=== PATIENT | female | born 1970 | race Hispanic/Latino ===

== ENCOUNTER 2018-01-06 07:31 | Emergency (ER) | payer SELFPAY ==
[2018-01-06] MEDS ORDERED: ONDANSETRON 4 MG/2 ML VIAL ONE (08:19)
[2018-01-06] MEDS ORDERED: FENTANYL CITR 100 MCG/2 ML ONE (08:19)
[2018-01-06 08:35] LABS: Absolute Lymphocytes (CBC) 1.1 K/uL (0.7-4.9); Absolute Monocytes 0.4 K/uL (0.1-1.3); Absolute Neutrophil 3.2 K/uL (1.8-8.0); Basophils % 0.9 % (0-1.3); Eosinophils % 4.8 % (0-4.4); Hematocrit 38.3 % (36.0-45.0); Lymphocytes % 22.7 % (15.3-44.8); MCH 28.9 pg (27.0-35.0); MCV 86.2 fL (80-100); MPV 8.4 fL (7.6-11.3); RBC Red Blood Cell Count 4.45 M/uL (3.86-4.86)
[2018-01-06 08:39] LABS: Bicarbonate 26 mEq/L (21-31); Glucose Level 139 mg/dL (65-120); Lipase 28 U/L (22-51); Potassium 3.9 mEq/L (3.6-5.0); Sodium Level 135 mEq/L (135-145)
[2018-01-06 08:45] LABS: ALT/SGPT 19 IU/L (10-60); AST/SGOT 21 IU/L (10-42); Albumin 4.1 g/dL (3.2-5.5); Alkaline Phosphatase 70 IU/L (42-121); BUN Blood Urea Nitrogen 15 mg/dL (6-20); Bilirubin Direct 0.1 mg/dL (0-0.2); Bilirubin Total 0.8 mg/dL (0.3-1.2); Protein, Total 7.9 g/dL (6.0-8.3)
[2018-01-06 08:49] LABS: Urine Blood NEGATIVE (NEG); Urine Glucose NEGATIVE (NEG); Urine Protein NEGATIVE (NEG)
[2018-01-06 09:04] LABS: Urine Bacteria <20 /HPF (<20); Urine Culture Reflex Order NOT NEEDED; Urine RBC <5 /HPF (NONE SEEN)
--- NOTE | 2018-01-06 09:37 | RAD REPORT ---
EXAM DESCRIPTION: CT - Stone Protocol - 01/06/2018 9:10 am CLINICAL HISTORY: Abdominal pain radiating to the back, right flank pain COMPARISON: None. TECHNIQUE: Axial 5 mm thick images were obtained without oral or IV contrast. The [id number] span s the entirety of the system including uppermost abdomen and lung bases. All CT scans are performed using dose optimization technique as appropriate and may include automated exposure control or mA/KV adjustment according to patient size. FINDINGS: No hydronephrosis is present and no obstructing ureteral calculi. A 7 millimeter nonobstru cting calculus is present lower pole right kidney. No suspicious renal masses. Isodense masses and py elonephritis are not excluded on a stone protocol CT scan. Partially filled urinary bladder shows no suspicious finding. No suspicious ovarian finding. Uterus has a lobulated contour likely contains 1 o r more fibroids. At the fundus the lobulation is up to 6 cm in diameter. Multiple pelvic floor phlebo liths are present. Imaged portions of the liver, spleen and pancreas show no suspicious findings on non-contrast imaging . Liver attenuation is borderline fatty infiltrated. No significant adrenal finding. Gallstones can b e occult on CT imaging. Ultrasound same date showed no gallstones. No suspicious bowel findings. No hernia, mass or bulky lymphadenopathy noted. No free air, free fluid or inflammatory stranding. No significant bony abnormality. IMPRESSION: No hydronephrosis, obstructing calculus or acute finding. A nonobstructing 7 mm calyx calcification present lower pole right kidney. No bladder abnormality identifiable. Enlarged lobulated uterus likely containing a dominant fundal fibroid. No ovarian abnormality. No acute GI process identifiable. Liver attenuation is borderline fatty infiltrated. Isodense masses and pyelonephritis are not excluded on stone protocol technique.
--- NOTE | 2018-01-06 09:46 | ER ---
Nurse's Notes [facility] Name: Luz Maria Gonzalez Age: 47 yrs Sex: Female : 1970 Arrival Date: 01/06/2018 Time: 07:33 Bed 19 Private MD: Diagnosis: Abdominal and pelvic pain;Nausea Presentation: 01/06 07:37 Presenting complaint: Patient states: RIGHT flank pain that radiates to RLQ and nausea hb x 2 days. Transition of care: patient was not received from another setting of care. Onset of symptoms was January 05, 2018. Initial Sepsis Screen: Does the patient meet any 2 criteria? No. Patient's initial sepsis screen is negative. Does the patient have a suspected source of infection? No. Patient's initial sepsis screen is negative. Care prior to arrival: None. 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 - Social history:: Smoking status: Patient/guardian denies using tobacco. Screenin:50 Abuse screen: Denies threats or abuse. Nutritional screening: No deficits noted. aa5 Tuberculosis screening: No symptoms or risk factors identified. Fall Risk None identified. Assessment: 07:50 General: Appears uncomfortable, Behavior is calm, cooperative. Pain: Complains of pain aa5 in right mid back Pain radiates to right upper quadrant Pain currently is 9 out of 10 on a pain scale. Quality of pain is described as aching, radiating, Is continuous, Also complains of nausea. Neuro: Level of Consciousness is awake, alert, obeys commands, Oriented to person, place, time, situation. Cardiovascular: Heart tones S1 S2 present Rhythm is regular. Respiratory: Airway is patent Respiratory effort is even, unlabored, Respiratory pattern is regular, symmetrical. GI: Abdomen is obese, Bowel sounds present X 4 quads. Abd is soft X 4 quads Abdomen is tender to palpation in right upper quadrant Reports nausea, Patient currently denies diarrhea, vomiting. : Reports burning with urination 2 weeks ago and has resolved. EENT: No signs and/or symptoms were reported regarding the EENT system. Derm: Skin is pink, warm \T\ dry. Musculoskeletal: Range of motion: intact in all extremities. 08:25 Reassessment: Patient and/or family updated on plan of care and expected duration. Pain aa5 level reassessed. Patient is alert, oriented x 3, equal unlabored respirations, skin warm/dry/pink. Pt back from US . 09:01 Reassessment: Patient and/or family updated on plan of care and expected duration. Pain aa5 level reassessed. Patient is alert, oriented x 3, equal unlabored respirations, skin warm/dry/pink. Patient states feeling better. Denies nausea . Pain: Pain currently is 4 out of 10 on a pain scale. 10:20 Reassessment: Patient is alert, oriented x 3, equal unlabored respirations, skin aa5 warm/dry/pink. Vital Signs: 07:37 BP 167 / 94; Pulse 69; Resp 16; Temp 98.1(TE); Pulse Ox 100% on R/A; Weight 95.25 kg; hb Height 5 ft. 2 in. (157.48 cm); Pain 9/10; 08:32 BP 144 / 71; Pulse 67; Resp 16 S; Pulse Ox 98% on R/A; Pain 9/10; aa5 09:20 BP 138 / 82; Pulse 65; Resp 16; Pulse Ox 97% on R/A; mh5 10:20 BP 131 / 84; Pulse 68; Resp 18 S; Pulse Ox 98% on R/A; Pain 3/10; aa5 07:37 Body Mass Index 38.41 (95.25 kg, 157.48 cm) hb ED Course: 07:33 Patient arrived in ED. as 07:38 Triage completed. hb 07:39 Arm band placed on right wrist. hb 07:50 Elias Rees PA is PHCP. jr8 07:50 Anthony Levine MD is Attending Physician. jr8 07:50 Patient has correct armband on for positive identification. Placed in gown. Bed in low aa5 position. Call light in reach. Side rails up X 1. Adult w/ patient. 07:50 Urine collected: clean catch specimen, clear. [facility] 07:58 Lindsay Nichols, RN is Primary Nurse. aa5 08:12 Initial lab(s) drawn, by me, sent to lab. Inserted saline lock: 20 gauge in right aa5 forearm, using aseptic technique. Blood collected. 08:18 Patient taken to ultrasound. aa4 08:29 US Abdomen Limited In Process Unspecified. EDMS 08:38 Patient moved back from ultrasound. aa4 09:09 CT completed. Patient tolerated procedure well. Patient moved to CT via wheelchair. Patient moved back from CT. 09:10 CT Stone Protocol In Process Unspecified. EDMS 10:20 IV discontinued, intact, bleeding controlled, No redness/swelling at site. Pressure aa5 dressing applied. 10:20 No provider procedures requiring assistance completed. aa5 Administered Medications: 08:25 Drug: Zofran 4 mg Route: IVP; Site: right forearm; aa5 08:27 Drug: fentaNYL (PF) 50 mcg Route: IVP; Site: right forearm; aa5 Outcome: 09:46 Discharge ordered by . griffin 10:25 Discharged to home ambulatory, with significant other. aa5 10:25 Condition: improved 10:25 Discharge instructions given to patient, Instructed on discharge instructions, follow up and referral plans. medication usage, Demonstrated understanding of instructions, follow-up care, medications, Prescriptions given X 2. 10:30 Patient left the ED. aa5 Signatures: Dispatcher [employer] EDItzel Damian Tayla Hernandez Amanda aa4 Lindsay Nichols, RN RN 5 Elias Rees PA PA Kath Johnson RN RN hb Martinez, Maria [facility]
--- NOTE | 2018-01-06 09:46 | EDPHYS ---
Physician Documentation [facility] Name: Luz Maria Gonzalez Age: 47 yrs Sex: Female : 1970 Arrival Date: 01/06/2018 Time: 07:33 Bed 19 Private MD: ED Physician Anthony Levine HPI: 01/06 08:18 This 47 yrs old Female presents to ER via Ambulatory with complaints of jr8 Abdominal Pain, Flank Pain, Nausea. 08:18 The patient presents with abdominal pain in the upper abdomen. Onset: The jr8 symptoms/episode began/occurred acutely, today. The symptoms radiate to right back, the right flank. Associated signs and symptoms: Pertinent positives: nausea. The symptoms are described as stabbing. Modifying factors: The symptoms are alleviated by nothing, the symptoms are aggravated by nothing. Severity of pain: At its worst the pain was moderate in the emergency department the pain is unchanged. The patient has not experienced similar symptoms in the past. The patient has not recently seen a physician. 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 - Social history:: Smoking status: Patient/guardian denies using tobacco. ROS: 08:39 Constitutional: Negative for fever, chills, and weight loss, Eyes: Negative for injury, jr8 pain, redness, and discharge, ENT: Negative for injury, pain, and discharge, Neck: Negative for injury, pain, and swelling, Cardiovascular: Negative for chest pain, palpitations, and edema, Respiratory: Negative for shortness of breath, cough, wheezing, and pleuritic chest pain, Back: Negative for injury and pain, MS/Extremity: Negative for injury and deformity, Skin: Negative for injury, rash, and discoloration, Neuro: Negative for headache, weakness, numbness, tingling, and seizure. 08:39 Abdomen/GI: Positive for abdominal pain, nausea, Negative for vomiting, diarrhea, constipation, abdominal cramps, abdominal distension, anorexia, dysphagia, hematemesis, black/tarry stool, rectal pain, rectal bleeding, bowel incontinence, flatulence. Exam: 08:39 Eyes: Pupils equal round and reactive to light, extra-ocular motions intact. Lids and jr8 lashes normal. Conjunctiva and sclera are non-icteric and not injected. Cornea within normal limits. Periorbital areas with no swelling, redness, or edema. ENT: Nares patent. No nasal discharge, no septal abnormalities noted. Tympanic membranes are normal and external auditory canals are clear. Oropharynx with no redness, swelling, or masses, exudates, or evidence of obstruction, uvula midline. Mucous membranes moist. Neck: Trachea midline, no thyromegaly or masses palpated, and no cervical lymphadenopathy. Supple, full range of motion without nuchal rigidity, or vertebral point tenderness. No Meningismus. Cardiovascular: Regular rate and rhythm with a normal S1 and S2. No gallops, murmurs, or rubs. Normal PMI, no JVD. No pulse deficits. Respiratory: Lungs have equal breath sounds bilaterally, clear to auscultation and percussion. No rales, rhonchi or wheezes noted. No increased work of breathing, no retractions or nasal flaring. Back: No spinal tenderness. No costovertebral tenderness. Full range of motion. Skin: Warm, dry with normal turgor. Normal color with no rashes, no lesions, and no evidence of cellulitis. MS/ Extremity: Pulses equal, no cyanosis. Neurovascular intact. Full, normal range of motion. Neuro: Awake and alert, GCS 15, oriented to person, place, time, and situation. Cranial nerves II-XII grossly intact. Motor strength 5/5 in all extremities. Sensory grossly intact. Cerebellar exam normal. Normal gait. 08:39 Abdomen/GI: Inspection: abdomen appears normal, Bowel sounds: active, all quadrants, Palpation: soft, in all quadrants, moderate abdominal tenderness, in the right upper quadrant, mass, is not appreciated, rebound tenderness, is not appreciated, voluntary guarding, is not appreciated, involuntary guarding, is not appreciated, no appreciated organomegaly, Indicators: McBurney's point is not tender, Rodriguez's sign is negative, Rovsing's sign is negative, Liver: no appreciated palpable abnormalities, tenderness, is not appreciated. Vital Signs: 07:37 BP 167 / 94; Pulse 69; Resp 16; Temp 98.1(TE); Pulse Ox 100% on R/A; Weight 95.25 kg; hb Height 5 ft. 2 in. (157.48 cm); Pain 9/10; 08:32 BP 144 / 71; Pulse 67; Resp 16 S; Pulse Ox 98% on R/A; Pain 9/10; aa5 09:20 BP 138 / 82; Pulse 65; Resp 16; Pulse Ox 97% on R/A; mh5 10:20 BP 131 / 84; Pulse 68; Resp 18 S; Pulse Ox 98% on R/A; Pain 3/10; aa5 07:37 Body Mass Index 38.41 (95.25 kg, 157.48 cm) hb MDM: 07:50 Patient medically screened. jr8 09:41 Differential diagnosis: cholecystitis, Cholelithiasis, Hepatitis, non-specific abd jr8 pain, pancreatitis, Peptic Ulcer Disease, Pyelonephritis, Ureterolithiasis, urinary tract infection. Data reviewed: vital signs, nurses notes, lab test result(s), radiologic studies, CT scan, ultrasound, and as a result, I will discharge patient. Data interpreted: Pulse oximetry: on room air is 97 %. Interpretation: normal. 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 Special discussion: Based on the patient's Hx, exam, and Dx evaluation, there is no indication for emergent surgery or inpatient Tx. It is understood by the patient/guardian that if the Sx's persist or worsen they need to return immediately for re-evaluation. 09:48 ED course: No acute findings on imaging or labs. Patient resting comfortably in exam jr8 room. No pain with reexamination. Family and patient good with being D/C'd on meds and following up. If worse would come back . 01/06 07:55 Order name: Urine Dipstick--Ancillary (enter results); Complete Time: 08:53 bd 01/06 07:55 Order name: Urine --Ancillary (enter results); Complete Time: 08:53 01/06 08:00 Order name: Basic Metabolic Panel; Complete Time: 08:53 01/06 08:00 Order name: CBC with Diff; Complete Time: 08:53 01/06 08:00 Order name: Creatinine for Radiology; Complete Time: 08:39 01/06 08:00 Order name: Hepatic Function; Complete Time: 08:53 01/06 08:00 Order name: Lipase; Complete Time: 08:53 01/06 08:00 Order name: Urine Microscopic Only; Complete Time: 09:14 01/06 08:00 Order name: IV Saline Lock; Complete Time: 08:15 01/06 08:01 Order name: US Abdomen Limited; Complete Time: 10:07 01/06 08:53 Order name: CT Stone Protocol; Complete Time: 09:41 01/06 08:00 Order name: Labs collected and sent; Complete Time: 08:15 Administered Medications: 08:25 Drug: Zofran 4 mg Route: IVP; Site: right forearm; aa5 08:27 Drug: fentaNYL (PF) 50 mcg Route: IVP; Site: right forearm; aa5 Disposition: 12:43 Co-signature as Attending Physician, Anthony Levine MD. Disposition: 01/06/18 09:46 Discharged to Home. Impression: Abdominal and pelvic pain, Nausea. - Condition is Stable. - Discharge Instructions: Abdominal Pain, Adult, Nausea, Adult. - Prescriptions for Zofran 4 mg Oral Tablet - take 1 tablet by ORAL route every 12 hours As needed; 20 tablet. Tramadol 50 mg Oral Tablet - take 1 tablet by ORAL route every 8 hours as needed; 12 tablet. - Work release form, Family Work Release, Medication Reconciliation Form, Thank You Letter, Antibiotic Education, Prescription Opioid Use form. - Follow up: Private Physician; When: 1 - 2 days; Reason: Recheck today's complaints, Continuance of care, Re-evaluation by your physician. - Problem is new. - Symptoms have improved. Signatures: Dispatcher [employer] EDLindsay Burnette RN RN aa5 Elias Rees PA PA jr8 Kath Barton RN RN Anthony Cedillo MD MD gs Corrections: (The following items were deleted from the chart) 08:12 08:01 Stone Protocol+CT.RAD.BRZ ordered. EDMS EDMS
--- NOTE | 2018-01-06 10:04 | RAD REPORT ---
EXAM DESCRIPTION: US - Abdomen Exam Limited - 01/06/2018 8:29 am CLINICAL HISTORY: Abdominal pain, right upper quadrant pain COMPARISON: None. FINDINGS: No gallstones, sludge or other abnormalities within the gallbladder lumen. There is no wal l thickening or pericholecystic fluid. No common duct stone or biliary tree dilatation identified. IMPRESSION: Normal gallbladder and biliary tree ultrasound.
== END 2018-01-06 10:30 | disposition home or self-care (01) ==
LOC: ER 07:31
DX: R11.0 Nausea (principal); I10 Essential (primary) hypertension; E11.9 Type 2 diabetes mellitus without complications; F32.9 Major depressive disorder, single episode, unspecified
CPT/HCPCS: 36415; 74176; 76377; 76705; 80048; 80076; 81003; 81015; 81025; 83690; 85025; 96374; 96375; 99284; J2405; J3010

== ENCOUNTER 2018-02-10 06:09 | Emergency (ER) | payer OTHER, SELFPAY ==
[2018-02-10] MEDS ORDERED: ONDANSETRON 4 MG (ODT) TAB ONE (06:38)
[2018-02-10] MEDS ORDERED: CLINDAMYCIN HCL 150 MG CAP ONE (06:38)
[2018-02-10] MEDS ORDERED: HYDROCODONE/APAP 5/325 MG TAB ONE (06:38)
--- NOTE | 2018-02-10 07:43 | ER ---
Nurse's Notes [facility] Name: Luz Maria Gonzalez Age: 47 yrs Sex: Female : 1970 Arrival Date: 02/10/2018 Time: 06:12 Bed 5 Private MD: Diagnosis: Insect bite (nonvenomous) of lower leg Presentation: 02/10 06:24 Presenting complaint: Patient states: SOMETHING BIT ME ON THE LEG. Transition of care: bp patient was not received from another setting of care. Onset of symptoms was February 09, 2018 at 09:00. Risk Assessment: Do you want to hurt yourself or someone else? Patient reports no desire to harm self or others. Initial Sepsis Screen: Does the patient meet any 2 criteria? No. Patient's initial sepsis screen is negative. Does the patient have a suspected source of infection? No. Patient's initial sepsis screen is negative. Care prior to arrival: None. 06:24 Method Of Arrival: Ambulatory bp 06:24 Acuity: ROLO 4 bp Triage Assessment: 06:26 Bite description: bite sustained to medial aspect of right calf by a spider, animal bp information: UNWITNESSED. General: Appears in no apparent distress. comfortable, obese, Behavior is calm, cooperative, appropriate for age. Pain: Complains of pain in medial aspect of right calf. EENT: No deficits noted. Neuro: Level of Consciousness is awake, alert, obeys commands, Oriented to person, place, time, situation, Appropriate for age. Cardiovascular: No deficits noted. Respiratory: Airway is patent Respiratory effort is even, unlabored, Respiratory pattern is regular, symmetrical. GI: No signs and/or symptoms were reported involving the gastrointestinal system. : No signs and/or symptoms were reported regarding the genitourinary system. Derm: Wound noted medial aspect of right calf Wound is 1 CM LESION WITH 5 CM INDURATED AREA. Musculoskeletal: Circulation, motion, and sensation intact. Range of motion: intact in all extremities. 07:58 Bite description: animal information: vaccination(s) is not applicable. 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 - Social history:: Smoking status: Patient/guardian denies using tobacco. - Ebola Screening: : Patient negative for fever greater than or equal to 101.5 degrees Fahrenheit, and additional compatible Ebola Virus Disease symptoms Patient denies exposure to infectious person Patient denies travel to an Ebola-affected area in the 21 days before illness onset No symptoms or risks identified at this time. Screenin:30 Abuse screen: Denies threats or abuse. Denies injuries from another. Nutritional bp screening: No deficits noted. Tuberculosis screening: No symptoms or risk factors identified. Fall Risk None identified. Assessment: 06:29 General: SEE TRIAGE NOTE. PT DENIES WITNESSING "SPIDER BITE", NOTICED LESION Y/D AFTER bp WORK. Derm: Skin is intact, is healthy with good turgor, Skin is pink, warm \\T\\ dry. 07:58 Reassessment: Patient appears in no apparent distress at this time. Patient and/or iw family updated on plan of care and expected duration. Pain level reassessed. Patient is alert, oriented x 3, equal unlabored respirations, skin warm/dry/pink. Patient states symptoms have improved. Vital Signs: 06:26 BP 135 / 74; Pulse 71; Resp 16; Temp 97.9; Pulse Ox 99% ; Weight 88.45 kg; Height 5 ft. bp 2 in. (157.48 cm); 07:58 BP 117 / 78; Pulse 87; Resp 16; Pulse Ox 98% on R/A; Pain 0/10; iw 06:26 Body Mass Index 35.67 (88.45 kg, 157.48 cm) bp ED Course: 06:12 Patient arrived in ED. es 06:19 Madison Yang FNP-C is PHCP. snw 06:19 Chau Mattson MD is Attending Physician. snw 06:24 William Lopez, VALENTÍN is Primary Nurse. bp 06:25 Triage completed. bp 06:26 Arm band placed on. bp 06:30 Patient has correct armband on for positive identification. Bed in low position. Call bp light in reach. Side rails up X2. Adult w/ patient. 07:58 No provider procedures requiring assistance completed. Patient did not have IV access iw during this emergency room visit. Administered Medications: 06:38 Drug: Zofran 4 mg Route: PO; bp 06:39 Follow up: Response: No adverse reaction bp 06:39 Drug: Clindamycin 300 mg Route: PO; bp 06:39 Follow up: Response: No adverse reaction bp 06:39 Drug: [place] 5 mg-325 mg 1 tabs Route: PO; bp 06:39 Follow up: Response: Pain is decreased bp Outcome: 07:42 Discharge ordered by MD. galvan 07:58 Discharged to home ambulatory, with family. iw 07:58 Condition: good 07:58 Discharge instructions given to patient, family, Instructed on discharge instructions, follow up and referral plans. medication usage, Demonstrated understanding of instructions, follow-up care, medications, Prescriptions given X 2. 07:58 Patient left the ED. iw Signatures: Madison Yang, FLAT MACHINE CUTTER-C FLAT MACHINE CUTTER-Csnw Era Emerson Irene, RN RN iw William Lopez RN RN bp
--- NOTE | 2018-02-10 07:43 | EDPHYS ---
Physician Documentation [facility] Name: Luz Maria Gonzalez Age: 47 yrs Sex: Female : 1970 Arrival Date: 02/10/2018 Time: 06:12 Bed 5 Private MD: ED Physician Chau Mattson HPI: 02/10 06:37 This 47 yrs old Female presents to ER via Ambulatory with complaints of Insect snw Bite. 06:37 Onset: The symptoms/episode began/occurred suddenly, yesterday. The patient has not snw experienced similar symptoms in the past. It is unknown whether or not the patient has recently seen a physician. no fever, + tender to touch. 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 - Social history:: Smoking status: Patient/guardian denies using tobacco. - Ebola Screening: : Patient negative for fever greater than or equal to 101.5 degrees Fahrenheit, and additional compatible Ebola Virus Disease symptoms Patient denies exposure to infectious person Patient denies travel to an Ebola-affected area in the 21 days before illness onset No symptoms or risks identified at this time. ROS: 06:34 Constitutional: Negative for fever, chills, and weight loss, Eyes: Negative for injury, snw pain, redness, and discharge, ENT: Negative for injury, pain, and discharge, Neck: Negative for injury, pain, and swelling, Cardiovascular: Negative for chest pain, palpitations, and edema, Respiratory: Negative for shortness of breath, cough, wheezing, and pleuritic chest pain, Abdomen/GI: Negative for abdominal pain, nausea, vomiting, diarrhea, and constipation, Back: Negative for injury and pain, : Negative for injury, bleeding, discharge, and swelling, MS/Extremity: Negative for injury and deformity, Neuro: Negative for headache, weakness, numbness, tingling, and seizure. 06:34 Skin: Positive for puncture, swelling, of the medial aspect of right calf. Exam: 06:34 Constitutional: This is a well developed, well nourished patient who is awake, alert, snw and in no acute distress. Head/Face: Normocephalic, atraumatic. Eyes: Pupils equal round and reactive to light, extra-ocular motions intact. Lids and lashes normal. Conjunctiva and sclera are non-icteric and not injected. Cornea within normal limits. Periorbital areas with no swelling, redness, or edema. ENT: Nares patent. No nasal discharge, no septal abnormalities noted. Tympanic membranes are normal and external auditory canals are clear. Oropharynx with no redness, swelling, or masses, exudates, or evidence of obstruction, uvula midline. Mucous membranes moist. Neck: Trachea midline, no thyromegaly or masses palpated, and no cervical lymphadenopathy. Supple, full range of motion without nuchal rigidity, or vertebral point tenderness. No Meningismus. Chest/axilla: Normal chest wall appearance and motion. Nontender with no deformity. No lesions are appreciated. Cardiovascular: Regular rate and rhythm with a normal S1 and S2. No gallops, murmurs, or rubs. Normal PMI, no JVD. No pulse deficits. Respiratory: Lungs have equal breath sounds bilaterally, clear to auscultation and percussion. No rales, rhonchi or wheezes noted. No increased work of breathing, no retractions or nasal flaring. Abdomen/GI: Soft, non-tender, with normal bowel sounds. No distension or tympany. No guarding or rebound. No evidence of tenderness throughout. Back: No spinal tenderness. No costovertebral tenderness. Full range of motion. MS/ Extremity: Pulses equal, no cyanosis. Neurovascular intact. Full, normal range of motion. Neuro: Awake and alert, GCS 15, oriented to person, place, time, and situation. Cranial nerves II-XII grossly intact. Motor strength 5/5 in all extremities. Sensory grossly intact. Cerebellar exam normal. Normal gait. 06:34 Skin: Appearance: normal except for affected area, injury, bite(s), small with scab and small area of erythema surrounding puncture. Will remove scab and give po antibiotics. pt NIDDM. Vital Signs: 06:26 BP 135 / 74; Pulse 71; Resp 16; Temp 97.9; Pulse Ox 99% ; Weight 88.45 kg; Height 5 ft. bp 2 in. (157.48 cm); 07:58 BP 117 / 78; Pulse 87; Resp 16; Pulse Ox 98% on R/A; Pain 0/10; iw 06:26 Body Mass Index 35.67 (88.45 kg, 157.48 cm) bp MDM: 06:19 Patient medically screened. snw 07:43 Data reviewed: vital signs, nurses notes. Data interpreted: Pulse oximetry: on room air snw is 99 %. Interpretation: normal. Counseling: I had a detailed discussion with the patient and/or guardian regarding: the historical points, exam findings, and any diagnostic results supporting the discharge/admit diagnosis, the need for outpatient follow up, to return to the emergency department if symptoms worsen or persist or if there are any questions or concerns that arise at home. Special discussion: Based on the history and exam findings, there is no indication for further emergent testing or inpatient evaluation. I discussed with the patient/guardian the need to see the primary care provider for further evaluation of the symptoms. Administered Medications: 06:38 Drug: Zofran 4 mg Route: PO; bp 06:39 Follow up: Response: No adverse reaction bp 06:39 Drug: Clindamycin 300 mg Route: PO; bp 06:39 Follow up: Response: No adverse reaction bp 06:39 Drug: [place] 5 mg-325 mg 1 tabs Route: PO; bp 06:39 Follow up: Response: Pain is decreased bp Disposition: 15:09 Co-signature as Attending Physician, Chau Mattson MD I agree with the assessment and maykel plan of care. Disposition: 02/10/18 07:42 Discharged to Home. Impression: Insect bite (nonvenomous) of lower leg. - Condition is Stable. - Discharge Instructions: Insect Bite. - Prescriptions for Bactroban 2 % Topical Ointment - Apply to affected area 1 application by TOPICAL route every 12 hours; 30 gram. Clindamycin HCl 300 mg Oral Capsule - take 1 capsule by ORAL route every 8 hours for 10 days; 30 capsule. - Medication Reconciliation Form, Thank You Letter, Antibiotic Education, Prescription Opioid Use, Work release form, Family Work Release form. - Follow up: Private Physician; When: 2 - 3 days; Reason: Recheck today's complaints, Continuance of care, Re-evaluation by your physician. Follow up: Emergency Department; When: As needed; Reason: Worsening of condition. Signatures: Chau Mattson MD MD cha Therrien, Shelly, BANDAGE WINDING MACHINE OPERATOR-C BANDAGE WINDING MACHINE OPERATOR-Csnw Bharati Martin, RN RN William Segovia RN RN bp Corrections: (The following items were deleted from the chart) 07:58 07:42 02/10/2018 07:42 Discharged to Home. Impression: Insect bite (nonvenomous) of iw lower leg. Condition is Stable. Discharge Instructions: Insect Bite. Prescriptions for Bactroban 2 % Topical Ointment - Apply to affected area 1 application by TOPICAL route every 12 hours; 30 gram, Clindamycin HCl 300 mg Oral Capsule - take 1 capsule by ORAL route every 8 hours for 10 days; 30 capsule. and Forms are Medication Reconciliation Form, Thank You Letter, Antibiotic Education, Prescription Opioid Use. Follow up: Private Physician; When: 2 - 3 days; Reason: Recheck today's complaints, Continuance of care, Re-evaluation by your physician. Follow up: Emergency Department; When: As needed; Reason: Worsening of condition. snw
== END 2018-02-10 07:58 | disposition home or self-care (01) ==
LOC: ER 06:09
DX: S80.861A Insect bite (nonvenomous), right lower leg, initial encounter (principal); F32.9 Major depressive disorder, single episode, unspecified; E11.9 Type 2 diabetes mellitus without complications; I10 Essential (primary) hypertension
CPT/HCPCS: 99283

== ENCOUNTER 2018-02-28 13:58 | Emergency (ER) | payer OTHER, SELFPAY ==
[2018-02-28] MEDS ORDERED: HYDROCODONE/APAP 10/325 TAB ONE (15:54)
[2018-02-28] MEDS ORDERED: CEFTRIAXONE 1000 MG/VIAL ONE (15:54)
[2018-02-28] MEDS ORDERED: LIDOCAINE 1% MPF 5 ML VIAL ONE (15:54)
--- NOTE | 2018-02-28 16:00 | ER ---
Nurse's Notes [facility] Name: Luz Maria Gonzalez Age: 48 yrs Sex: Female : 1970 Arrival Date: 02/28/2018 Time: 14:02 Bed 26 Private MD: None, None Diagnosis: Cellulitis of right lower limb Presentation: 02/28 14:22 Presenting complaint: Patient states: bitten by unknown insect 2 days ago. Pt reports sv increased redness and swelling. Pain with ambulation. Transition of care: patient was not received from another setting of care. Onset of symptoms was February 26, 2018. Risk Assessment: Do you want to hurt yourself or someone else? Patient reports no desire to harm self or others. Care prior to arrival: None. 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 - Social history:: Smoking status: Patient/guardian denies using tobacco. - Ebola Screening: : No symptoms or risks identified at this time. Screenin:46 Abuse screen: Denies threats or abuse. Nutritional screening: No deficits noted. tl3 Tuberculosis screening: No symptoms or risk factors identified. Fall Risk None identified. Assessment: 15:46 General: Appears uncomfortable, well groomed, well developed, well nourished, Behavior tl3 is calm, cooperative, appropriate for age. Pain: Complains of pain in right ankle. Neuro: Level of Consciousness is awake, alert, obeys commands, Oriented to person, place, time, situation, Appropriate for age. Cardiovascular: Patient's skin is warm and dry. Respiratory: Airway is patent Respiratory effort is even, unlabored, Respiratory pattern is regular, symmetrical. GI:. GI: No signs and/or symptoms were reported involving the gastrointestinal system. : No signs and/or symptoms were reported regarding the genitourinary system. EENT: No signs and/or symptoms were reported regarding the EENT system. Derm: Reports pain. Musculoskeletal: Reports pain in right ankle from insect bite, ankle and foot mildly swollen. Vital Signs: 14:24 BP 152 / 70; Pulse 77; Resp 18; Temp 98; Pulse Ox 97% ; Weight 95.25 kg; Height 5 ft. 2 sv in. (157.48 cm); Pain 8/10; 15:46 BP 132 / 78; Pulse 69; Resp 18; Pulse Ox 97% ; tl3 16:42 BP 128 / 75; Pulse 72; Resp 18; Pulse Ox 99% on R/A; tl3 14:24 Body Mass Index 38.41 (95.25 kg, 157.48 cm) sv ED Course: 14:02 Patient arrived in ED. mr 14:02 None, None is Private Physician. mr 14:23 Triage completed. sv 14:25 Arm band placed on right wrist. sv 14:25 Patient placed in waiting room. sv 15:19 Mady Tyler, VALENTÍN is Primary Nurse. tl3 15:23 Elias Rees PA is PHCP. jr8 15:23 Harrison Escobedo MD is Attending Physician. jr8 15:46 Patient has correct armband on for positive identification. Placed in gown. Bed in low tl3 position. Call light in reach. Side rails up X 1. Adult w/ patient. Pulse ox on. NIBP on. 15:46 No provider procedures requiring assistance completed. Patient did not have IV access tl3 during this emergency room visit. Administered Medications: 15:58 Drug: Rocephin (cefTRIAXone) 1 grams Route: IM; Site: right gluteus; tl3 16:42 Follow up: Response: No adverse reaction tl3 15:58 Drug: [place] 10 mg-325 mg 1 tabs Route: PO; tl3 16:42 Follow up: Response: No adverse reaction; Pain is decreased tl3 Outcome: 15:59 Discharge ordered by . jr8 16:42 Patient left the ED. sv Signatures: Kaye Lindquist RN RN Luz Maria Mireles mr Elias Rees PA PA jr8 Mady Tyler RN RN tl3
--- NOTE | 2018-02-28 16:00 | EDPHYS ---
Physician Documentation [facility] Name: Luz Maria Gonzalez Age: 48 yrs Sex: Female : 1970 Arrival Date: 02/28/2018 Time: 14:02 Bed 26 Private MD: None, None ED Physician Harrison Escobedo HPI: 02/28 15:50 This 48 yrs old Female presents to ER via Ambulatory with complaints of Ankle jr8 Swelling. 15:50 The complaints affect the right ankle. Onset: The symptoms/episode began/occurred jr8 gradually, 2 day(s) ago. Associated signs and symptoms: Pertinent positives: warmth. Modifying factors: The symptoms are alleviated by nothing, the symptoms are aggravated by weight bearing, movement. Severity of symptoms: At their worst the symptoms were moderate, in the emergency department the symptoms are unchanged. The patient has not experienced similar symptoms in the past. The patient has not recently seen a physician. Patient stated that she thinks she was bit by something the other day. Has swelling to ankle with redness. Pain with touch and weight bear . 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 - Social history:: Smoking status: Patient/guardian denies using tobacco. - Ebola Screening: : No symptoms or risks identified at this time. ROS: 15:50 Eyes: Negative for injury, pain, redness, and discharge, ENT: Negative for injury, jr8 pain, and discharge, Neck: Negative for injury, pain, and swelling, Cardiovascular: Negative for chest pain, palpitations, and edema, Respiratory: Negative for shortness of breath, cough, wheezing, and pleuritic chest pain, Abdomen/GI: Negative for abdominal pain, nausea, vomiting, diarrhea, and constipation, Back: Negative for injury and pain, MS/Extremity: Negative for injury and deformity, Neuro: Negative for headache, weakness, numbness, tingling, and seizure. 15:50 Skin: Positive for erythema, swelling, of the right ankle. Exam: 15:50 Cardiovascular: Regular rate and rhythm with a normal S1 and S2. No gallops, murmurs, jr8 or rubs. Normal PMI, no JVD. No pulse deficits. Respiratory: Lungs have equal breath sounds bilaterally, clear to auscultation and percussion. No rales, rhonchi or wheezes noted. No increased work of breathing, no retractions or nasal flaring. MS/ Extremity: Pulses equal, no cyanosis. Neurovascular intact. Full, normal range of motion. Neuro: Awake and alert, GCS 15, oriented to person, place, time, and situation. Cranial nerves II-XII grossly intact. Motor strength 5/5 in all extremities. Sensory grossly intact. Cerebellar exam normal. Normal gait. 15:50 Skin: induration, that is moderate is noted, located on the right ankle, Patient has approximately 2.5 cm region to lateral ankle near Achillis that is red and well demarcated. Indurated without fluctuance. Mild surrounding cellulitis noted. No lymphangitis . Vital Signs: 14:24 BP 152 / 70; Pulse 77; Resp 18; Temp 98; Pulse Ox 97% ; Weight 95.25 kg; Height 5 ft. 2 sv in. (157.48 cm); Pain 8/10; 15:46 BP 132 / 78; Pulse 69; Resp 18; Pulse Ox 97% ; tl3 16:42 BP 128 / 75; Pulse 72; Resp 18; Pulse Ox 99% on R/A; tl3 14:24 Body Mass Index 38.41 (95.25 kg, 157.48 cm) sv MDM: 15:23 Patient medically screened. jr8 15:50 Data reviewed: vital signs, nurses notes, and as a result, I will discharge patient. jr8 Data interpreted: Pulse oximetry: on room air is 97 %. Interpretation: normal. Counseling: I had a detailed discussion with the patient and/or guardian regarding: the historical points, exam findings, and any diagnostic results supporting the discharge/admit diagnosis, the need for outpatient follow up, a family practitioner, to return to the emergency department if symptoms worsen or persist or if there are any questions or concerns that arise at home. Administered Medications: 15:58 Drug: Rocephin (cefTRIAXone) 1 grams Route: IM; Site: right gluteus; tl3 16:42 Follow up: Response: No adverse reaction tl3 15:58 Drug: [place] 10 mg-325 mg 1 tabs Route: PO; tl3 16:42 Follow up: Response: No adverse reaction; Pain is decreased tl3 Disposition: 18:36 Co-signature as Attending Physician, Harrison Escobedo MD. rn Disposition: 02/28/18 15:59 Discharged to Home. Impression: Cellulitis of right lower limb. - Condition is Stable. - Discharge Instructions: Cellulitis. - Prescriptions for Bactroban 2 % Topical Ointment - Apply to affected area 1 application by TOPICAL route every 12 hours; 30 gram. Bactrim DS 800- 160 mg Oral Tablet - take 1 tablet by ORAL route every 12 hours for 10 days; 20 tablet. - Medication Reconciliation Form, Thank You Letter, Antibiotic Education, Prescription Opioid Use, Work release form form. - Follow up: Private Physician; When: 2 - 3 days; Reason: Recheck today's complaints, Continuance of care, Re-evaluation by your physician. - Problem is new. - Symptoms have improved. Signatures: Kaye Lindquist RN RN sv Harrison Escobedo MD MD rn Roszak, Josh, PA PA jr8 Mady Tyler RN RN tl3 Corrections: (The following items were deleted from the chart) 16:42 15:59 02/28/2018 15:59 Discharged to Home. Impression: Cellulitis of right lower limb. sv Condition is Stable. Forms are Medication Reconciliation Form, Thank You Letter, Antibiotic Education, Prescription Opioid Use. Follow up: Private Physician; When: 2 - 3 days; Reason: Recheck today's complaints, Continuance of care, Re-evaluation by your physician. Problem is new. Symptoms have improved. jr8
== END 2018-02-28 16:42 | disposition home or self-care (01) ==
LOC: ER 13:58
DX: L03.115 Cellulitis of right lower limb (principal); I10 Essential (primary) hypertension; E11.9 Type 2 diabetes mellitus without complications; F32.9 Major depressive disorder, single episode, unspecified
CPT/HCPCS: 96372; 99283

== ENCOUNTER 2018-03-25 13:53 | Emergency (ER) | payer SELFPAY ==
--- OUTSIDE RECORDS SUMMARY | 2018-03-25 13:55 | XMS REPORT | Continuity of Care Document ---
:1970 Author Organization Interface Problems Problem Status Onset Classification Date Comments Source Date Reported Backache<sup>2</ Active 04/02/20 Problem 01/27/2018 Data migrated MH sup> 17 from [place] [facility] 07/23/2017. Originally documented as Back pain, acute. Liver function Active 03/29/20 Problem 01/27/2018 Data migrated MH tests 17 from [employer] abnormal<sup>6</ [facility] sup> 07/23/2017. Originally documented as Abnormal liver function tests. Allergic Active 03/15/20 Problem 01/27/2018 Data migrated MH rhinitis<sup>1</ 17 from [employer] sup> [facility] 07/23/2017. Originally documented as Allergic rhinitis (hayfever). Depressive Active 03/15/20 Problem 01/27/2018 Data migrated MH disorder<sup>3</ 17 from [employer] sup> [facility] 07/23/2017. Originally documented as Depression NOS. Hypertensive Active 03/15/20 Problem 01/27/2018 Data migrated MH disorder<sup>4</ 17 from [employer] sup> [facility] 07/23/2017. Originally documented as Hypertension (High blood pressure). Impaired glucose Active 03/15/20 Problem 01/27/2018 Data migrated MH tolerance<sup>5< 17 from [employer] /sup> [facility] 07/23/2017. Originally documented as Prediabetes. Morbid Active 03/15/20 Problem 01/27/2018 Data migrated MH obesity<sup>7</s 17 from [employer] up> [facility] 07/23/2017. Originally documented as Obesity, morbid (extreme) (BMI=40 or above). Left lateral Active Problem 01/27/2018 epicondylitis Medical Group Medications Medication Details Route Status Patient Ordering Order Source Instructions Provider Date Dexamethasone 2 mg, Inactive Route: IM, 2018 Medical ONCE, Group Dosing Weight 94.602, kg, Priority: STAT, Start date: 10/21/17 10:51:00 CIVIL CLERK, Stop date: 10/21/17 10:51:00 CIVIL CLERK Metformin See Active hydrochloride 500 MG Instructio 2017 Medical Oral Tablet ns, TAKE Group ONE TABLET BY MOUTH TWICE DAILY FOR BLOOD SUGAR, # 180 tab, 1 Refill(s), Pharmacy: [facility] Paroxetine 10 MG Oral 10 mg=1 Active Tablet [Paxil] tab, PO, 2016 Medical Daily, # Group 90 tab, 1 Refill(s), Pharmacy: [facility] montelukast 10 mg 10 mg=1 Active oral tablet tab, PO, 2017 Medical Bedtime, # Group 90 tab, 1 Refill(s), Pharmacy: [facility] Hydrochlorothiazide 25 mg=1 Active 25 MG Oral Tablet tab, PO, 2016 Medical Daily, # Group 90 tab, 1 Refill(s), Pharmacy: [facility] Fish Oil PO, 0 Active Refill(s) 2016 Medical Group Ibuprofen 200 MG Oral 400 mg=2 Active Tablet [Motrin] tab, PO, 2016 Medical Q4H, PRN Group Pain, # 120 tab, 0 Refill(s) Paroxetine 10 MG Oral 10 mg=1 Inactive Tablet [Paxil] tab, PO, 2016 Medical Daily, # Group 30 tab, 0 Refill(s) Hydrochlorothiazide 25 mg=1 Inactive 08/09/ 25 MG Oral Tablet tab, PO, 2016 Medical Daily, # Group 30 tab, 0 Refill(s) montelukast 10 mg 10 mg=1 Inactive 08/09/ oral tablet tab, PO, 2016 Medical Bedtime, # Group 30 tab, 0 Refill(s) Allergies, Adverse Reactions, Alerts Substance Category Reaction Severity Reaction Status Date Comments Source type Reported NKDA Assertion Drug Active allergy Medical Group Immunizations Immunization Date Given Site Status Last Updated Comments Source influenza virus 06/20/2017 completed [facility] vaccine, Group inactivated Results Order Results Value Reference Date Interpretation Comments Source Name Range Elbow 2 Elbow 2 XR LEFT ELBOW 2V [facility] views DX 2018 - [place] DX HISTORY: - Pain above lateral epicondyle. Suspect epicondylitis. X-ray prior to injection to rule out other pathology.. Read by: Oren Oliva MD Dictated Date/time: 10/21/17 10:03 Electronically Signed by: Oren Oliva MD 10/21/17 10:04 FINAL REPORT COMPARISON: None. FINDINGS: AP and lateral images of the left elbow demonstrate no significant bone, joint or soft tissue abnormality. No joint effusion is noted. IMPRESSION: Negative. SL : [id number] Vital Signs Vital Sign Value Date Comments Source BMI Calculated 38.15 10/21/2017 Medical Group Respitory Rate 16 10/21/2017 Medical Group Temperature Oral (F) 97.3 F 10/21/2017 Medical Group Heart Rate 65 10/21/2017 Medical Group Height 157.48 cm 10/21/2017 Medical Group Weight 94.602 10/21/2017 Medical Group Systolic (mm Hg) 139 10/21/2017 Medical Group Diastolic (mm Hg) 78 10/21/2017 Medical Group Height 159.2 cm 10/10/2017 Medical Group Weight 95.966 10/10/2017 Medical Group BMI Calculated 37.86 10/10/2017 Medical Group Systolic (mm Hg) 136 10/10/2017 Medical Group Diastolic (mm Hg) 77 10/10/2017 Medical Group Heart Rate 68 10/10/2017 Medical Group Temperature Oral (F) 96.2 F 10/10/2017 Medical Group Respitory Rate 15 10/10/2017 Medical Group Weight 97.091 08/09/2017 Medical Group BMI Calculated 39.15 08/09/2017 Medical Group Height 157.48 cm 08/09/2017 Medical Group Systolic (mm Hg) 139 08/09/2017 Medical Group Diastolic (mm Hg) 86 08/09/2017 Medical Group Respitory Rate 18 08/09/2017 Medical Group Heart Rate 79 08/09/2017 Medical Group Encounters Location Location Encounter Encounter Reason Attending ADM DC Status Source Details Type Number For Provider Date Date Visit Outpatient [id number] PAVAN 08/09 [facility] Outpatient [id number] Pavan 08/09 08/10 [facility] Phone [id number] 08/13 08/15 [facility] [place] [facility] [place] [facility] Outpatient [id number] KATIE 10/10 [facility] Outpatient [id number] [place] 10/10 10/11 [facility] Phone [id number] 10/15 10/17 [facility] [place] [facility] Outpatient [id number] NOOR 10/21 [facility] Outpatient [id number] [place] 10/21 10/22 [facility] [place] [facility] Procedures Procedure Code Date Perfomer Comments Source Injection(s); 10/22/2017 Medical single tendon Group origin/insertion 10/21/2017 Medical Group Injection(s); 10/21/2017 Medical single tendon Group origin/insertion Wrist [id number] Medical Group
--- OUTSIDE RECORDS SUMMARY | 2018-03-25 13:56 | XMS REPORT | Summary of Care ---
:1970 Author Organization [facility] [place] Address [address] [place] [address]- Encounter HQ Adamsr_gadiel(FIN) [phone] Date(s): 10/21/17 - 10/21/17 [facility] [address] [place] [phone]- [place] Discharge Disposition: Home or Self Care Attending Physician: Galina Moreira MD Vital Signs Most recent to oldest [Reference Range]: 1 Height 157.48 cm (10/21/17 9:03 AM) Temperature Oral [96.4-99.1 DegF] 97.3 DegF (10/21/17 9:03 AM) Blood Pressure [90-140/60-90 mmHg] 139/78 mmHg (10/21/17 9:03 AM) Respiratory Rate [14-20 BRMIN] 16 BRMIN (10/21/17 9:03 AM) Peripheral Pulse Rate [60-100 bpm] 65 bpm (10/21/17 9:03 AM) Weight 94.602 kg (10/21/17 9:03 AM) Body Mass Index 38.15 m2 (10/21/17 9:03 AM) Problem List Condition Effective Dates Status Health Status Informant Allergic rhinitis1 03/15/17 Active Backache2 04/02/17 Active Depressive disorder3 03/15/17 Active Hypertensive disorder4 03/15/17 Active Impaired glucose tolerance5 03/15/17 Active Left lateral epicondylitis(Confirmed) Active Liver function tests abnormal6 03/29/17 Active Morbid obesity7 03/15/17 Active 1Data migrated from [employer] on 07/23/2017. Originally documented as Allergic rhinitis (hayfever).2Data migrated from [employer] on 07/23/2017. Originally documented as Back pain, acute.3Data migrated from [employer] on 07/23/2017. Originally documented as Depression NOS.4Data migrated from [employer] on 07/23/2017. Originally documented as Hypertension (High blood pressure).5Data migrated from [employer] on 07/23/2017. Originally documented as Prediabetes.6Data migrated from [employer] on 07/23/2017. Originally documented as Abnormal liver function tests.7Data migrated from [employer] on 07/23/2017. Originally documented as Obesity, morbid (extreme) ( BMI=40 or above). Allergies, Adverse Reactions, Alerts Substance Reaction Severity Status NKDA Active Medications dexamethasone 2 mg, Route: IM, ONCE, Dosing Weight 94.602, kg, Priority: STAT, Start date: 08/26 10:51:00 THREAD SINGER, Stop date: 10/21/17 10:51:00 THREAD SINGER Start Date: 10/21/17 Stop Date: 10/21/17 Status: Completed Results No data available for this section Immunizations Given and Recorded Vaccine Date Status Refusal Reason influenza virus vaccine, inactivated 06/20/17 Recorded Procedures Procedure Date Related Diagnosis Body Site Status 10/21/17 Completed Injection(s); single tendon 10/21/17 Completed origin/insertion Injection(s); single tendon 10/21/17 Completed origin/insertion Wrist Completed Social History Social History Type Response Smoking Status Never smoker; Exposure to Tobacco Smoke None; Cigarette Smoking Last 365 Days No; Reg Smoking Cessation Counseling No entered on: 10/21/17 Assessment and Plan No data available for this section
--- OUTSIDE RECORDS SUMMARY | 2018-03-25 13:56 | XMS REPORT | Summary of Care ---
:1970 Author Organization [facility] [place] Address [address] [place] [address]- Encounter HQ Adamsr_gadiel(FIN) [phone] Date(s): 10/15/17 - 10/16/17 [facility] [place] [address] [place] [address]- [place] Vital Signs No data available for this section Problem List Condition Effective Dates Status Health Status Informant Allergic rhinitis1 03/15/17 Active Backache2 04/02/17 Active Depressive disorder3 03/15/17 Active Hypertensive disorder4 03/15/17 Active Impaired glucose tolerance5 03/15/17 Active Left lateral epicondylitis(Confirmed) Active Liver function tests abnormal6 03/29/17 Active Morbid obesity7 03/15/17 Active 1Data migrated from [employer] on 07/23/2017. Originally documented as Allergic rhinitis (hayfever).2Data migrated from [employer] on 07/23/2017. Originally documented as Back pain, acute.3Data migrated from [employer] on 07/23/2017. Originally documented as Depression NOS.4Data migrated from [employer] on 07/23/2017. Originally documented as Hypertension (High blood pressure).5Data migrated from [employer] on 07/23/2017. Originally documented as Prediabetes.6Data migrated from [employer] on 07/23/2017. Originally documented as Abnormal liver function tests.7Data migrated from [employer] on 07/23/2017. Originally documented as Obesity, morbid (extreme) ( BMI=40 or above). Allergies, Adverse Reactions, Alerts Substance Reaction Severity Status NKDA Active Medications No data available for this section Results No data available for this section Immunizations Given and Recorded Vaccine Date Status Refusal Reason influenza virus vaccine, inactivated 06/20/17 Recorded Procedures Procedure Date Related Diagnosis Body Site Status Wrist Completed Social History Social History Type Response Smoking Status Never smoker; Exposure to Tobacco Smoke None; Cigarette Smoking Last 365 Days No; Reg Smoking Cessation Counseling No entered on: 10/21/17 Assessment and Plan No data available for this section
--- OUTSIDE RECORDS SUMMARY | 2018-03-25 13:56 | XMS REPORT | Summary of Care ---
:1970 Author Organization [facility] [place] Address [address] [place] [address]- Encounter HQ Cristela([facility]) [phone] Date(s): 08/09/17 - 08/09/17 [facility] [phone] [place] [address]- [place] Discharge Disposition: Home or Self Care Attending Physician: Horace Rojas DO Vital Signs Most recent to oldest [Reference Range]: 1 Height 157.48 cm (08/09/17 2:37 PM) Blood Pressure [90-140/60-90 mmHg] 139/86 mmHg (08/09/17 2:37 PM) Respiratory Rate [14-20 BRMIN] 18 BRMIN (08/09/17 2:37 PM) Peripheral Pulse Rate [60-100 bpm] 79 bpm (08/09/17 2:37 PM) Weight 97.091 kg (08/09/17 2:37 PM) Body Mass Index 39.15 m2 (08/09/17 2:37 PM) Problem List No data available for this section Allergies, Adverse Reactions, Alerts Substance Reaction Severity Status NKDA Active Medications Fish Oil PO, 0 Refill(s) Start Date: 08/09/17 Status: Orderedhydrochlorothiazide 25 mg oral tablet 25 mg=1 tab, PO, Daily, # 30 tab, 0 Refill(s) Start Date: 08/09/17 Stop Date: 08/09/17 Status: Discontinuedhydrochlorothiazide 25 mg oral tablet 25 mg=1 tab, PO, Daily, # 90 tab, 1 Refill(s), [id number] Start Date: 08/09/17 Stop Date: 5/30/18 Status: OrderedmetFORMIN 500 mg oral tablet See Instructions, TAKE ONE TABLET BY MOUTH TWICE DAILY FOR BLOOD SUGAR, # 180 tab, 1 Refill(s), Pharmacy: Replaced By [facility] Start Date: 08/09/17 Status: Orderedmontelukast 10 mg oral tablet 10 mg=1 tab, PO, Bedtime, # 90 tab, 1 Refill(s), Pharmacy: Replaced By [facility] Start Date: 08/09/17 Stop Date: 02/05/18 Status: Orderedmontelukast 10 mg oral tablet 10 mg=1 tab, PO, Bedtime, # 30 tab, 0 Refill(s) Start Date: 08/09/17 Stop Date: 08/09/17 Status: DiscontinuedMotrin IB 200 mg oral tablet 400 mg=2 tab, PO, Q4H, PRN Pain, # 120 tab, 0 Refill(s) Start Date: 08/09/17 Stop Date: 08/19/17 Status: OrderedPaxil 10 mg oral tablet 10 mg=1 tab, PO, Daily, # 90 tab, 1 Refill(s), Pharmacy: Replaced By [facility] Start Date: 08/09/17 Stop Date: 02/05/18 Status: OrderedPaxil 10 mg oral tablet 10 mg=1 tab, PO, Daily, # 30 tab, 0 Refill(s) Start Date: 08/09/17 Stop Date: 08/09/17 Status: Discontinued Results No data available for this section Immunizations Given and Recorded Vaccine Date Status Refusal Reason influenza virus vaccine, inactivated 06/20/17 Recorded Procedures No data available for this section Social History Social History Type Response Smoking Status Never smoker; Exposure to Tobacco Smoke None; Cigarette Smoking Last 365 Days No; Reg Smoking Cessation Counseling No Assessment and Plan No data available for this section
--- OUTSIDE RECORDS SUMMARY | 2018-03-25 13:56 | XMS REPORT | Summary of Care ---
:1970 Author Organization [facility] [place] Address [address] [place] [address]- Encounter HQ Encntr_alias(FIN) [id number] Date(s): 08/13/17 - 08/14/17 [facility] [place] [address] [place] [address]- Vital Signs No data available for this section Problem List No data available for this [...]
--- OUTSIDE RECORDS SUMMARY | 2018-03-25 13:56 | XMS REPORT | Summary of Care ---
:1970 Author Organization [facility] [place] Address [address] [place] [address]- Encounter HQ Adamsr_gadiel(FIN) [id number] Date(s): 10/10/17 - 10/10/17 [facility] [place] [address] [place] [address]- [place] Discharge Disposition: Home or Self Care Attending Physician: Galina Moreira MD Vital Signs Most recent to oldest [Reference Range]: 1 Height 159.2 cm (10/10/17 8:30 AM) Temperature Oral [96.4-99.1 DegF] 96.2 DegF *LOW* (10/10/17 8:30 AM) Blood Pressure [90-140/60-90 mmHg] 136/77 mmHg (10/10/17 8:30 AM) Respiratory Rate [14-20 BRMIN] 15 BRMIN (10/10/17 8:30 AM) Peripheral Pulse Rate [60-100 bpm] 68 bpm (10/10/17 8:30 AM) Weight 95.966 kg (10/10/17 8:30 AM) Body Mass Index 37.86 m2 (10/10/17 8:30 AM) Problem List Condition Effective Dates Status Health Status Informant Allergic rhinitis1 03/15/17 Active Backache2 04/02/17 Active Depressive disorder3 03/15/17 Active Hypertensive disorder4 03/15/17 Active Impaired glucose tolerance5 03/15/17 Active Left lateral epicondylitis(Confirmed) Active Liver function tests abnormal6 03/29/17 Active Morbid obesity7 03/15/17 Active 1Data migrated from [employer] on 07/23/2017. Originally documented as Allergic rhinitis (hayfever).2Data migrated from [employer] on 07/23/2017. Originally documented as Back pain, acute.3Data migrated from [employer] on 07/23/2017. Originally documented as Depression NOS.4Data migrated from [employer] on 07/23/2017. Originally documented as Hypertension (High blood pressure).5Data migrated from [employer] on 07/23/2017. Originally documented as Prediabetes.6Data migrated from [employer] on 07/23/2017. Originally documented as Abnormal liver function tests.7Data migrated from [employer] on 07/23/2017. Originally documented as Obesity, morbid (extreme) ( BMI=40 or above). Allergies, Adverse Reactions, Alerts Substance Reaction Severity Status NKDA Active Medications No Known Medications Results No data available for this section [...]
--- OUTSIDE RECORDS SUMMARY | 2018-03-25 13:56 | XMS REPORT | Summary of Care ---
:1970 Author Organization [facility] [place] Address [address] [place] [address]- Encounter HQ Adamsr_gadiel(FIN) [id number] Date(s): 10/10/17 - 10/10/17 [facility] [place] [address] [place] [address]- [place] Discharge Disposition: Home or Self Care [...] Morbid obesity7 03/15/17 Active 1Data migrated from [employer] on 07/23/2017. Originally documented as Allergic rhinitis (hayfever).2Data migrated from [employer] on 07/23/2017. Originally documented as Back pain, acute.3Data migrated from [employer] on 07/23/2017. Originally documented as Depression NOS.4Data migrated from [employer] on 07/23/2017. Originally documented as Hypertension (High blood pressure).5Data migrated from [employer] on 07/23/2017. Originally documented as Prediabetes.6Data migrated from [employer] on 07/23/2017. Originally documented as Abnormal liver function tests.7Data migrated from [employer] on 07/23/2017. Originally documented as Obesity, morbid [...]
[2018-03-25] MEDS ORDERED: CYCLOBENZAPRINE 10 MG TAB ONE (14:34)
[2018-03-25] MEDS ORDERED: HYDROCODONE/APAP 5/325 MG TAB ONE (14:34)
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
== END 2018-03-25 15:47 | disposition home or self-care (01) ==
LOC: ER 13:53
DX: M54.12 Radiculopathy, cervical region (principal); V49.49XA Driver injured in collision with other motor vehicles in traffic accident, initial encounter; I10 Essential (primary) hypertension; E11.9 Type 2 diabetes mellitus without complications
CPT/HCPCS: 70450; 72125; 99284

== ENCOUNTER 2018-12-02 15:20 | Emergency (ER) | payer OTHER ==
--- OUTSIDE RECORDS SUMMARY | 2018-12-02 15:22 | XMS REPORT ---
:1970 Author Organization eClinicalWorks Care Team Providers Name Role Phone Roger Jerod Provider Role Unavailable Allergies, Adverse Reactions, Alerts Substance Reaction Event Type N.K.D.A. Info Not Available Non Drug Allergy Problems Problem Type Condition Code Onset Dates Condition Status Assessment Uncontrolled type 2 diabetes E11.65 Active mellitus with hyperglycemia Assessment Asymptomatic hypertensive urgency I16.0 Active Problem Depression with anxiety F41.8 Active Problem Iron deficiency anemia due to D50.0 Active chronic blood loss Problem Vitamin D deficiency E55.9 Active Problem HTN, goal below 130/80 I10 Active Problem Uncontrolled type 2 diabetes E11.65 Active mellitus with hyperglycemia Problem Patient's noncompliance with dietary Z91.11 Active regimen Problem Asymptomatic hypertensive urgency I16.0 Active Assessment Iron deficiency anemia due to D50.0 Active chronic blood loss Assessment Vitamin D deficiency E55.9 Active Assessment Patient's noncompliance with dietary Z91.11 Active regimen Assessment Depression with anxiety F41.8 Active Assessment Patient's other noncompliance with Z91.14 Active medication regimen Assessment HTN, goal below 130/80 I10 Active Medications Medication Code Code Instructions Start End Status Dosage System Date Date Ferrous Sulfate [facility] [address]-45 325 MG Orally Active as directed Hydrochlorothiazide [facility] 64671236102 25 MG Orally Active 1 tablet Once a day in the morning Paroxetine HCl [facility] 40454575675 10 MG Orally Active 1 tablet Once a day in the morning Vitamin D [facility] 90390755954 1000 UNIT Active 1 tablet Orally Once a day Metformin HCl [facility] 15485085348 500 MG Orally Active 1 tablet Twice a day with a meal Results No Known Results Summary Purpose eClinicalWorks Submission
--- OUTSIDE RECORDS SUMMARY | 2018-12-02 15:22 | XMS REPORT ---
:1970 [facility] [address] [place] [address] [place] [id number] Care Team Providers Name Role Phone Unavailable Unavailable Unavailable Problems This patient has no known problems. Allergies, Adverse Reactions, Alerts This patient has no known allergies or adverse reactions. Medications This patient has no known medications.
--- OUTSIDE RECORDS SUMMARY | 2018-12-02 15:22 | XMS REPORT | Continuity of Care Document ---
:1970 Author Organization Interface Problems Problem Status Onset Classification Date Comments Source Date Reported Backache<sup>2</ Active 04/02/20 Problem 01/27/2018 Data migrated MH sup> 17 from [place] [facility] 07/23/2017. Originally documented as Back pain, acute. Liver function Active 03/29/20 Problem 01/27/2018 Data migrated MH tests 17 from [employer] abnormal<sup>6</ [facility] sup> 07/23/2017. Originally documented as Abnormal liver function tests. Allergic Active 03/15/20 Problem 01/27/2018 Data migrated MH rhinitis<sup>1</ 17 from [employer] sup> [facility] 07/23/2017. Originally documented as Allergic rhinitis (hayfever). Depressive Active 03/15/20 Problem 01/27/2018 Data migrated MH disorder<sup>3</ 17 from [employer] sup> [facility] 07/23/2017. Originally documented as Depression NOS. Hypertensive Active 03/15/20 Problem 01/27/2018 Data migrated MH disorder<sup>4</ 17 from [facility] sup> [facility] 07/23/2017. Originally documented as Hypertension (High blood pressure). Impaired glucose Active 03/15/20 Problem 01/27/2018 Data migrated MH tolerance<sup>5< 17 from [employer] /sup> [facility] 07/23/2017. Originally documented as Prediabetes. Morbid Active 03/15/20 Problem 01/27/2018 Data migrated MH obesity<sup>7</s 17 from [employer] up> [facility] 07/23/2017. Originally documented as Obesity, morbid (extreme) (BMI=40 or above). Left lateral Active Problem 01/27/2018 epicondylitis [facility] Group Medications Medication Details Route Status Patient Ordering Order Source Instructions Provider Date Dexamethasone 2 mg, Inactive Route: IM, 2018 Medical ONCE, Group Dosing Weight 94.602, kg, Priority: STAT, Start date: 10/21/17 10:51:00 [place], Stop date: 10/21/17 10:51:00 [place] Metformin See Active hydrochloride 500 MG In[facility] 2017 Medical Oral Tablet ns, TAKE Group ONE TABLET BY MOUTH TWICE DAILY FOR BLOOD SUGAR, # 180 tab, 1 Refill(s), Pharmacy: [id number] Paroxetine 10 MG Oral 10 mg=1 Active Tablet [Paxil] tab, PO, 2016 Medical Daily, # Group 90 tab, 1 Refill(s), Pharmacy: [facility] montelukast 10 mg 10 mg=1 Active oral tablet tab, PO, 2016 Medical Bedtime, # Group 90 tab, 1 Refill(s), Pharmacy: [facility] Hydrochlorothiazide 25 mg=1 Active 25 MG Oral Tablet tab, PO, 2016 Medical Daily, # Group 90 tab, 1 Refill(s), Pharmacy: [facility] Fish Oil PO, 0 Active Refill(s) 2016 Medical Group Ibuprofen 200 MG Oral 400 mg=2 Active Tablet [Motrin] tab, PO, 2016 Medical Q4H, PRN Group Pain, # 120 tab, 0 Refill(s) Paroxetine 10 MG Oral 10 mg=1 Inactive Tablet [Paxil] tab, PO, 2016 Medical Daily, # Group 30 tab, 0 Refill(s) Hydrochlorothiazide 25 mg=1 Inactive 25 MG Oral Tablet tab, PO, 2016 Medical Daily, # Group 30 tab, 0 Refill(s) montelukast 10 mg 10 mg=1 Inactive oral tablet tab, PO, 2016 Medical Bedtime, # Group 30 tab, 0 Refill(s) Allergies, Adverse Reactions, Alerts Substance Category Reaction Severity Reaction Status Date Comments Source type Reported Immunizations Immunization Date Given Site Status Last Updated Comments Source influenza virus 06/20/2017 completed [facility] vaccine, Group inactivated Results Order Results Value Reference Date Interpretation Comments Source Name Range Elbow 2 Elbow 2 XR LEFT ELBOW 2V [facility] views DX 2018 - [place] DX HISTORY: - Pain above lateral epicondyle. [...] effusion is noted. IMPRESSION: Negative. SL : [id number] Vital Signs Vital Sign Value Date Comments [...] Number For Provider Date Date Visit Outpatient [id number] PAVAN 08/09 [facility] Outpatient [id number] Pavan 08/09 08/10 [facility] Phone [phone] 08/13 08/15 [facility] Outpatient [id number] KATIE 10/10 [facility]2018 [facility] Outpatient [id number] [place] 10/10 10/11 [facility] Phone [phone] 10/15 10/17 [facility] Outpatient [id number] NOOR 10/21 [facility] Outpatient [id number] [place] 10/21 10/22 [facility] Procedures Procedure Code Date Perfomer Comments Source Injection(s); 10/22/2017 Medical single tendon Group origin/insertion 10/21/2017 Medical Group Injection(s); 10/21/2017 Medical single tendon Group origin/insertion Wrist [id number] Medical Group
--- OUTSIDE RECORDS SUMMARY | 2018-12-02 15:23 | XMS REPORT ---
:1970 Author Organization eClinicalWorks Care Team Providers Name Role Phone Holly Duranh Provider Role Unavailable Allergies, Adverse Reactions, Alerts Substance Reaction Event Type N.K.D.A. Info Not Available Non Drug Allergy Problems Problem Type Condition Code Onset Dates Condition Status Problem Iron deficiency anemia due to D50.0 Active chronic blood loss Problem Patient's noncompliance with Z91.11 Active dietary regimen Problem Allergic rhinitis, unspecified J30.9 Active seasonality, unspecified trigger Assessment History of kidney stones Z87.442 Active Problem Asymptomatic hypertensive urgency I16.0 Active Assessment Allergic rhinitis, unspecified J30.9 Active seasonality, unspecified trigger Problem Adult BMI 40.0-44.9 kg/sq m Z68.41 Active Problem Vitamin D deficiency E55.9 Active Problem Depression with anxiety F41.8 Active Problem HTN, goal below 130/80 I10 Active Problem Uncontrolled type 2 diabetes E11.65 Active mellitus with hyperglycemia Assessment Vitamin D deficiency E55.9 Active Assessment Depression with anxiety F41.8 Active Assessment Patient's noncompliance with Z91.11 Active dietary regimen Assessment Iron deficiency anemia due to D50.0 Active chronic blood loss Assessment Adult BMI 40.0-44.9 kg/sq m Z68.41 Active Assessment Need for influenza vaccination Z23 Active Assessment HTN, goal below 130/80 I10 Active Assessment Screening mammogram, encounter for Z12.31 Active Assessment Uncontrolled type 2 diabetes E11.65 Active mellitus with hyperglycemia Assessment Well adult on routine health check Z00.00 Active Medications Medication Code Code Instructions Start End Status Dosage System Date Date Lisinopril [facility] 28266241465 10 MG Orally Nov 05, Active 1 tablet Once a day 2018 Paroxetine HCl [facility] 14727961029 10 MG Orally Active 1 tablet Once a day in the morning Hydrochlorothiazide [facility] 49553826772 25 MG Orally Active 1 tablet Once a day in the morning Ferrous Sulfate [facility] [address]-81 325 MG Orally Active as directed Vitamin D [facility] 44645281105 1000 UNIT Active 1 tablet Orally Once a day Metformin HCl [facility] 38993550314 500 MG Orally Active 1 tablet Twice a day with a meal Results No Known Results Immunizations Vaccine Administration Date Afluria Nov 05, 2018 Summary Purpose eClinicalWorks Submission
--- OUTSIDE RECORDS SUMMARY | 2018-12-02 15:23 | XMS REPORT ---
:1970 Author Organization eClinicalWorks Care Team Providers Name Role Phone Roger [facility] Provider Role Unavailable Allergies No Known Allergies Problems Problem Type Condition Code Onset Dates Condition Status Problem Iron deficiency anemia due to D50.0 Active chronic blood loss Problem Patient's noncompliance with dietary Z91.11 Active regimen Problem Allergic rhinitis, unspecified J30.9 Active seasonality, unspecified trigger Problem Asymptomatic hypertensive urgency I16.0 Active Problem Adult BMI 40.0-44.9 kg/sq m Z68.41 Active Problem Vitamin D deficiency E55.9 Active Problem Depression with anxiety F41.8 Active Problem HTN, goal below 130/80 I10 Active Problem Uncontrolled type 2 diabetes E11.65 Active mellitus with hyperglycemia Medications No Known Medications Results No Known Results Summary Purpose eClinicalWorks Submission
[2018-12-02 16:30] LABS: Urine Blood NEGATIVE (NEG); Urine Glucose NEGATIVE (NEG); Urine Protein NEGATIVE (NEG)
[2018-12-02] MEDS ORDERED: NA CHLORIDE 0.9% 1,000 ML ONE (17:16)
[2018-12-02] MEDS ORDERED: ONDANSETRON 4 MG/2 ML VIAL ONE (17:16)
[2018-12-02] MEDS ORDERED: MORPHINE 4 MG/ML SYR ONE (17:16)
[2018-12-02 17:20] LABS: Absolute Monocytes 0.7 K/uL (0.1-1.3); Absolute Neutrophil 10.4 K/uL (1.8-8.0); Basophils % 0.2 % (0-1.3); Eosinophils % 0.4 % (0-4.4); Hematocrit 39.7 % (36.0-45.0); Lymphocytes % 8.3 % (15.3-44.8); MPV 8.2 fL (7.6-11.3); Monocytes % 5.4 % (3.3-12.3); RBC Red Blood Cell Count 4.61 M/uL (3.86-4.86)
[2018-12-02 17:32] LABS: Urine Bacteria <20 /HPF (<20); Urine RBC <5 /HPF (NONE SEEN)
[2018-12-02 17:33] LABS: Urine Culture Reflex Order NOT NEEDED
[2018-12-02 17:45] LABS: ALT/SGPT 30 U/L (12-78); AST/SGOT 36 U/L (15-37); Albumin 3.8 g/dL (3.4-5.0); Alkaline Phosphatase 108 U/L (45-117); BUN Blood Urea Nitrogen 5 mg/dL (7-18); Bicarbonate 25 mmol/L (21-32); Bilirubin Direct 0.2 mg/dL (0-0.2); Bilirubin Total 0.5 mg/dL (0.2-1.0); Glucose Level 119 mg/dL (74-106); Lipase 77 U/L (73-393); Potassium 3.8 mmol/L (3.5-5.1); Protein, Total 8.6 g/dL (6.4-8.2); Sodium Level 137 mmol/L (136-145)
[2018-12-02 17:51] LABS: Blood Morphology Comment NOT SEEN (NOT SEEN); Platelet Estimate ADEQ; Urine White Blood Cell Casts OK
--- NOTE | 2018-12-02 18:23 | RAD REPORT ---
EXAM DESCRIPTION: CT - Abdomen Pelvis W Contrast - 12/02/2018 6:00 pm CLINICAL HISTORY: Abdominal pain with vomiting COMPARISON: December 2017 TECHNIQUE: Computed axial tomography of the abdomen pelvis was obtained. 100 cc Isovue-300 was admin istered intravenously. Oral contrast was not requested which limits evaluation of bowel. All CT scans are performed using dose optimization technique as appropriate and may include automated exposure control or mA/KV adjustment according to patient size. FINDINGS: The liver, spleen, pancreas, and adrenals appear unremarkable. Small bilateral nonobstructing renal calculi There is no evidence of diverticulitis. The appendix is not well seen. Evaluation is limited secondary to the lack of oral contrast administr ation A 7.2 centimeter low-density mass is present within the uterine fundus. It is unchanged. IMPRESSION: 7.2 centimeter low-density mass within the uterine fundus probably representing a degene rated fibroid. Follow-up ultrasound in 6 months recommended to assess stability. Small bilateral nonobstructing renal calculi
[2018-12-02] MEDS ORDERED: FENTANYL CITR 100 MCG/2 ML ONE (18:53)
[2018-12-02] MEDS ORDERED: KETOROLAC 30 MG/ML INJ ONE (18:54)
--- NOTE | 2018-12-02 20:15 | EDPHYS ---
Physician Documentation [facility] Name: Luz Maria Gonzalez Age: 48 yrs Sex: Female : 1970 Arrival Date: 12/02/2018 Time: 15:21 Bed 25 Private MD: Jerod Duran ED Physician Matt Robbins HPI: 12/02 16:38 This 48 yrs old Female presents to ER via Ambulatory with complaints of jmm Abdominal Pain, Nausea. 16:38 The patient presents with abdominal pain. Onset: The symptoms/episode began/occurred 3 jmm day(s) ago. The symptoms radiate to The symptoms are described as achy. This is a 48 year old female with a history of dm, htn that presents to the ED with complaints of lower abdominal pain, diarrhea and vomiting beginning this past Saturday with chills beginning today. . Patient denies recent travel, denies infectious exposure, denies recent antibiotic use. . 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 - Social history:: Smoking status: Patient/guardian denies using tobacco, Patient uses alcohol. - Ebola Screening: : Patient negative for fever greater than or equal to 101.5 degrees Fahrenheit, and additional compatible Ebola Virus Disease symptoms Patient denies exposure to infectious person Patient denies travel to an Ebola-affected area in the 21 days before illness onset. ROS: 16:38 Constitutional: Positive for body aches, chills. jmm 16:38 Abdomen/GI: Positive for abdominal pain, nausea and vomiting, diarrhea. 16:38 All other systems are negative. Exam: 16:38 Constitutional: This is a well developed, well nourished patient who is awake, alert, jmm and in no acute distress. Head/Face: atraumatic. Eyes: EOMI, no conjunctival erythema appreciated ENT: Moist Mucus Membranes Neck: Trachea midline, Supple Chest/axilla: Normal chest wall appearance and motion. Cardiovascular: Regular rate and rhythm. No edema appreciated Respiratory: Normal respirations, no respiratory distress appreciated 16:38 Abdomen/GI: Inspection: abdomen appears normal, Bowel sounds: normal, Palpation: soft, moderate abdominal tenderness, in the right lower quadrant and left lower quadrant. 16:38 Back: ROM is normal. 16:38 Musculoskeletal/extremity: ROM: intact in all extremities. 16:38 Skin: Appearance: Color: normal in color. 16:38 Neuro: Orientation: is normal, Mentation: is normal, Memory: is normal, Gait: is steady. 16:38 Psych: Behavior/mood is pleasant, cooperative. Vital Signs: 15:26 BP 134 / 87; Pulse 99; Resp 18; Temp 99.7(O); Pulse Ox 98% ; Weight 99.79 kg; Height 5 hj ft. 2 in. (157.48 cm); Pain 10/10; 16:37 BP 137 / 92; Pulse 93; Resp 18; Pulse Ox 97% ; aj1 17:51 BP 106 / 62; Pulse 81; Resp 18; Pulse Ox 100% on R/A; aj1 19:23 BP 125 / 72; Pulse 88; Resp 18; Pulse Ox 99% ; aj1 15:26 Body Mass Index 40.24 (99.79 kg, 157.48 cm) MDM: 16:35 Patient medically screened. [facility] 20:11 Data reviewed: vital signs, nurses notes. Counseling: I had a detailed discussion with denae the patient and/or guardian regarding: the historical points, exam findings, and any diagnostic results supporting the discharge/admit diagnosis, lab results, radiology results, the need for outpatient follow up, to return to the emergency department if symptoms worsen or persist or if there are any questions or concerns that arise at home. Response to treatment: the patient's symptoms have markedly improved after treatment, and as a result, I will discharge patient. ED course: Patient has no mcburney point tenderness. Patient given early appendicitis return precautions. family understood and agrees with the plan of care. . 20:11 ED course: Patient states that she feels much better. CT unable to visualize appendix. [facility] Patient has no mcburney pt tenderness but is given early appendicitis return precautions. patient understood and agrees with the plan of care. . 12/02 15:30 Order name: Urine Microscopic Only; Complete Time: 17:54 12/02 15:43 Order name: Urine Dipstick--Ancillary (enter results); Complete Time: 16:37 12/02 15:44 Order name: Urine --Ancillary (enter results); Complete Time: 16:37 12/02 16:37 Order name: Basic Metabolic Panel; Complete Time: 17:54 [facility] 12/02 16:37 Order name: CBC with Diff; Complete Time: 17:54 [facility] 12/02 16:37 Order name: Creatinine for Radiology; Complete Time: 17:54 [facility] 12/02 16:37 Order name: Hepatic Function; Complete Time: 17:54 [facility] 12/02 16:37 Order name: Lipase; Complete Time: 17:54 [facility] 12/02 16:38 Order name: Flu; Complete Time: 17:54 [facility] 12/02 16:38 Order name: CT Abd/Pelvis - W/Contrast; Complete Time: 18:30 [facility] 12/02 17:25 Order name: CBC Smear Scan; Complete Time: 17:54 [facility] 12/02 15:30 Order name: Urine Dipstick-Ancillary (obtain specimen); Complete Time: 15:47 12/02 15:30 Order name: Urine Test (obtain specimen); Complete Time: 15:47 12/02 16:37 Order name: IV Saline Lock; Complete Time: 17:13 [facility] 12/02 16:37 Order name: Labs collected and sent; Complete Time: 17:13 [facility] Administered Medications: 17:12 Drug: NS 0.9% 1000 ml Route: IV; Rate: 1 bolus; Site: left antecubital; aj1 18:47 Follow up: Response: No adverse reaction; IV Status: Completed infusion mg2 17:12 Drug: morphine 4 mg Route: IVP; Site: left antecubital; aj1 18:47 Follow up: Response: No adverse reaction; Marked relief of symptoms mg2 17:12 Drug: Zofran 4 mg Route: IVP; Site: left antecubital; aj1 18:47 Follow up: Response: No adverse reaction; Marked relief of symptoms mg2 18:46 Drug: Ketorolac 30 mg Route: IVP; Site: left forearm; mg2 20:32 Follow up: Response: No adverse reaction; Pain is decreased aj1 18:46 Drug: fentaNYL (PF) 50 mcg Route: IVP; Site: left forearm; mg2 20:32 Follow up: Response: No adverse reaction; Pain is decreased aj1 Disposition: 12/03 06:56 Co-signature as Attending Physician, Matt Robbins MD I agree with the assessment and wa plan of care. Disposition: 12/02/18 20:14 Discharged to Home. Impression: Abdominal Pain, Vomiting, Diarrhea, Pelvic Pain. - Condition is Stable. - Discharge Instructions: Abdominal Pain, Adult, Food Choices to Help Relieve Diarrhea, Adult, Diarrhea, Adult, Vomiting, Adult. - Prescriptions for Zofran ODT 4 mg Oral tablet,disintegrating - place 1 tablet by TRANSLINGUAL route every 4-6 hours; 20 tablet. Ultracet 37.5- 325 mg Oral Tablet - take 1 tablet by ORAL route every 6 hours - for up to 5 days; do not exceed 8 tablets per day.; 20 tablet. - Work release form, Family Work Release, Medication Reconciliation Form, Thank You Letter, Antibiotic Education, Prescription Opioid Use form. - Follow up: Private Physician; When: 2 - 3 days; Reason: Recheck today's complaints, Continuance of care, Re-evaluation by your physician. Signatures: Dispatcher [employer] EDMS Minerva Lopez RN RN aj1 Abdiel Wheeler PA PA jmm Joaquin, Henry RN VALENTÍN Matt Robbins MD MD wa Gardose, Michele, RN RN mg2 Corrections: (The following items were deleted from the chart) 12/02 20:33 20:14 12/02/2018 20:14 Discharged to Home. Impression: Abdominal Pain; Vomiting; aj1 Diarrhea; Pelvic Pain. Condition is Stable. Forms are Medication Reconciliation Form, Thank You Letter, Antibiotic Education, Prescription Opioid Use. Follow up: Private Physician; When: 2 - 3 days; Reason: Recheck today's complaints, Continuance of care, Re-evaluation by your physician. denae 22:59 22:57 ED course: Patient states that she feels much better. CT unable to visualize denae appendix. Patient has no mcburney pt tenderness but is given early appendicitis return precautions. patient understood and agrees with the plan of care. . denae
--- NOTE | 2018-12-02 20:15 | ER ---
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 Transition of care: patient was not received from another setting of care. Onset of symptoms was December 02, 2018. Risk Assessment: Do you want to hurt yourself or someone else? Patient reports no desire to harm self or others. Initial Sepsis Screen: Does the patient meet any 2 criteria? No. Patient's initial sepsis screen is negative. Does the patient have a suspected source of infection? No. Patient's initial sepsis screen is negative. Care prior to arrival: None. 15:23 Method Of Arrival: Ambulatory 15:23 Acuity: ROLO 3 hj Triage Assessment: 15:25 General: Appears in no apparent distress. uncomfortable, Behavior is calm, cooperative, hj appropriate for age. Pain: Complains of pain in abdomen Pain at worst was 10 out of 10 on a pain scale. GI: Abdomen is non-distended, obese. 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 - Social history:: Smoking status: Patient/guardian denies using tobacco, Patient uses alcohol. - Ebola Screening: : Patient negative for fever greater than or equal to 101.5 degrees Fahrenheit, and additional compatible Ebola Virus Disease symptoms Patient denies exposure to infectious person Patient denies travel to an Ebola-affected area in the 21 days before illness onset. Screenin:26 Abuse screen: Denies threats or abuse. Denies injuries from another. Nutritional hj screening: No deficits noted. Tuberculosis screening: No symptoms or risk factors identified. Fall Risk None identified. Assessment: 15:26 GI: Bowel sounds present X 4 quads. Abd is soft. hj 15:49 General: Appears in no apparent distress. uncomfortable, Behavior is calm, cooperative, aj1 appropriate for age. Pain: Complains of pain in right lower quadrant and left lower quadrant Pain radiates to low back area Pain currently is 9 out of 10 on a pain scale. Neuro: Level of Consciousness is awake, alert, obeys commands. Cardiovascular: Patient's skin is warm and dry. Respiratory: Airway is patent Respiratory effort is even, unlabored, Respiratory pattern is regular, symmetrical. GI: Abdomen is round Bowel sounds present X 4 quads. Abd is soft X 4 quads Abdomen is tender to palpation in right lower quadrant and left lower quadrant Reports lower abdominal pain, diarrhea, nausea, vomiting. : No signs and/or symptoms were reported regarding the genitourinary system. EENT: No signs and/or symptoms were reported regarding the EENT system. Derm: No signs and/or symptoms reported regarding the dermatologic system. Skin is pink, warm \T\ dry. normal. Musculoskeletal: No signs and/or symptoms reported regarding the musculoskeletal system. Circulation, motion, and sensation intact. 16:37 Reassessment: Patient appears in no apparent distress at this time. No changes from aj1 previously documented assessment. Patient and/or family updated on plan of care and expected duration. Pain level reassessed. Patient is alert, oriented x 3, equal unlabored respirations, skin warm/dry/pink. 17:50 Reassessment: Patient appears in no apparent distress at this time. No changes from aj1 previously documented assessment. Patient and/or family updated on plan of care and expected duration. Pain level reassessed. Patient is alert, oriented x 3, equal unlabored respirations, skin warm/dry/pink. Patient taken to CT via wheelchair. 18:45 Reassessment: Patient appears in no apparent distress at this time. No changes from aj1 previously documented assessment. Patient and/or family updated on plan of care and expected duration. Pain level reassessed. Patient is alert, oriented x 3, equal unlabored respirations, skin warm/dry/pink. 19:23 Reassessment: Patient appears in no apparent distress at this time. No changes from aj1 previously documented assessment. Patient and/or family updated on plan of care and expected duration. Pain level reassessed. Patient is alert, oriented x 3, equal unlabored respirations, skin warm/dry/pink. 20:29 Reassessment: Patient appears in no apparent distress at this time. No changes from aj1 previously documented assessment. Patient and/or family updated on plan of care and expected duration. Pain level reassessed. Patient is alert, oriented x 3, equal unlabored respirations, skin warm/dry/pink. Vital Signs: 15:26 BP 134 / 87; Pulse 99; Resp 18; Temp 99.7(O); Pulse Ox 98% ; Weight 99.79 kg; Height 5 hj ft. 2 in. (157.48 cm); Pain 10/10; 16:37 BP 137 / 92; Pulse 93; Resp 18; Pulse Ox 97% ; aj1 17:51 BP 106 / 62; Pulse 81; Resp 18; Pulse Ox 100% on R/A; aj1 19:23 BP 125 / 72; Pulse 88; Resp 18; Pulse Ox 99% ; aj1 15:26 Body Mass Index 40.24 (99.79 kg, 157.48 cm) hj ED Course: 15:21 Patient arrived in ED. as 15:21 Jerod Duran DO is Private Physician. as 15:24 Triage completed. hj 15:26 Arm band placed on left wrist. hj 15:28 Patient has correct armband on for positive identification. Placed in gown. Bed in low hj position. Call light in reach. Side rails up X 1. Adult w/ patient. 15:42 Minerva Lopez, RN is Primary Nurse. aj1 15:49 No provider procedures requiring assistance completed. aj1 16:12 Abdiel Wheeler PA is PHCP. [facility] 16:12 Matt Robbins MD is Attending Physician. [facility] 17:00 Inserted saline lock: 22 gauge in left forearm, using aseptic technique. Blood aj1 collected. 17:33 Radiology exam delayed due to lab results not completed at this time. (BUN/Creatinine). nj 17:[address] nj 17:55 CT completed. Patient tolerated procedure well. Patient moved back from CT. nj 18:01 CT Abd/Pelvis - W/Contrast In Process Unspecified. EDMS 20:30 IV discontinued, intact, bleeding controlled, No redness/swelling at site. Pressure aj1 dressing applied. Administered Medications: 17:12 Drug: NS 0.9% 1000 ml Route: IV; Rate: 1 bolus; Site: left antecubital; aj1 18:47 Follow up: Response: No adverse reaction; IV Status: Completed infusion mg2 17:12 Drug: morphine 4 mg Route: IVP; Site: left antecubital; aj1 18:47 Follow up: Response: No adverse reaction; Marked relief of symptoms mg2 17:12 Drug: Zofran 4 mg Route: IVP; Site: left antecubital; aj1 18:47 Follow up: Response: No adverse reaction; Marked relief of symptoms mg2 18:46 Drug: Ketorolac 30 mg Route: IVP; Site: left forearm; mg2 20:32 Follow up: Response: No adverse reaction; Pain is decreased aj1 18:46 Drug: fentaNYL (PF) 50 mcg Route: IVP; Site: left forearm; mg2 20:32 Follow up: Response: No adverse reaction; Pain is decreased aj1 Outcome: 20:14 Discharge ordered by . denae 20:31 Discharged to home ambulatory. aj1 20:31 Condition: good 20:31 Discharge instructions given to patient, Instructed on discharge instructions, follow up and referral plans. medication usage, Demonstrated understanding of instructions, follow-up care, medications, Prescriptions given X 2. 20:33 Patient left the ED. aj1 Signatures: Dispatcher [employer] EDMinerva Ambriz RN RN aj1 Abdiel Wheeler PA PA jmm Martinez, Amelia as Joaquin, Henry RN RN Yan Green Michele, RN RN mg2 Corrections: (The following items were deleted from the chart) 15:28 15:26 Pulse 99bpm; Resp 18bpm; Pulse Ox 98%; Temp 99.7F Oral; 99.79 kg; Height 5 ft. 2 hj in.; BMI: 40.2; Pain 10/10; hj
== END 2018-12-02 20:33 | disposition home or self-care (01) ==
LOC: ER 15:20
DX: R11.2 Nausea with vomiting, unspecified (principal); R19.7 Diarrhea, unspecified; R10.2 Pelvic and perineal pain; I10 Essential (primary) hypertension; F32.9 Major depressive disorder, single episode, unspecified
CPT/HCPCS: 36415; 74177; 80048; 80076; 81003; 81015; 81025; 83690; 85025; 87804; 99284; J2405; J3010; J7030; Q9967

== ENCOUNTER 2018-12-23 14:55 | Emergency (ER) | payer OTHER ==
--- OUTSIDE RECORDS SUMMARY | 2018-12-23 14:57 | XMS REPORT | Continuity of Care Document ---
:1970 Author Organization Interface Problems Problem Status Onset Classification Date Comments Source Date Reported Backache<sup>2</ Active 04/02/20 Problem 01/27/2018 Data migrated MH sup> 17 from [employer] 07/23/2017. Originally documented as Back pain, acute. Liver function Active 03/29/20 Problem 01/27/2018 Data migrated MH tests 17 from [facility] abnormal<sup>6</ [facility] sup> 07/23/2017. Originally documented as Abnormal liver function tests. Allergic Active 03/15/20 Problem 01/27/2018 Data migrated MH rhinitis<sup>1</ 17 from [facility] sup> [employer] [employer] 07/23/2017. Originally documented as Allergic rhinitis (hayfever). Depressive Active 03/15/20 Problem 01/27/2018 Data migrated MH disorder<sup>3</ 17 from [facility] sup> [facility] [employer] [facility] 07/23/2017. Originally documented as Depression NOS. Hypertensive Active 03/15/20 Problem 01/27/2018 Data migrated MH disorder<sup>4</ 17 from [facility] sup> [facility] [employer] 07/23/2017. Originally documented as Hypertension (High blood pressure). Impaired glucose Active 03/15/20 Problem 01/27/2018 Data migrated MH tolerance<sup>5< 17 from [facility] /sup> [facility] 07/23/2017. Originally documented as Prediabetes. Morbid Active 03/15/20 Problem 01/27/2018 Data migrated MH obesity<sup>7</s 17 from [facility] up> [employer] 07/23/2017. Originally documented as Obesity, morbid (extreme) (BMI=40 or above). Left lateral Active Problem 01/27/2018 epicondylitis Medical Group Medications Medication Details Route Status Patient Ordering Order Source Instructions Provider Date Dexamethasone 2 mg, Inactive Route: IM, 2018 Medical ONCE, Group Dosing Weight 94.602, kg, Priority: STAT, Start date: 10/21/17 10:51:00 BRICK POINTER, Stop date: 10/21/17 10:51:00 BRICK POINTER Metformin See Active hydrochloride 500 MG Instructio 2017 Medical Oral Tablet ns, TAKE Group ONE TABLET BY MOUTH TWICE DAILY FOR BLOOD SUGAR, # 180 tab, 1 Refill(s), Pharmacy: [facility] Paroxetine 10 MG Oral 10 mg=1 Active Tablet [Paxil] tab, PO, 2016 Medical Daily, # Group 90 tab, 1 Refill(s), Pharmacy: [facility] montelukast 10 mg 10 mg=1 Active oral tablet tab, PO, 2016 Medical Bedtime, # Group 90 tab, 1 Refill(s), Pharmacy: [facility] Hydrochlorothiazide 25 mg=1 Active 25 MG Oral Tablet tab, PO, 2016 Medical Daily, # Group 90 tab, 1 Refill(s), Pharmacy: [facility] Fish Oil PO, 0 [...] 2 Elbow 2 XR LEFT ELBOW 2V [facility] views DX 2018 - Edgar DX HISTORY: - Pain above lateral epicondyle. [...] effusion is noted. IMPRESSION: Negative. SL : [id number] Vital Signs Vital Sign Value Date Comments [...] Number For Provider Date Date Visit Outpatient [id number] PAVAN 08/09 [facility] Outpatient [id number] Pavan 08/09 08/10 [facility] Phone [phone] 08/13 08/15 [facility]icians [facility] Outpatient [id number] KATIE 10/10 [facility] Outpatient [id number] [place] 10/10 10/11 [facility] Phone [phone] 10/15 10/17 Physicians [facility] Outpatient [id number] NOOR 10/21 [facility] Outpatient [id number] [place] 10/21 10/22 Physicians [facility] Procedures Procedure Code Date Perfomer Comments Source Injection(s); 10/22/2017 Medical single tendon Group origin/insertion 10/21/2017 Medical Group Injection(s); 10/21/2017 Medical single tendon Group origin/insertion Wrist [id number] Medical Group
--- OUTSIDE RECORDS SUMMARY | 2018-12-23 14:58 | XMS REPORT ---
[...] Status Dosage System Date Date Ferrous Sulfate [facility] [address]-94 325 MG Orally Active as directed Hydrochlorothiazide [facility] 51451099127 25 MG Orally Active 1 tablet Once a day in the morning Paroxetine HCl [facility] 57401879791 10 MG Orally Active 1 tablet Once a day in the morning Vitamin D [facility] 98652688229 1000 UNIT Active 1 tablet Orally Once a day Metformin HCl [facility] 04434054662 500 MG Orally Active 1 tablet Twice a day with a meal Results No Known Results Summary Purpose eClinicalWorks Submission
--- OUTSIDE RECORDS SUMMARY | 2018-12-23 14:58 | XMS REPORT ---
:1970 [facility] [address] [place] [address] [place] [id number] Care Team Providers Name Role Phone Unavailable Unavailable Unavailable Problems This patient has no known problems. Allergies, Adverse Reactions, Alerts This patient has no known allergies or adverse reactions. Medications This patient has no known medications.
--- OUTSIDE RECORDS SUMMARY | 2018-12-23 14:58 | XMS REPORT ---
[...] End Status Dosage System Date Date Lisinopril [facility] 16606671108 10 MG Orally Nov 05, Active 1 tablet Once a day 2018 Paroxetine HCl [facility] 93801402419 10 MG Orally Active 1 tablet Once a day in the morning Hydrochlorothiazide [facility] 20240329441 25 MG Orally Active 1 tablet Once a day in the morning Ferrous Sulfate [facility] [address]-91 325 MG Orally Active as directed Vitamin D [facility] 66351683572 1000 UNIT Active 1 tablet Orally Once a day Metformin HCl [facility] 09519346229 500 MG Orally Active 1 tablet Twice a day with a meal Results No Known Results Immunizations Vaccine Administration Date Afluria Nov 05, 2018 Summary Purpose eClinicalWorks Submission
--- OUTSIDE RECORDS SUMMARY | 2018-12-23 14:58 | XMS REPORT ---
:1970 Author Organization eClinicalWorks Care Team Providers Name Role Phone Jerod Duran Provider Role Unavailable Allergies, Adverse Reactions, Alerts Substance Reaction Event Type N.K.D.A. Info Not Available Non Drug Allergy Problems Problem Type Condition Code Onset Dates Condition Status Problem Iron deficiency anemia due to D50.0 Active chronic blood loss Problem Vitamin D deficiency E55.9 Active Problem Depression with anxiety F41.8 Active Problem Type 2 diabetes mellitus with E11.8 Active complication, without long-term current use of insulin Problem Adult BMI 40.0-44.9 kg/sq m Z68.41 Active Problem Uterine leiomyoma, unspecified D25.9 Active location Problem HTN, goal below 130/80 I10 Active Problem Uncontrolled type 2 diabetes E11.65 Active mellitus with hyperglycemia Problem Allergic rhinitis, unspecified J30.9 Active seasonality, unspecified trigger Problem Asymptomatic hypertensive urgency I16.0 Active Assessment Allergic rhinitis, unspecified J30.9 Active seasonality, unspecified trigger Assessment Uterine leiomyoma, unspecified D25.9 Active location Assessment Type 2 diabetes mellitus with E11.8 Active complication, without long-term current use of insulin Assessment HTN, goal below 130/80 I10 Active Problem Patient's noncompliance with dietary Z91.11 Active regimen Medications Medication Code Code Instructions Start End Status Dosage System Date Date Paroxetine HCl [facility] 56965613085 10 MG Orally Active 1 tablet Once a day in the morning Metformin HCl [facility] 10465491234 1000 MG Orally Active 1 tablet Twice a day with a meal Hydrochlorothiazide [facility] 87965643560 25 MG Orally Active 1 tablet Once a day in the morning Lisinopril [facility] 69675859150 10 MG Orally Active 1 tablet Once a day Ferrous Sulfate [facility] [address]-62 325 MG Orally Active as directed Vitamin D ND 45824931468 1000 UNIT Active 1 tablet Orally Once a day Results Name Result Date Reference Range Unit Abnormality Flag HEMOGLOBIN A1C ----A1C 6.9 [id number] Summary Purpose eClinicalWorks Submission
--- OUTSIDE RECORDS SUMMARY | 2018-12-23 14:58 | XMS REPORT ---
:1970 Author Organization [employer] Care Team Providers Name Role Phone Jerod Duran Provider Role Unavailable Allergies No Known Allergies Problems Problem Type Condition Code Onset Dates Condition Status Problem Iron deficiency anemia due to D50.0 Active chronic blood loss Problem Vitamin D deficiency E55.9 Active Problem Depression with anxiety F41.8 Active Assessment Uncontrolled type 2 diabetes E11.65 Active mellitus with hyperglycemia Problem Patient's noncompliance with dietary Z91.11 Active regimen Problem Type 2 diabetes mellitus with E11.8 Active complication, without long-term current use of insulin Problem Adult BMI 40.0-44.9 kg/sq m Z68.41 Active Problem Uterine leiomyoma, unspecified D25.9 Active location Problem HTN, goal below 130/80 I10 Active Problem Uncontrolled type 2 diabetes E11.65 Active mellitus with hyperglycemia Problem Allergic rhinitis, unspecified J30.9 Active seasonality, unspecified trigger Problem Asymptomatic hypertensive urgency I16.0 Active Medications Medication Code Code Instructions Start End Status Dosage System Date Date Metformin HCl [facility] 89895074711 500 MG Orally Inactive 1 tablet Twice a day with a meal Metformin HCl [facility] 97055365324 1000 MG Orally December Active 1 tablet Twice a day 2018 with a meal Results No Known Results Summary Purpose eClinicalWorks Submission
--- OUTSIDE RECORDS SUMMARY | 2018-12-23 14:58 | XMS REPORT ---
:1970 Author Organization e[employer]Works Care Team Providers Name Role Phone Holly Duranh Provider Role Unavailable Allergies No Known Allergies Problems Problem Type Condition Code Onset Dates Condition Status Problem Patient's noncompliance with dietary Z91.11 Active regimen Problem Depression with anxiety F41.8 Active Problem Iron deficiency anemia due to D50.0 Active chronic blood loss Problem Adult BMI 40.0-44.9 kg/sq m Z68.41 Active Problem Allergic rhinitis, unspecified J30.9 Active seasonality, unspecified trigger Problem Uterine leiomyoma, unspecified D25.9 Active location Problem Uncontrolled type 2 diabetes E11.65 Active mellitus with hyperglycemia Problem Vitamin D deficiency E55.9 Active Problem Asymptomatic hypertensive urgency I16.0 Active Problem HTN, goal below 130/80 I10 Active Medications No Known Medications Results No Known Results Summary Purpose eClinicalWorks Submission
--- OUTSIDE RECORDS SUMMARY | 2018-12-23 14:58 | XMS REPORT ---
:1970 Author Organization eClinicalWorks Care Team Providers Name Role Phone Roger [facility] Provider Role Unavailable Allergies No Known [...]
--- OUTSIDE RECORDS SUMMARY | 2018-12-23 14:58 | XMS REPORT ---
:1970 Author Organization eClinicalWorks Care Team Providers Name Role Phone Carlos Lui Provider Role Unavailable Allergies No Known Allergies Problems Problem Type Condition Code Onset Dates Condition Status Problem Patient's noncompliance with dietary Z91.11 Active regimen Problem Depression with anxiety F41.8 Active Problem Iron deficiency anemia due to D50.0 Active chronic blood loss Assessment Uterine leiomyoma, unspecified D25.9 Active location Problem Adult BMI 40.0-44.9 kg/sq m Z68.41 [...]
--- NOTE | 2018-12-23 16:13 | EDPHYS ---
Physician Documentation [facility] Name: Luz Maria Gonzalez Age: 48 yrs Sex: Female : 1970 Arrival Date: 12/23/2018 Time: 14:57 Bed 27 Private MD: Jerod Duran ED Physician Anthony Levine HPI: 12/23 16:04 This 48 yrs old Female presents to ER via Ambulatory with complaints of gs Infected Toe. 16:04 The patient presents with an abscess of the , The patient presents with cellulitis of gs the left first toe. Description: The affected area is small, confluent, draining, erythematous. Onset: The symptoms/episode began/occurred 5 day(s) ago. Possible cause(s): unknown. Modifying factors: the symptoms are alleviated by nothing, the symptoms are aggravated by squeezing the lesion and expressing the contents, touching. Severity of symptoms: At their worst the symptoms were moderate, in the emergency department the symptoms are unchanged. The patient has not experienced similar symptoms in the past. 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 - Social history:: Smoking status: unknown. - Ebola Screening: : No symptoms or risks identified at this time. ROS: 16:04 Constitutional: Negative for fever. gs 16:04 All other systems are negative. Exam: 16:04 Eyes: Pupils equal round and reactive to light, extra-ocular motions intact. Lids and gs lashes normal. Conjunctiva and sclera are non-icteric and not injected. Cornea within normal limits. Periorbital areas with no swelling, redness, or edema. ENT: Nares patent. No nasal discharge, no septal abnormalities noted. Tympanic membranes are normal and external auditory canals are clear. Oropharynx with no redness, swelling, or masses, exudates, or evidence of obstruction, uvula midline. Mucous membranes moist. Cardiovascular: Regular rate and rhythm with a normal S1 and S2. No gallops, murmurs, or rubs. Normal PMI, no JVD. No pulse deficits. Respiratory: Lungs have equal breath sounds bilaterally, clear to auscultation and percussion. No rales, rhonchi or wheezes noted. No increased work of breathing, no retractions or nasal flaring. Abdomen/GI: Soft, non-tender, with normal bowel sounds. No distension or tympany. No guarding or rebound. No evidence of tenderness throughout. Back: No spinal tenderness. No costovertebral tenderness. Full range of motion. Neuro: Awake and alert, GCS 15, oriented to person, place, time, and situation. Cranial nerves II-XII grossly intact. Motor strength 5/5 in all extremities. Sensory grossly intact. Cerebellar exam normal. Normal gait. 16:04 Constitutional: The patient appears alert, awake. 16:04 Skin: abscess, that is small, of the left first toe, with drainage, cellulitis, that is mild, on the left first toe. Vital Signs: 15:04 BP 156 / 85; Pulse 74; Resp 18; Temp 98.7; Pulse Ox 100% ; Weight 97.52 kg; Height 5 sv ft. 2 in. (157.48 cm); Pain 3/10; 15:04 Body Mass Index 39.32 (97.52 kg, 157.48 cm) sv MDM: 15:56 Patient medically screened. 16:04 Differential diagnosis: abscess, cellulitis. Data reviewed: vital signs, nurses notes. Counseling: I had a detailed discussion with the patient and/or guardian regarding: the historical points, exam findings, and any diagnostic results supporting the discharge/admit diagnosis, the need for further work-up and treatment in the hospital. ED course: cellulitis minimal, mild swelling abscess drained doesn't need further opening. Administered Medications: No medications were administered Disposition: 12/23/18 16:12 Discharged to Home. Impression: Cutaneous abscess of foot. - Condition is Stable. - Discharge Instructions: Skin Abscess. - Prescriptions for Clindamycin HCl 300 mg Oral Capsule - take 1 capsule by ORAL route every 8 hours for 7 days; 21 capsule. Bactroban 2 % Topical Ointment - Apply to affected area 1 application by TOPICAL route every 12 hours; 30 gram. - Medication Reconciliation Form, Thank You Letter, Antibiotic Education, Prescription Opioid Use form. - Follow up: Michael Spencer DPM; When: 2 - 3 days; Reason: Re-evaluation by your physician. Signatures: Kaye Lindquist RN RN Anthony Levine MD MD Gregorio Muro RN RN mg2 Corrections: (The following items were deleted from the chart) 16:28 16:12 12/23/2018 16:12 Discharged to Home. Impression: Cutaneous abscess of foot. mg2 Condition is Stable. Forms are Medication Reconciliation Form, Thank You Letter, Antibiotic Education, Prescription Opioid Use. Follow up: Michael Spencer; When: 2 - 3 days; Reason: Re-evaluation by your physician. gs
--- NOTE | 2018-12-23 16:13 | ER ---
Nurse's Notes [facility] Name: Luz Maria Gonzalez Age: 48 yrs Sex: Female : 1970 Arrival Date: 12/23/2018 Time: 14:57 Bed 27 Private MD: Jerod Duran Diagnosis: Cutaneous abscess of foot Presentation: 12/23 15:03 Presenting complaint: Patient states: "I think my left big toe is infected, it started sv as a little red dot and now its swollen and painful.". Transition of care: patient was not received from another setting of care. Onset of symptoms was December 18, 2018. Care prior to arrival: None. 15:03 Method Of Arrival: Ambulatory sv 15:03 Acuity: ROLO 3 sv 15:51 Risk Assessment: Do you want to hurt yourself or someone else? Patient reports no mg2 desire to harm self or others. Initial Sepsis Screen: Does the patient meet any 2 criteria? No. Patient's initial sepsis screen is negative. Does the patient have a suspected source of infection? No. Patient's initial sepsis screen is negative. Triage Assessment: 15:03 General: Appears in no apparent distress. uncomfortable, Behavior is calm, cooperative, sv appropriate for age. Pain: Complains of pain in left foot Pain currently is 3 out of 10 on a pain scale. Neuro: Level of Consciousness is awake, alert, obeys commands, Oriented to person, place, time, situation, Gait is steady. Respiratory: Respiratory effort is even, unlabored, Respiratory pattern is regular, symmetrical. 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 - Social history:: Smoking status: unknown. - Ebola Screening: : No symptoms or risks identified at this time. Screenin:40 Abuse screen: Denies threats or abuse. Denies injuries from another. Nutritional mg2 screening: No deficits noted. Tuberculosis screening: No symptoms or risk factors identified. Fall Risk None identified. Assessment: 15:49 General: Appears in no apparent distress. comfortable, Behavior is calm, cooperative. mg2 Pain: Complains of pain in left big toe Pain does not radiate. Pain currently is 5 out of 10 on a pain scale. Quality of pain is described as aching, Pain began gradually, 2-3 days ago. Neuro: Level of Consciousness is awake, alert, obeys commands, Oriented to person, place, time, situation. Cardiovascular: Capillary refill < 3 seconds Patient's skin is warm and dry. Respiratory: Airway is patent Respiratory effort is even, unlabored, Respiratory pattern is regular, symmetrical. GI: No signs and/or symptoms were reported involving the gastrointestinal system. : No signs and/or symptoms were reported regarding the genitourinary system. EENT: No signs and/or symptoms were reported regarding the EENT system. Derm: Skin is intact, is healthy with good turgor, Skin is pink, warm \\T\\ dry. normal, Wound noted left big toe Wound is red and tender. Musculoskeletal: Circulation, motion, and sensation intact. Capillary refill < 3 seconds. Vital Signs: 15:04 BP 156 / 85; Pulse 74; Resp 18; Temp 98.7; Pulse Ox 100% ; Weight 97.52 kg; Height 5 sv ft. 2 in. (157.48 cm); Pain 3/10; 15:04 Body Mass Index 39.32 (97.52 kg, 157.48 cm) sv ED Course: 14:57 Patient arrived in ED. mr 14:58 Jerod Duran DO is Private Physician. mr 15:04 Triage completed. sv 15:04 Arm band placed on. sv 15:33 Anthony Levine MD is Attending Physician. gs 15:36 Gregorio Muro, VALENTÍN is Primary Nurse. mg2 15:51 No provider procedures requiring assistance completed. Patient did not have IV access mg2 during this emergency room visit. 15:52 Patient has correct armband on for positive identification. Pulse ox on. NIBP on. Door mg2 closed. 16:10 Michael Spencer DPM is Referral Physician. gs Administered Medications: No medications were administered Outcome: 16:12 Discharge ordered by . gs 16:28 Discharged to home ambulatory, with family. mg2 16:28 Condition: good 16:28 Discharge instructions given to patient, family, Instructed on discharge instructions, follow up and referral plans. medication usage, Demonstrated understanding of instructions, follow-up care, medications, Prescriptions given X 2. 16:28 Patient left the ED. mg2 Signatures: Kaye Lindquist RN RN Brie Mireles mr Anthony Levine MD MD Gregorio Muro RN RN mg2
== END 2018-12-23 16:28 | disposition home or self-care (01) ==
LOC: ER 14:55
DX: L02.612 Cutaneous abscess of left foot (principal); F32.9 Major depressive disorder, single episode, unspecified; E11.9 Type 2 diabetes mellitus without complications; I10 Essential (primary) hypertension; Z79.84 Long term (current) use of oral hypoglycemic drugs
CPT/HCPCS: 99283

== ENCOUNTER 2019-06-12 05:23 | Emergency (ER) | payer OTHER ==
[2019-06-12 05:55] LABS: Urine Appearance TURBID; Urine Bilirubin NEGATIVE (NEG); Urine Blood 3+ (NEG); Urine Color ORANGE; Urine Glucose NEGATIVE (NEG); Urine Protein 2+ (NEG); Urine Urobilinogen 0.2 mg/dL (0.2-1.0); Urine pH 5.5 (5.0-7.0)
[2019-06-12 06:08] LABS: Urine Microscopic Reflex ORDER UMIC
--- NOTE | 2019-06-12 06:14 | EDPHYS ---
Physician Documentation [facility] Name: Luz Maria Gonzalez Age: 49 yrs Sex: Female : 1970 Arrival Date: 06/12/2019 Time: 05:24 Bed 24 Private MD: Jerod Duran ED Physician Darius Del Cid HPI: 06/12 06:04 This 49 yrs old Female presents to ER via Unassigned with complaints of Pain ps1 With Urination, Fever. 06:04 3 days of symptoms associated with dysuria, frequency, and urgency. Subjective fever. ps1 Suprapubic pain. Pain rated as moderate and worse with urination. . 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 - Social history:: Smoking status: Patient/guardian denies using tobacco, Patient uses alcohol, occasionally. Patient/guardian denies using street drugs. - Ebola Screening: : Patient negative for fever greater than or equal to 101.5 degrees Fahrenheit, and additional compatible Ebola Virus Disease symptoms Patient denies exposure to infectious person Patient denies travel to an Ebola-affected area in the 21 days before illness onset. ROS: 06:04 Eyes: Negative for injury, pain, redness, and discharge, ENT: Negative for injury, ps1 pain, and discharge, Cardiovascular: Negative for chest pain, palpitations, and edema, Respiratory: Negative for shortness of breath, cough, wheezing, and pleuritic chest pain, Abdomen/GI: Negative for abdominal pain, nausea, vomiting, diarrhea, and constipation, MS/Extremity: Negative for injury and deformity, Skin: Negative for injury, rash, and discoloration, Neuro: Negative for headache, weakness, numbness, tingling, and seizure. 06:04 Constitutional: Positive for fatigue, fever. 06:04 : Positive for urinary symptoms, urinary frequency, hematuria. Exam: 06:04 Constitutional: This is a well developed, well nourished patient who is awake, alert, ps1 and in no acute distress. Head/Face: Normocephalic, atraumatic. Eyes: Pupils equal round and reactive to light, extra-ocular motions intact. Lids and lashes normal. Conjunctiva and sclera are non-icteric and not injected. Chest/axilla: Normal chest wall appearance and motion. Nontender with no deformity. No lesions are appreciated. Cardiovascular: Regular rate and rhythm. No gallops, murmurs, or rubs. Normal PMI, no JVD. No pulse deficits. Respiratory: Lungs have equal breath sounds bilaterally, clear to auscultation and percussion. No rales, rhonchi or wheezes noted. No increased work of breathing, no retractions or nasal flaring. Abdomen/GI: Soft, non-tender, with normal bowel sounds. No distension or tympany. No guarding or rebound. No evidence of tenderness throughout. MS/ Extremity: Pulses equal, no cyanosis. Neurovascular intact. Full, normal range of motion. Neuro: Awake and alert, GCS 15, oriented to person, place, time, and situation. Cranial nerves II-XII grossly intact. Sensory grossly intact. Vital Signs: 05:55 BP 141 / 82; Pulse 74; Resp 18; Temp 98.0(O); Pulse Ox 99% on R/A; Weight 96.16 kg (R); fc Height 5 ft. 2 in. (157.48 cm) (R); Pain 10/10; 05:55 Body Mass Index 38.77 (96.16 kg, 157.48 cm) fc MDM: 06:04 Data reviewed: vital signs, nurses notes, lab test result(s), and as a result, I will ps1 discharge patient. Counseling: I had a detailed discussion with the patient and/or guardian regarding: the historical points, exam findings, and any diagnostic results supporting the discharge/admit diagnosis, lab results, the need for outpatient follow up, to return to the emergency department if symptoms worsen or persist or if there are any questions or concerns that arise at home. 06:13 Patient medically screened. ps1 06/12 05:45 Order name: Urinalysis ps1 06/12 05:45 Order name: Urine Culture ps1 06/12 05:55 Order name: Urine Dipstick--Ancillary (enter results) ar5 06/12 05:55 Order name: Urine --Ancillary (enter results) ar5 06/12 06:14 Order name: Urine Microscopic Only EDMS Administered Medications: 06:19 Drug: Pyridium 200 mg Route: PO; 06:57 Follow up: Response: No adverse reaction; Marked relief of symptoms 06:19 Drug: KeFLEX 500 mg Route: PO; 06:57 Follow up: Response: No adverse reaction; Marked relief of symptoms fc Disposition: 06/12/19 06:13 Discharged to Home. Impression: Acute cystitis. - Condition is Stable. - Discharge Instructions: Urinary Tract Infection, Adult. - Prescriptions for Keflex 500 mg Oral Capsule - take 1 capsule by ORAL route every 8 hours for 10 days; 30 capsule. Pyridium 200 mg Oral Tablet - take 1 tablet by ORAL route every 8 hours for 3 days; 9 tablet. - Work release form, Family Work Release, Medication Reconciliation Form, Thank You Letter, Antibiotic Education, Prescription Opioid Use form. - Follow up: Jerod Duran DO; When: 48 Hours; Reason: Further diagnostic work-up, Recheck today's complaints, Continuance of care, Re-evaluation by your physician. Follow up: Emergency Department; When: As needed; Reason: Fever > 102 F, Worsening of condition. - Problem is new. - Symptoms are unchanged. Signatures: Dispatcher [facility] EDDC Yudi Rhoades RN RN fc Singer, Phillip, MD MD ps1 Corrections: (The following items were deleted from the chart) 06:58 06:13 06/12/2019 06:13 Discharged to Home. Impression: Acute cystitis. Condition is fc Stable. Forms are Medication Reconciliation Form, Thank You Letter, Antibiotic Education, Prescription Opioid Use. Follow up: Jerod Duran; When: 48 Hours; Reason: Further diagnostic work-up, Recheck today's complaints, Continuance of care, Re-evaluation by your physician. Follow up: Emergency Department; When: As needed; Reason: Fever > 102 F, Worsening of condition. Problem is new. Symptoms are unchanged. ps1
--- NOTE | 2019-06-12 06:14 | ER ---
Nurse's Notes [facility] Name: Luz Maria Gonzalez Age: 49 yrs Sex: Female : 1970 Arrival Date: 06/12/2019 Time: 05:24 Bed 24 Private MD: Jerod Duran Diagnosis: Acute cystitis Presentation: 06/12 05:55 Presenting complaint: Patient states: that for the past 3 days she has been having fc lower pelvic pain and pain with urination along with fever. Pt took Azo with no improvement. Transition of care: patient was not received from another setting of care. Onset of symptoms was June 09, 2019. Risk Assessment: Do you want to hurt yourself or someone else? Patient reports no desire to harm self or others. Initial Sepsis Screen: Does the patient meet any 2 criteria? No. Patient's initial sepsis screen is negative. Does the patient have a suspected source of infection? No. Patient's initial sepsis screen is negative. Care prior to arrival: Medication(s) given: Azo. 05:55 Method Of Arrival: Ambulatory fc 05:55 Acuity: ROLO 4 Triage Assessment: 05:55 General: Appears uncomfortable, obese, Behavior is calm, cooperative, appropriate for age. Pain: Complains of pain in suprapubic area Pain currently is 10 out of 10 on a pain scale. Quality of pain is described as burning, aching, throbbing, Pain began suddenly, Is continuous, Aggravated by urination. EENT: No deficits noted. Neuro: Level of Consciousness is awake, alert, obeys commands, Oriented to person, place, time, situation, Appropriate for age. Cardiovascular: No deficits noted. Respiratory: No deficits noted. GI: No deficits noted. : Reports burning with urination, pain in suprapubic area with urination, urinary frequency. Derm: Skin is pink, warm \T\ dry. Musculoskeletal: Circulation, motion, and sensation intact. Capillary refill < 3 seconds, Range of motion: intact in all extremities. 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 - Social history:: Smoking status: Patient/guardian denies using tobacco, Patient uses alcohol, occasionally. Patient/guardian denies using street drugs. - Ebola Screening: : Patient negative for fever greater than or equal to 101.5 degrees Fahrenheit, and additional compatible Ebola Virus Disease symptoms Patient denies exposure to infectious person Patient denies travel to an Ebola-affected area in the 21 days before illness onset. Screenin:13 Abuse screen: Denies threats or abuse. Nutritional screening: No deficits noted. fc Tuberculosis screening: No symptoms or risk factors identified. Fall Risk None identified. Assessment: 06:00 Reassessment: Dr Del Cid at bedside to see pt. 06:11 Reassessment: No changes from previously documented assessment. Patient is alert, fc oriented x 3, equal unlabored respirations, skin warm/dry/pink. Patient is alert/active/playful, equal unlabored respirations, skin warm/dry/pink. see triage assessment. Vital Signs: 05:55 BP 141 / 82; Pulse 74; Resp 18; Temp 98.0(O); Pulse Ox 99% on R/A; Weight 96.16 kg (R); fc Height 5 ft. 2 in. (157.48 cm) (R); Pain 10/10; 05:55 Body Mass Index 38.77 (96.16 kg, 157.48 cm) ED Course: 05:24 Patient arrived in ED. mr 05:24 Jerod Duran DO is Private Physician. mr 05:45 Darius Del Cid MD is Attending Physician. ps1 05:55 Arm band placed on Patient placed in an exam room, on a stretcher. fc 06:07 Triage completed. fc 06:12 Jerod Duran DO is Referral Physician. ps1 06:13 Patient has correct armband on for positive identification. Bed in low position. Call fc light in reach. 06:13 No provider procedures requiring assistance completed. Patient did not have IV access fc during this emergency room visit. Administered Medications: 06:19 Drug: Pyridium 200 mg Route: PO; 06:57 Follow up: Response: No adverse reaction; Marked relief of symptoms fc 06:19 Drug: KeFLEX 500 mg Route: PO; 06:57 Follow up: Response: No adverse reaction; Marked relief of symptoms fc Outcome: 06:13 Discharge ordered by . ps1 06:57 Discharged to home ambulatory. 06:57 Condition: good 06:57 Discharge instructions given to patient, significant other, Instructed on discharge instructions, follow up and referral plans. medication usage, Demonstrated understanding of instructions, follow-up care, medications, Prescriptions given X 2. 06:58 Patient left the ED. fc Signatures: Brie Mireles Felicia RN RN Darius Del Cid MD MD ps1
[2019-06-12] MEDS ORDERED: CEPHALEXIN 250 MG CAP ONE (06:16)
[2019-06-12] MEDS ORDERED: PHENAZOPYRIDINE 100MG TAB PO ONE (06:16)
[2019-06-12 06:28] LABS: Urine Culture Reflex Order NOT NEEDED
[2019-06-12 06:31] LABS: Urine Bacteria <20 /HPF (<20); Urine RBC >50 /HPF (NONE SEEN)
[2019-06-12 06:41] LABS: Urine Blood 3+ (NEG); Urine Glucose NEGATIVE (NEG); Urine Protein 3+ (NEG); Urine Specific Gravity 1.025 (1.005-1.030); Urine pH 5.5 (5.0-7.0)
[2019-06-12 07:14] VITALS: BP 141/82; TEMP 98; O2SAT 99
== END 2019-06-12 06:58 | disposition home or self-care (01) ==
LOC: ER 05:23
DX: N30.00 Acute cystitis without hematuria (principal); E11.9 Type 2 diabetes mellitus without complications; E78.5 Hyperlipidemia, unspecified
CPT/HCPCS: 81003; 81015; 81025; 87077; 87086; 87088; 87186; 99283

== ENCOUNTER 2020-05-25 09:04 | Emergency (ER) | payer BC, OTHER ==
--- OUTSIDE RECORDS SUMMARY | 2020-05-25 09:07 | XMS REPORT | Continuity of Care Document ---
:1970 Author Organization [facility] t Address [address] [place] [address] Care Team Providers Name Role Phone Austin MARI Primary Care Physician Unavailable Darryl CARR Attending Clinician Austin MARI Attending Clinician Unavailable Payers Payer Name Policy Type Policy Number Effective Date Expiration Date [facility] [id number] 2018 PPO 00:00:00 Problems Condition Condition Condition Status Onset Resolution Last Treating Co mments Source Name Details Category Date Date Treatment Clinician Date Essential Essential Disease Active (primary) (primary) 03-17 Iraj rso hypertensi hypertensi 00:00: n on on 00 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 y y Iron Iron Disease Active MD deficiency deficiency 03-17 An derso anemia anemia 00:00: n 00 Abnormal Abnormal Disease Active MD uterine uterine 03-17 Anderso bleeding bleeding 00:00: n 00 Uterine Uterine Disease Active MD leiomyoma leiomyoma 03-17 Iraj rso 00:00: n 00 Mixed Mixed Disease Active anxiety anxiety 03-17 Anderso and and 00:00: n depressive depressive 00 disorder disorder Uncontroll Uncontroll Problem Active [facility] ed type 2 ed type 2 [facility] - diabetes diabetes Memori a mellitus mellitus l with with Outpati hyperglyce hyperglyce en t [facility] Asymptomat Asymptomat Problem Active [facility] ic [facility] - hypertensi hypertensi Me moria ve urgency ve urgency l [facility] ent Clinics Depression Depression Diagnosis Active [facility] with with [facility] - anxiety anxiety Memoria l [facility] ent [facility] Iron Iron Problem Active [facility] deficiency deficiency Chanda kes - anemia due anemia due Me moria to chronic to chronic l blood loss blood loss Ou tpati ent Clinics Vitamin D Vitamin D Problem Active [facility] deficiency deficiency Chanda kes - Memoria l [facility] ent Clinics HTN, goal HTN, goal Diagnosis Active [facility] below below [facility] - 130/80 130/80 Memoria l [facility] Patient's Patient's Problem Active [facility] noncomplia noncomplia Chanda kes - nce with nce with Memori a dietary dietary l regimen regimen [facility] ent [facility] Allergic Allergic Diagnosis Active [facility] rhinitis, rhinitis, Luke s - unspecifie unspecifie Me moria d d l seasonalit seasonalit Ou tpati y, y, ent unspecifie unspecifie Cl inics d trigger d trigger Adult BMI Adult BMI Problem Active [facility] 40.0-44.9 40.0-44.9 Luke s - kg/sq m kg/sq m Memoria l [facility] ent Clinics Uterine Uterine Problem Active [facility] leiomyoma, leiomyoma, Chanda kes - unspecifie unspecifie Me moria d location d location l [facility] ent Clinics Type 2 Type [address] [facility] diabetes diabetes [facility] - mellitus mellitus Memori a with with l complicati complicati Ou tpati on, on, ent without without Clinics long-term long-term current current use of use of insulin insulin Preoperati Preoperati Problem Active [facility] ve ve [facility] - examinatio examinatio Me moria n n l [facility] ent Clinics Mixed Mixed Problem Active [facility] hyperlipid hyperlipid Chanda kes - emia emia Memoria l [facility] ent Clinics Abnormal Abnormal Problem Active [facility] t uterine uterine [facility] - bleeding bleeding Memori a (AUB) (AUB) l [facility] ent Clinics Body mass Body mass Problem Active [facility] index index [facility] - (BMI) of (BMI) of Memori a 39.0-39.9 39.0-39.9 l in adult in adult Outpat i ent Clinics Morbid Morbid Problem Active [facility] (severe) (severe) Lukes - obesity obesity Memoria due to due to l excess excess Outpati calories calories ent Clinics Status Status Problem Active [facility] - hysterecto hysterecto Me moria my my l Outpati ent Clinics Noncomplia Noncomplia Diagnosis Active [facility] nce nce [facility] - w/medicati w/medicati Me moria on on l treatment treatment Outp ati due to due to ent intermit intermit Clinic s use of use of medication medication Allergies, Adverse Reactions, Alerts This patient has no known allergies or adverse reactions. Family History Family Member Diagnosis Comments Start Date Stop Date Source Paternal grandfather Prostate cancer MD Mattson Social History Social Habit Start Date Stop Date Quantity Comments Source Sex Assigned At MD Guzman on Tobacco use and 2019-05-15 2019-05-15 Never used MD Guzman on exposure 00:00:00 00:00:00 Alcohol intake 2019-05-15 2019-05-15 Current drinker MD Francy fink 00:00:00 00:00:00 of alcohol (finding) Smoking Status Start Date Stop Date Source Never smoker MD Mattson Medications Ordered Filled Start Stop Current Ordering Indication Dosage Frequency Signature Comments Components Source Medication Medication Date Date Medication? Clinician (SIG) Name Name Janumet XR Janumet XR Yes Jerod [address] [facility] 7-14 Duran with [facility]ukes - 00:00: evening Memoria 00 meal l Outpati ent Clinics Lipitor Lipitor Yes Jerod [address] 9-24 Duran [facility] - 00:00: Memoria 00 l Outpati ent Clinics hydroCHLORO 2018- Yes 25mg Take 25 mg MD thiazide 9-06 by mouth Anderso (HYDRODIURI 13:16: daily. n L) 25 mg 18 tablet cholecalcif 2018- Yes 1{tbl} Take 1 MD margie, 9-06 tablet by Anderso vitamin D3, 13:16: mouth n (VITAMIN D3 18 daily. ORAL) ferrous 2018- Yes 1{tbl} Take 1 MD sulfate 9-06 tablet by Anderso (IRON ORAL) 13:16: mouth n 18 daily. multivitami 2019- Yes 1{tbl} Take 1 MD n 9-06 tablet by Anderso (multivitam 13:16: mouth n in) tablet 18 daily. ibuprofen Yes Uterine 600mg Take 1 MD (ADVIL,MOTR 7-25 leiomyoma tablet A nderso IN) 600 mg 00:00: (600 mg) n tablet 00 by mouth every 6 (six) hours as needed for moderate pain. PARoxetine Yes 1{tbl} Take 1 MD (PAXIL) 10 6-19 tablet by Iraj rso mg tablet 00:00: mouth n 00 daily. JARDIANCE Yes 1{tbl} Take 1 MD 10 mg tab 5-31 tablet by Norbert so 00:00: mouth n 00 daily. metFORMIN Yes 1{tbl} Take 1 MD (GLUCOPHAGE 4-23 tablet by And erso ) 1000 mg 00:00: mouth n tablet 00 twice daily. Paroxetine Paroxetine Yes Jerod [address] [facility] HCl HCl Duran in the [facility]ukes - morning [facility] Hydrochloro Hydrochloro Yes Jerod [address] [facility] thiazide thiazide Duran in the Luke s - morning [facility] Vitamin D Vitamin D Yes Jerod [address] [facility] Lisinopril Lisinopril Yes Jerod TAKE [address] [facility] Duran TABLET BY Lukes - MOUTH ONCE Memoria DAILY [facility] [address] [facility] Metformin Metformin Yes Jerod [address] [facility] HCl HCl Duran with a Lukes - meal [facility] Ferrous Ferrous Yes Jerod as [facility] Sulfate Sulfate Duran directed [place] - [facility] Jardiance Jardiance 2019- No Jerod [address] [facility] 03-22 Duran [facility] - 00:00 Memoria :00 [facility] [address] Immunizations Ordered Filled Immunization Date Status Comments [facility] e Immunization Name Name Afluria single dose Afluria single dose 2019-06-[address] [facility] - 00:00:00 [facility] Afluria Afluria 2018-11-[address] [facility] - 00:00:00 [facility] Procedures This patient has no known procedures. Encounters Start End Encounter Admission Attending Care Care Encounter Source Date/Time Date/Time Type Type Clinicians Facility Department ID 2020-03-22 2020-03-22 [facility] [id number] [facility] 08:00:00 08:00:00 [facility] Medicine Medicine [facility] 2020-03-08 2020-03-08 Telephone Andrews, [facility] [id number] 00:00:00 00:00:00 Serge Molina [id number] [place] [id number] [place] [id number] 2020-01-19 2020-01-19 [facility] [id number] 13:45:00 13:45:00 [facility] [place] [facility] - Drive [facility] Family Medicine l Medicine Outpati ent Clinics 2019-09-14 2019-09-14 [facility] [id number] 14:15:00 14:15:[address] Luke [facility] - Drive [facility] Medicine l Medicine Outpati ent Clinics 2019-08-17 2019-08-17 [facility] [id number] 16:50:00 16:50:00 [facility] [place] [facility] - Drive [facility] Medicine l Medicine Outpati ent Clinics 2019-06-02 2019-06-02 [facility] [id number] 08:45:00 08:45:[address] [facility] - Drive [facility] Family Medicine l Medicine Outpati ent Clinics 2019-04-10 2019-04-10 [facility] [id number] 12:23:00 12:23:[address] [facility] - Drive [facility] Medicine l Medicine Outpati ent Clinics 2019-04-02 2019-04-02 Outpatient [facility] [id number] [facility] 05:39:00 05:39:00 2019-03-31 2019-03-31 [facility] [id number] 11:59:00 11:59:00 t [place] [facility] - Drive [facility] Medicine Outpati ent Clinics 2019-03-31 2019-03-31 [facility] [id number] 11:55:00 11:55:00 t [place] [facility] [employer] It s - Drive [facility] l Medicine Outpati ent Clinics 2019-03-18 2019-03-18 Outpatient LATOSHA MARI MDA MDA [id number] MD 10:03:12 10:03:12 SASKIA vanegas 2019-02-19 2019-02-19 [facility] [id number] 08:14:00 08:14:00 [facility] Outpati ent Clinics 2019-02-17 2019-02-17 [facility] [id number] 09:45:00 09:45:00 t [facility] es - Care Clinic [facility] Outpati ent Clinics 2019-01-05 2019-01-05 [facility] [id number] 16:38:00 16:38:00 t [place] [facility] [employer] It s - Drive [facility] Medicine l Medicine Outpati ent Clinics 2019-01-01 2019-01-01 [facility] [id number] 09:48:00 09:48:00 t [facility] - Care Clinic [facility] Outpati ent Clinics 2018-12-31 2018-12-31 [facility] [id number] 16:40:00 16:40:00 t [place] [facility] [employer] [employer] It s - Drive [facility] Medicine Medicine Outpati ent Clinics 2018-12-30 2018-12-30 [facility] [id number] 11:15:00 11:15:00 t Women [facility]ens [facility] L es - Care Clinic [facility] Outpati ent Clinics 2018-12-12 2018-12-12 [facility] [id number] 15:33:00 15:33:00 t [place] [facility] [employer] It s - Drive [facility] Medicine Medicine Outpati ent Clinics 2018-12-12 2018-12-12 [facility] [id number] 12:57:00 12:57:00 t [place] [facility] [employer] It s - Drive [facility] Medicine l Medicine Outpati ent Clinics 2018-12-12 2018-12-12 [facility] [id number] 08:15:00 08:15:00 t [place] [employer] [employer] It s - Drive [facility] Medicine Medicine Outpati ent Clinics 2018-12-04 2018-12-04 [facility] [id number] 11:46:00 11:46:00 t [place] [employer] [employer] s - [facility] 2018-12-03 2018-12-03 [facility] [id number] 11:55:00 11:55:00 [facility] 2018-11-05 2018-11-05 [facility] [id number] 15:59:00 15:59:00 t [place] [facility] Clinics 2018-11-05 2018-11-05 [facility] [id number] 10:00:00 10:00:00 t [place] [facility] Clin[facility] 2018-08-26 2018-08-26 [facility] [id number] 09:15:00 09:15:00 t [place] [facility] ent Clinics Results This patient has no known results.
--- OUTSIDE RECORDS SUMMARY | 2020-05-25 09:07 | XMS REPORT | Summary of Care ---
:1970 Author Organization [facility] Address [address] [place] [address] Care Team Providers Name Role Phone Wayne Duran Primary Care Provider Reason for Visit Reason Comments Lab Results Encounter Details Date Type Department Care Team Description 03/08/2020 Telephone [facility] Phlebotomy Carolee Andrews PA-C Lab Results Lab-[address] [place] [phone] Allergies No Known Allergiesdocumented as of this encounter (statuses as of 03/08/2020) Medications Medication Sig Dispensed Refills Start Date End Date Status metFORMIN 1,000 mg tablet Take 1,000 mg 0 Active by mouth 2 (two) times daily with meals. hydroCHLOROthiazide 25 mg Take 25 mg by 0 Active tablet mouth daily. sulfamethoxazole-trimethopr Take 1 tablet 20 tablet 0 01/24/20 19 Active im 800-160 mg per by mouth tabletIndications: Skin every 12 infection, bacterial (twelve) hours. atorvastatin 10 mg tablet TAKE 1 TABLET 0 03/01/2020 Active BY MOUTH ONCE DAILY FOR 30 DAYS empagliflozin (JARDIANCE) Take 1 tablet 0 02/06/2019 Active 10 mg Tab by mouth. lisinopril 10 mg tablet TAKE 1 TABLET 0 03/01/2020 Active BY MOUTH ONCE DAILY FOR 30 DAYS PARoxetine 10 mg tablet Take 1 tablet 0 02/25/2019 Active by mouth. cholecalciferol, vitamin Take 1 tablet 0 Active D3, 25 mcg (1,000 unit) by mouth. tablet documented as of this encounter (statuses as of 03/08/2020) Active Problems No known active problemsdocumented as of this encounter (statuses as of 03/08/2020) Social History Tobacco Use Types Packs/Day Years Used Date Never Assessed Sex Assigned at Date Recorded Not on file Job Start Date Occupation Industry Not on file Not on file Not on file Travel History Travel Start Travel End No recent travel history available. documented as of this encounter Last Filed Vital Signs Not on filedocumented in this encounter Plan of Treatment Health Maintenance Due Date Last Done Comments DTaP,Tdap,and Td Vaccines (1 - 1982 Tdap) Depression Screening 1983 PAP SMEAR 02/27/1992 Breast Cancer Screening 2011 (MAMMOGRAM) INFLUENZA VACCINE (Season Ended) 2020 PNEUMOCOCCAL 0-64 YEARS COMBINED Aged Out No longer eligible based on SERIES patient's age to complete this topic documented as of this encounter Results Not on filedocumented in this encounter Insurance Payer Benefit Plan Subscriber ID Effective Dates Phone Address Type / Group [employer] [place] [id number] 2020-Presen [phone] [address] [place] t [id number] [place] [address] documented as of this encounter
--- OUTSIDE RECORDS SUMMARY | 2020-05-25 09:07 | XMS REPORT | Summary of Care ---
:1970 Author Organization [facility] Address [address] [place] [address] Care Team Providers Name Role Phone Wayne Duran Primary Care Provider Reason for Visit Reason Comments Lab Results Encounter Details Date Type Department Care Team Description 03/08/2020 Telephone [facility] Phlebotomy Carolee Andrews PA-C Lab Results Lab-[address] [place] [id number] [phone] Allergies No Known Allergiesdocumented as of this [...] Type / Group [employer] [employer] [place] [id number] 2020-Presen [phone] [address] PPO/[place] t 7 [id number] [place] [address] documented as of this encounter
--- OUTSIDE RECORDS SUMMARY | 2020-05-25 09:07 | XMS REPORT | Summary of Care ---
:1970 Author Organization [facility] Address [address] [place] [id number] Care Team Providers Name Role Phone Wayne Duran Primary Care Provider Reason for Visit Reason Comments STOMACH ACHE Exposure Encounter Details Date Type Department Care Team Description 03/07/2020 Urgent Care [facility] Carolina Cline, DATA ANALYTICS ANALYST [address] [place], [place] [id number] Viral upper respiratory tract infection (Primary Dx); Medicine - [facility] Suspected Covid-19 Virus Infection [address] [place] [address] Allergies No Known Allergiesdocumented as of this encounter (statuses as of 03/07/2020) Medications Medication Sig Dispensed Refills Start Date [...] as of this encounter (statuses as of 03/07/2020) Active Problems No known active problemsdocumented as of this encounter (statuses as of 03/07/2020) Social History Tobacco Use Types Packs/Day Years Used Date Never Assessed Sex Assigned at Date Recorded Not on file Job Start Date Occupation Industry Not on file Not on file Not on file Travel History Travel Start Travel End No recent travel history available. documented as of this encounter Last Filed Vital Signs Vital Sign Reading Time Taken Comments Blood Pressure 133/86 03/07/2020 8:32 AM CDT Pulse 74 03/07/2020 8:32 AM CDT Temperature 36.4 C (97.6 F) 03/07/2020 8:32 AM CDT Respiratory Rate 18 03/07/2020 8:32 AM CDT Oxygen Saturation 98% 03/07/2020 8:32 AM CDT Inhaled Oxygen Concentration - - Weight 96.6 kg (213 lb) 03/07/2020 8:32 AM CDT Height - - Body Mass Index 38.96 01/23/2019 12:24 PM CDT documented in this encounter Patient Instructions Patient InstructionsSerge Andrews PA-C - 03/07/2020 8:40 AM CDT Patient Education Viral Upper Respiratory Illness (Adult) You have a viral upper respiratory illness (URI), which is another term for the common cold. This illness is contagious during the first few days. It is spread through the air by coughing and sneezing.It may also be spread by direct contact (touching the sick person and then touching your own eyes, nose, or mouth). Frequent handwashing will decrease risk of spread. Most viral illnesses go away within 7 to 10 days with rest and simple home remedies. Sometimes the illness may last for several weeks. Antibiotics will not kill a virus, and they are generally not prescribed for this condition. Home care If symptoms are severe, rest at home for the first 2 to 3 days. When you resume activity, don't let yourself get too tired. Don't smoke. If you need help stopping, talk with your healthcare provider. Avoid being exposed to cigarette smoke (yours or others). You may use acetaminophen or ibuprofen to control pain and fever, unless another medicine was prescribed.If you have chronic liver or kidney disease, have ever had a stomach ulcer or gastrointestinal bleeding, or are taking blood- thinning medicines, talk with your healthcare provider before usingthese medicines. Aspirin should never be given to anyone under 18 years of age who is ill with a viral infection or fever. It may cause severe liver or brain damage. Your appetite may be poor, so a light diet is fine. Stay well hydrated by drinking 6 to 8 glassesof fluids per day (water, soft drinks, juices, tea, or soup). Extra fluids will help loosen secretions in the nose and lungs. Sbcs-act-rfixvis cold medicines will not shorten the length of time youre sick, but they may be helpful for the following symptoms: cough, sore throat, and nasal and sinus congestion. If you takeprescription medicines, ask your healthcare provider or pharmacist which upki-rnq-monnbdu medicines are safe to use. (Note: Don't use decongestants if you have high blood pressure.) Follow-up care Follow up with your healthcare provider, or as advised. When to seek medical advice Call your healthcare provider right away if any of these occur: Cough with lots of colored sputum (mucus) Severe headache; face, neck, or ear pain Difficultyswallowingdue to throat pain Fever of 100.4F (38C) or higher, or as directed by your healthcare provider Call 911 Call 911 if any of these occur: Chest pain, shortness of breath, wheezing, or difficulty breathing Coughing up blood Very severe pain with swallowing, especially if it goes along with a muffled voice [employer] last reviewed this educational content on 02/07/201819999669-5136 [employer]. [address] [place] [address]. All rights reserved. This information is not intended as a substitute for professional medical care. Always follow your healthcare professional's instructions. Patient Education Understanding Coronavirus Disease 2019 (COVID-19) Coronavirus disease 2019 (COVID-19) is a respiratory illness. It's caused by a new (novel) coronavirus called SARS-CoV-2. There are many types of coronavirus. Coronaviruses are a very common cause of bronchitis. They may sometimes cause lung infection (pneumonia). Symptoms can range from mild to severe respiratory illness. These viruses are also found in some animals. COVID-19 was first found in people in [facility], in late 2019.COVID-19 is a rapidly-emerging infectious disease. This means thatscientists are actively researching it.There are information updates regularly. Public health officials are working to find the source. How the virus spreads is not yet fully understood, but it seems to spread and infect people fairly easily. Some people who have been infected in an area may be unsure how or where they became infected. The virus may be spread through droplets of fluid that a person coughs or sneezes into the air. It may be spread if you touch a surface with virus on it, such as a handle or object, and then touch your eyes, nose, or mouth. For the latest information, visit the CDC website at www.cdc.gov/coronavirus/2019-ncov. Or call 698-ROI-DIYP (765-389-5162). What are the symptoms of COVID-19? Some people have no symptoms or mild symptoms. Symptoms may appear 2 to 14 days after contact with the virus. Symptoms can include: Fever Coughing Trouble breathing What are possible complications from COVID-19? In many cases, this virus can cause infection (pneumonia) in both lungs. In some cases, this can cause . Certain people are at higher risk for complications. This includes older adults and people with serious chronic health conditions such as heart or lung disease or diabetes. How is COVID-19 diagnosed? Your healthcare provider will ask about your symptoms. He or she will also ask about your recent travel and contact with sick people. If your healthcare provider thinks you may have COVID-19, he or shewill work closely with your local health department on testing. Follow all instructions from your healthcare provider. COVID-19 is diagnosed by: Nose and throat swab. A cotton-tipped swab is wiped inside your nose or throat. This is done to check for viruses in your nasal mucus. Sputum culture. A small sample of mucus coughed from your lungs (sputum) is collected if you havea cough. It's checked for the virus. How is COVID-19 treated? There is currently no medicine to treat the virus. Treatment is done to help your body while it fights the virus. This is known as supportive care. Supportive care may include: Getting rest. This helps your body fight the illness. Staying hydrated. Drink 6 to 8 glasses of liquids every day. Good choices are water, sport drinks, soft drinks without caffeine, juices, tea, and soup. Taking pain medicine. These may include acetaminophen and ibuprofen. They are used to help ease pain and reduce fever. Follow your healthcare provider's instructions. For severe illness, you may need to stay in the hospital. Care during severe illness may include: IV (intravenous) fluids. These are given through a vein to help keep your body hydrated. Oxygen. Supplemental oxygen or ventilation with a breathing machine (ventilator) may be given. This is done so you get enough oxygen in your body. Are you at risk for COVID-19? You are at risk for infection if youve been to a place where people have been sick with this virus or if there are people with COVID-19 in your area. You are at risk if you: Recently traveled to an area with a COVID-19 outbreak Had contact with a sick person who recently traveled to an area with a COVID- 19 outbreak Had contact with a person who was diagnosed with or who may have COVID-19 How can COVID-19 be prevented? There is no vaccine yet. The best prevention is to not have contact with the virus. The CDC advises that people should not travel to areas where there are COVID-19 outbreaks right now for any reason that is not urgent. For the most current CDC travel advisories, visit the CDC website at www.cdc.gov/cor onavirus/2019-ncov/travelers. To help prevent spreading the infection, wash your hands often, or use an alcohol-based hand compliance representative dealer. The CDC advises that you should not wear a facemask if you are not sick. Prepare and protect yourself from COVID-19: Wash your hands often with soap and clean, running water for at least 20 seconds. If you don't have access to soap and water, use an alcohol-based hand compliance representative dealer often. Make sure it has at least 60% alcohol. Don't touch your eyes, nose, or mouth unless you have clean hands. As much as possible, don't touch "high-touch" public surfaces such as doorknobs. Don't shake hands. Clean home and work surfaces often with disinfectant. Cough or sneeze into a tissue, then throw the tissue into the trash. If you don't have tissues, cough or sneeze into the bend of your elbow. Stay informed about COVID-19 in your area. Follow local instructions about being in public. Be aware of events in your community that may be postponed or canceled such as school and sporting events.You may be advised not to attend public gatherings. You will be advised to stay about 6 feet from others as much as possible. This is called "social distancing." The [facility] advises wearing a cloth face mask in public. During a public health emergency, medical face masks may be reserved for healthcare workers. You may need to make a cloth face mask of your own. You can do this using a bandana, T- shirt, or other cloth. The [facility] hasinstructions on how to make a mask. Check your home supplies. Consider keeping a 2-week supply of medicines, food, and other needed household items. Make a plan for childcare, work, and ways to stay in touch with others. Know who will help you ifyou get sick. Don't be around people who are sick. There is no evidence right now that animals spread SARS-CoV-2. But it's always a good idea to wash your hands after touching any animals. Don't touch animals that may be sick. Dont share eating or drinking utensils with sick people. Dont kiss someone who is sick. If you were in an area with COVID-19 in the last 14 days: Call your healthcare provider and follow all instructions. Your activities and where you go may be restricted for up to 2 weeks. You may be directed to stay home, or "self-quarantine." Take your temperature every morning and evening for at least 14 days. This is to check for fever.Keep a record of the readings. Watch for symptoms of the virus. Call your provider if you have symptoms. Call your provider first before going to any clinic or hospital. Stay home if you are sick for any reason. If you are sick with COVID-19 symptoms: Stay home. Call your healthcare provider and tell them you have symptoms of COVID-19. Do this before going to any hospital or clinic. Follow your provider's instructions. You may be advised to isolate yourself at home. This is called self-isolation . Dont panic. Keep in mind that other illnesses can cause similar symptoms. Stay away from work, school, and public places. Limit physical contact with family members. Limitvisitors. Don't kiss anyone or share eating or drinking utensils. Clean surfaces you touch with disinfectant. This is to help prevent the virus from spreading. Cough or sneeze into a tissue, then throw away the tissue in the trash. If you don't have tissues, cough or sneeze into the bend of your elbow. Wear a facemask only if you have symptoms If you need to go in to a hospital or clinic, expect that the healthcare staff will wear protective equipment such as masks, gowns, gloves, and eye protection. You may be put in a separate room. This is to prevent the possible virus from spreading. Tell the healthcare staff about recent travel. This includes local travel on public transport. Staff may need to find other people you have been in contact with. Follow all instructions the healthcare staff give you. If you have been diagnosed with COVID-19 Stay home. Dont leave your home unless you need to get medical care. Don't go to work, school,or public areas. Don't use public transportation or taxis. Follow all instructions from your healthcare provider. Call your healthcare providers office before going. They can prepare and give you instructions. This will help prevent the virus from spreading. If you need to go to a hospital or clinic, expect that the healthcare staff will wear protective equipment such as masks, gowns, gloves, and eye protection. You may be put in a separate room. This is to prevent the possible virus from spreading. Wear a face mask. This is to protect other people from your germs. If you are not able to wear a mask, your caregivers should. Stay away from other people in your home. Limit contact with pets and animals. Although there are no reports of pets getting sick with COVID-19, consider limiting contact with pets until more is known. Dont share household items or food. Cover your face with a tissue when you cough or sneeze. Throw the tissue away. Then wash your hands. Wash your hands often. If you are caring for a sick person: Follow all instructions from healthcare staff. Wash your hands often. Wear protective clothing as advised. Make sure the sick person wears a mask. If they can't wear a mask, don't stay in the same room with the person. If you must be in the same room, wear a facemask. Keep track of the sick persons symptoms. Clean surfaces, fabrics, and laundry thoroughly. Keep other people and pets away from the sick person. When to call your healthcare provider Call your healthcare provider right away: If youve recently traveled or have been in an area with COVID-19 and have symptoms If you have been diagnosed with COVID-19 and your symptoms are worse Date last modified: 12/14/2019 Narciso guevara reviewed this educational content on 09/09/201919993971-3515 [employer]. [address] [place], [place] [id number]. All rights reserved. This information is not intended as a substitute for professional medical care. Always follow your healthcare professional's instructions. documented in this encounter Progress Notes Serge Andrews PA-C - 03/07/2020 8:40 AM CDT COVID-19 Screening Clinic: [facility] Patient Name: Luz Maria Gonzalez Date of : 1970 50 year old Primary Care Physician: Jerod Duran During this visit: Full PPE was used, mask, face shield, gown, and gloves Chief Complaint Chief Complaint Patient presents with STOMACH ACHE Exposure HPI C/o nausea, diarrhea 4 days ago, resolved. Uri symptoms since, mild cough, congestion. Here for covid test. Past Medical History / Immunizations Past Medical History: Diagnosis Date Diabetes HTN (hypertension) Past Surgical History No past surgical history on file. Allergies No Known Allergies Review of Systems Review of Systems Constitutional: Negative for chills and fever. HENT: Negative for ear pain and sore throat. Eyes: Negative for discharge. Gastrointestinal: Positive for diarrhea and nausea. Negative for abdominal pain and vomiting. Skin: Negative for pallor and rash. Neurological: Negative for dizziness and headaches. Physical Exam BP 133/86 | Pulse 74 | Temp 36.4 C (97.6 F) (Oral) | Resp 18 | Wt 213 lb (96.6 kg) | SpO2 98% | BMI 38.96 kg/m Physical Exam Constitutional: She appears well-developed and well-nourished. HENT: Head: Normocephalic. Right Ear: Tympanic membrane and ear canal normal. Left Ear: Tympanic membrane and ear canal normal. Nose: Nose normal. Mouth/Throat: Uvula is midline, oropharynx is clear and moist and mucous membranes are normal. No oropharyngeal exudate, posterior oropharyngeal edema or posterior oropharyngeal erythema. Neck: Neck supple. Cardiovascular: Normal rate and regular rhythm. Pulmonary/Chest: Effort normal and breath sounds normal. No respiratory distress. She has no wheezes. Lymphadenopathy: She has no cervical adenopathy. Skin: Skin is warm and dry. Nursing note and vitals reviewed. Labs No results found for this or any previous visit (from the past 24 hour(s)). No results found. Orders and Treatments Orders Placed This Encounter Procedures COVID-19 (PCR MOLECULAR TESTING) Outpatient Encounter Medications as of 03/07/2020 Medication Sig empagliflozin (JARDIANCE) 10 mg Tab Take 1 tablet by mouth. PARoxetine 10 mg tablet Take 1 tablet by mouth. hydroCHLOROthiazide 25 mg tablet Take 25 mg by mouth daily. metFORMIN 1,000 mg tablet Take 1,000 mg by mouth 2 (two) times daily with meals. atorvastatin 10 mg tablet TAKE 1 TABLET BY MOUTH ONCE DAILY FOR 30 DAYS cholecalciferol, vitamin D3, 25 mcg (1,000 unit) tablet Take 1 tablet by mouth. lisinopril 10 mg tablet TAKE 1 TABLET BY MOUTH ONCE DAILY FOR 30 DAYS sulfamethoxazole-trimethoprim 800-160 mg per tablet Take 1 tablet by mouth every 12 (twelve) hours. No results found for this visit on 03/07/20. Diagnosis Patient well appearing, NAD noted on exam Patient speaking in complete sentences on exam. Physical exam otherwise unremarkable Vital signs WNL Luz Maria was seen today for stomach ache and exposure. Diagnoses and all orders for this visit: Suspected Covid-19 Virus Infection - COVID-19 (PCR MOLECULAR TESTING); Future - COVID-19 (PCR MOLECULAR TESTING) Disposition & Follow Up - Discussed likely viral diagnosis and treatment plan with pt. - pt advised on frequent effective handwashing - pt advised to increase fluid intake - advised to have the pt take OTC to treat symptoms. - Pt advised to administer Tylenol as per label recommendation as needed for pain or fever - AVS and Written/handout materials appropriate to problem and teaching provided. - advised to go to the nearest Emergency Department sooner for any new, worsening, persistent, or concerning symptoms - Patient verbalized understanding of all instructions EDUCATION: Handouts given: "What to do if you are sick with COVID-19" CDC information guide reviewed with the patient and handout given to patient Education given to self quarantine until results are back. Will notify patient with results. Patient states understanding and all questions answered. Plan of care, goals and medications discussed with patient. Patient voices understanding. Barriers to care: none Ability to manage care: good This visit did not involve counseling and coordination that comprised more than 50% of the visit time. Serge Andrews PA-C 03/07/2020 8:52 AM documented in this encounter Plan of Treatment Name Type Priority Associated Diagnoses Date/Ti me COVID-19 (PCR MOLECULAR LAB Routine Suspected Covid-1 9 Virus 03/07/2020 8:24 AM CDT TESTING) Infection Name Type Priority Associated Diagnoses Order S chedule COVID-19 (PCR MOLECULAR LAB Routine Suspected Covid-1 9 Virus Expected: 03/07/2020, TESTING) Infection Expires: 2020 Health Maintenance Due Date Last Done Comments DTaP,Tdap,and Td Vaccines (1 - 1982 Tdap) Depression Screening 1983 PAP SMEAR 02/27/1992 Breast Cancer Screening 2011 (MAMMOGRAM) INFLUENZA VACCINE (Season Ended) 2020 PNEUMOCOCCAL 0-64 YEARS COMBINED Aged Out No longer eligible based on SERIES patient's age to complete this topic documented as of this encounter Results Not on filedocumented in this encounter Visit Diagnoses Diagnosis Viral upper respiratory tract infection - Primary Acute upper respiratory infections of un specified site Suspected Covid-19 Virus Infection documented in this encounter Insurance Payer Benefit Plan Subscriber ID Effective Dates Phone Address Type / Group [facility] [id number] 2020-Eleanor [phone] [place] [address] [place] P[place] [id number] [place] [address] documented as of this encounter
--- OUTSIDE RECORDS SUMMARY | 2020-05-25 09:07 | XMS REPORT ---
:1970 Author Organization [employer] Care Team Providers Name Role Phone DuranJerod Provider Role Unavailable Allergies, Adverse Reactions, Alerts Substance Reaction Event Type N.K.D.A. Info Not Available Non Drug Allergy Problems Problem Type Condition Code Onset Dates Condition Statu s Assessment Noncompliance w/medication Z91.14 A ctive treatment due to intermit use of medication Assessment Body mass index (BMI) of 39.0-39.9 Z68.39 Active in adult Problem HTN, goal below 130/80 I10 Activ e Assessment Morbid (severe) obesity due to E66.01 Active excess calories Problem Asymptomatic hypertensive urgency I16.0 Active Assessment Status post hysterectomy Z90.710 Act josette Problem Allergic rhinitis, unspecified J30.9 Active seasonality, unspecified trigger Problem Type 2 diabetes mellitus with E11.8 Active complication, without long-term current use of insulin Problem Adult BMI 40.0-44.9 kg/sq m Z68.41 Active Problem Body mass index (BMI) of 39.0-39.9 Z68.39 Active in adult Problem Morbid (severe) obesity due to E66.01 Active excess calories Assessment HTN, goal below 130/80 I10 Activ e Assessment Mixed hyperlipidemia E78.2 Active Problem Status post hysterectomy Z90.710 Act josette Assessment Allergic rhinitis, unspecified J30.9 Active seasonality, unspecified trigger Problem Mixed hyperlipidemia E78.2 Active Problem Uterine leiomyoma, unspecified D25.9 Active location Problem Abnormal uterine bleeding (AUB) N93.9 Active Problem Preoperative examination Z01.818 Act josette Problem Depression with anxiety F41.8 Acti ve Assessment Depression with anxiety F41.8 Acti ve Assessment Type 2 diabetes mellitus with E11.8 Active complication, without long-term current use of insulin Problem Patient's noncompliance with Z91.11 Active dietary regimen Problem Uncontrolled type 2 diabetes E11.65 Active mellitus with hyperglycemia Problem Vitamin D deficiency E55.9 Active Problem Iron deficiency anemia due to D50.0 Active chronic blood loss Medications Medication Code Code Instructions Start End Status Dosage System Date Date Lisinopril [facility] 50533793176 10 MG Orally Active 1 ta blet Once a day Paroxetine HCl [facility] [place] 30961385434 10 MG Orally Active 1 tablet Once a day in the morning Vitamin D [facility] [place] 47322154797 1000 UNIT Active 1 tablet Orally Once a day Jardiance [facility] 64716749924 10 MG Orally March 1 ta blet Once a day 2019 Hydrochlorothiazide [facility] [place] 97911836781 25 MG Orally Act josette 1 tablet Once a day in the morning Janumet XR [facility] [place] 51336692798 100-1000 MG March Active 1 tab let Orally Once a 14, with 2019 evening meal Lisinopril [facility] 27388984746 10 MG Active TAKE 1 TABLET BY MOUTH ONCE DAILY Ferrous Sulfate [facility] [place] [address]-28 325 MG Orally Acti ve as directed Lipitor [facility] 09717579971 10 MG Orally Active 1 table t Once a day Metformin HCl [facility] [place] 46852477776 1000 MG Orally Inactiv e 1 tablet Twice a day with a meal Results No Known Results Summary Purpose [employer] Submission
--- NOTE | 2020-05-25 09:56 | RAD REPORT ---
EXAM DESCRIPTION: CT - Head Brain Wo Cont - 05/25/2020 9:46 am CLINICAL HISTORY: Dizziness;Headache Headache, dizziness, drowsiness COMPARISON: No comparisons TECHNIQUE: All CT scans are performed using dose optimization technique as appropriate and may inclu de automated exposure control or mA/KV adjustment according to patient size. FINDINGS: No intracranial hemorrhage, hydrocephalus or extra-axial fluid collection.No areas of brai n edema or evidence of midline shift. Mild multifocal paranasal sinus thickening. The calvarium is intact. IMPRESSION: No acute intracranial abnormality.
[2020-05-25] MEDS ORDERED: ONDANSETRON 4 MG/2 ML VIAL ONE (10:14)
[2020-05-25] MEDS ORDERED: MECLIZINE HCL 12.5 MG TAB ONE (10:14)
[2020-05-25] MEDS ORDERED: NA CHLORIDE 0.9% 1,000 ML ONE (10:14)
--- NOTE | 2020-05-25 11:09 | EDPHYS ---
Physician Documentation [facility] Name: Luz Maria Gonzalez Age: 50 yrs Sex: Female : 1970 Arrival Date: 05/25/2020 Time: 09:08 Bed 8 Private MD: Jerod Duran ED Physician Harrison Escobedo HPI: 05/25 09:43 This 50 yrs old Female presents to ER via Ambulatory with complaints of rn Headache. 09:43 The patient complains of pain to the all over. The patient describes the headache as rn aching. Onset: The symptoms/episode began/occurred 2 day(s) ago. Associated signs and symptoms: Pertinent positives: dizziness, Pertinent negatives: fever, neck stiffness, rash, vision changes, vision loss, vomiting, weakness. Severity of symptoms: At its worst the pain was moderate, in the emergency department the pain has improved. The patient has not experienced similar symptoms in the past. The patient has not recently seen a physician. Reports 2 days of headache, pressure, "all over", no trauma, reports feels dizzy and like spinning, + nausea, no vomiting. No chest pain. no syncope. Reports symptoms worse with turning head. No focal neuro complaint. Called pcp who told her to come in for evaluation.. Historical: - Allergies: 09:20 No Known Allergies; ss - PMHx: 09:20 Depression; Diabetes - NIDDM; High Cholesterol; Hypertension; uterine fibroid; ss - PSHx: 09:20 Tubal ligation; Hysterectomy; left wrist; ss - Immunization history:: Adult Immunizations up to date. - Social history:: Smoking status: Patient denies any tobacco usage or history of. - Family history:: not pertinent. ROS: 09:43 Constitutional: Negative for fever, chills, and weight loss, Eyes: Negative for injury, rn pain, redness, and discharge, Neck: Negative for injury, pain, and swelling, Cardiovascular: Negative for chest pain, palpitations, and edema, Respiratory: Negative for shortness of breath, cough, wheezing, and pleuritic chest pain, Abdomen/GI: Negative for abdominal pain, diarrhea, and constipation, MS/Extremity: Negative for injury and deformity, Skin: Negative for injury, rash, and discoloration, Neuro: Negative for weakness, numbness, tingling, and seizure. Exam: 09:43 Constitutional: This is a well developed, well nourished patient who is awake, alert, rn and in no acute distress. Head/Face: Normocephalic, atraumatic. Eyes: Pupils equal round and reactive to light, extra-ocular motions intact. Lids and lashes normal. Conjunctiva and sclera are non-icteric and not injected. Cornea within normal limits. Periorbital areas with no swelling, redness, or edema. Cardiovascular: Regular rate and rhythm. No pulse deficits. Respiratory: No increased work of breathing, no retractions or nasal flaring. Skin: Warm, dry with normal turgor. Normal color with no rashes, no lesions, and no evidence of cellulitis. MS/ Extremity: Pulses equal, no cyanosis. Neurovascular intact. Full, normal range of motion. Equal circumference. Neuro: Awake and alert, GCS 15, oriented to person, place, time, and situation. Cranial nerves II-XII grossly intact. Motor strength 5/5 in all extremities. Sensory grossly intact. Cerebellar exam normal. 10:16 ECG was reviewed by the Attending Physician. rn Vital Signs: 09:20 BP 125 / 94; Pulse 77; Resp 16; Temp 98.4(TE); Pulse Ox 100% on R/A; Weight 95.25 kg; ss Height 5 ft. 2 in. (157.48 cm); Pain 8/10; 10:45 BP 120 / 88; Pulse 74; Resp 15; Pulse Ox 99% on R/A; hb 09:20 Body Mass Index 38.41 (95.25 kg, 157.48 cm) Aki Coma Score: 11:07 Eye Response: spontaneous(4). Verbal Response: oriented(5). Motor Response: obeys rn commands(6). Total: 15. MDM: 09:25 Patient medically screened. rn 11:07 Differential diagnosis: hypertensive headache, migraine, neoplasm, tension headache, rn vasomotor headache, Vertigo. Data reviewed: vital signs, nurses notes, radiologic studies, CT scan, and as a result, I will discharge patient. Counseling: I had a detailed discussion with the patient and/or guardian regarding: the historical points, exam findings, and any diagnostic results supporting the discharge/admit diagnosis, radiology results, the need for outpatient follow up, to return to the emergency department if symptoms worsen or persist or if there are any questions or concerns that arise at home. Response to treatment: the patient's symptoms have markedly improved after treatment, and as a result, I will discharge patient. Special discussion: I discussed with the patient/guardian in detail that at this point there is no indication for admission to the hospital. It is understood, however, that if the symptoms persist or worsen the patient needs to return immediately for re-evaluation. ED course: Markedly improved, denies dizziness, normal neuro exam, neg ct head, will dc home with prn vertigo medication and neuro f/u.. 05/25 09:25 Order name: CT Head Brain wo Cont; Complete Time: 09:57 rn 05/25 09:35 Order name: IV Start; Complete Time: 10:16 rn 05/25 09:35 Order name: EKG; Complete Time: 09:36 rn 05/25 09:35 Order name: EKG - Nurse/Tech; Complete Time: 10:16 rn EC:16 Rate is 63 beats/min. Rhythm is regular. QRS [place] is Normal. DC interval is normal. QRS rn interval is normal. QT interval is normal. No Q waves. T waves are Normal. No ST changes noted. Clinical impression: Normal ECG. Interpreted by me. Reviewed by me. Administered Medications: 09:55 Drug: NS 0.9% 1000 ml Route: IV; Rate: 1000 ml; Site: right antecubital; hb 10:56 Follow up: Response: No adverse reaction; IV Status: Completed infusion; IV Intake: hb 1000ml 09:55 Drug: Zofran (Ondansetron) 4 mg Route: IVP; Site: right antecubital; hb 10:26 Follow up: Response: No adverse reaction hb 09:55 Drug: Meclizine 50 mg Route: PO; hb 10:50 Follow up: Response: No adverse reaction hb Disposition: 05/25/20 11:08 Discharged to Home. Impression: Vertigo. - Condition is Stable. - Discharge Instructions: Vertigo. - Prescriptions for Zofran ODT 4 mg Oral tablet,disintegrating - place 1 tablet by TRANSLINGUAL route every 8 hours As needed; 15 tablet. Meclizine 25 mg Oral Tablet - take 1 tablet by ORAL route every 8 hours As needed; 30 tablet. - Medication Reconciliation Form, Thank You Letter, Antibiotic Education, Prescription Opioid Use, Work release form, Family Work Release form. - Follow up: Mk Lee MD; When: As needed; Reason: Recheck today's complaints, Re-evaluation by your physician. - Problem is new. - Symptoms have improved. Signatures: Dispatcher [employer] EDHarrison Maldonado MD MD rn Smirch, Shelby, RN RN ss Baxter, Heather, RN RN hb Corrections: (The following items were deleted from the chart) 11:25 11:08 05/25/2020 11:08 Discharged to Home. Impression: Vertigo. Condition is Stable. hb Forms are Medication Reconciliation Form, Thank You Letter, Antibiotic Education, Prescription Opioid Use. Follow up: Mk Lee; When: As needed; Reason: Recheck today's complaints, Re-evaluation by your physician. Problem is new. Symptoms have improved. rn
--- NOTE | 2020-05-25 11:09 | ER ---
Nurse's Notes [facility] Name: Luz Maria Gonzalez Age: 50 yrs Sex: Female : 1970 Arrival Date: 05/25/2020 Time: 09:08 Bed 8 Private MD: Jerod Duran Diagnosis: Vertigo Presentation: 05/25 09:20 Chief complaint: Patient states: "I've been getting these headaches since Saturday ss morning and Saturday when I woke up, I felt really dizzy and when I went back to bed I was afraid to go to sleep because my head was so dizzy. When I sit down for a long time I feel fine, but If I get up and move around or move my head to the side it gets worse.". Coronavirus screen: Client denies travel out of the [place] in the last 14 days. Ebola Screen: Patient denies exposure to infectious person. Patient denies travel to an Ebola-affected area in the 21 days before illness onset. Initial Sepsis Screen: Does the patient meet any 2 criteria? No. Patient's initial sepsis screen is negative. Does the patient have a suspected source of infection? No. Patient's initial sepsis screen is negative. Risk Assessment: Do you want to hurt yourself or someone else? Patient reports no desire to harm self or others. Onset of symptoms was May 21, 2020. 09:20 Method Of Arrival: Ambulatory ss 09:20 Acuity: ROLO 3 ss Historical: - Allergies: 09:20 No Known Allergies; ss - PMHx: 09:20 Depression; Diabetes - NIDDM; High Cholesterol; Hypertension; uterine fibroid; ss - PSHx: 09:20 Tubal ligation; Hysterectomy; left wrist; ss - Immunization history:: Adult Immunizations up to date. - Social history:: Smoking status: Patient denies any tobacco usage or history of. - Family history:: not pertinent. Screenin:27 Abuse screen: Denies threats or abuse. Denies injuries from another. Nutritional hb screening: No deficits noted. Tuberculosis screening: No symptoms or risk factors identified. Fall Risk None identified. Assessment: 09:27 General: Appears in no apparent distress. Behavior is calm, cooperative. Pain: Pain hb currently is 8 out of 10 on a pain scale. Neuro: Level of Consciousness is awake, alert, obeys commands, Oriented to person, place, time, situation, Reports dizziness, headache. Cardiovascular: Capillary refill < 3 seconds Patient's skin is warm and dry. Respiratory: Respiratory effort is even, unlabored, Respiratory pattern is regular, symmetrical. GI: No signs and/or symptoms were reported involving the gastrointestinal system. : No signs and/or symptoms were reported regarding the genitourinary system. EENT: No signs and/or symptoms were reported regarding the EENT system. Derm: Skin is pink, warm \\T\\ dry. Musculoskeletal: No signs and/or symptoms reported regarding the musculoskeletal system. 10:30 Reassessment: Patient appears in no apparent distress at this time. Patient and/or hb family updated on plan of care and expected duration. Pain level reassessed. Patient is alert, oriented x 3, equal unlabored respirations, skin warm/dry/pink. Vital Signs: 09:20 BP 125 / 94; Pulse 77; Resp 16; Temp 98.4(TE); Pulse Ox 100% on R/A; Weight 95.25 kg; ss Height 5 ft. 2 in. (157.48 cm); Pain 8/10; 10:45 BP 120 / 88; Pulse 74; Resp 15; Pulse Ox 99% on R/A; hb 09:20 Body Mass Index 38.41 (95.25 kg, 157.48 cm) ss [place] Coma Score: 11:07 Eye Response: spontaneous(4). Verbal Response: oriented(5). Motor Response: obeys rn commands(6). Total: 15. ED Course: 09:08 Patient arrived in ED. mr 09:08 Jerod Duran DO is Private Physician. mr 09:20 Arm band placed on right wrist. ss 09:22 Triage completed. ss 09:25 Harrison Escobedo MD is Attending Physician. rn 09:27 Kath Barton, VALENTÍN is Primary Nurse. hb 09:27 Patient has correct armband on for positive identification. Bed in low position. Call hb light in reach. 09:46 CT Head Brain wo Cont In Process Unspecified. EDMS 10:07 Inserted saline lock: 22 gauge in right forearm, using aseptic technique. ss 11:08 Mk Lee MD is Referral Physician. rn 11:11 No provider procedures requiring assistance completed. IV discontinued, intact, hb bleeding controlled, No redness/swelling at site. Administered Medications: 09:55 Drug: NS 0.9% 1000 ml Route: IV; Rate: 1000 ml; Site: right antecubital; hb 10:56 Follow up: Response: No adverse reaction; IV Status: Completed infusion; IV Intake: hb 1000ml 09:55 Drug: Zofran (Ondansetron) 4 mg Route: IVP; Site: right antecubital; hb 10:26 Follow up: Response: No adverse reaction hb 09:55 Drug: Meclizine 50 mg Route: PO; hb 10:50 Follow up: Response: No adverse reaction hb Intake: 10:56 IV: 1000ml; Total: 1000ml. hb Outcome: 11:08 Discharge ordered by . rn 11:11 Discharged to home ambulatory. hb 11:11 Condition: stable 11:11 Discharge instructions given to patient, Instructed on discharge instructions, follow hb up and referral plans. medication usage, Demonstrated understanding of instructions, follow-up care, medications, Prescriptions given X 2. 11:25 Patient left the ED. hb Signatures: Dispatcher [employer] [facility] Brie MirelesHarrison walters MD MD rn Smirch, Shelby, RN RN ss Baxter, Heather, RN RN hb Corrections: (The following items were deleted from the chart) 11:10 11:09 BP 120 / 88; Pulse 74bpm; Resp 15bpm; Pulse Ox 99% RA; hb hb
[2020-05-25 11:33] VITALS: TEMP 98.4
[2020-05-25 11:35] VITALS: BP 120/88; O2SAT 99
== END 2020-05-25 11:25 | disposition home or self-care (01) ==
LOC: ER 09:04
DX: R42 Dizziness and giddiness (principal); I10 Essential (primary) hypertension
CPT/HCPCS: 96361; 70450; 96374; 99284; J7030; J2405; J8597

== ENCOUNTER 2021-01-20 08:50 | Emergency (ER) | payer BC, OTHER ==
--- OUTSIDE RECORDS SUMMARY | 2021-01-20 08:53 | XMS REPORT | Continuity of Care Document ---
:1970 Author Organization [facility] t Address [address] [place] [address] Care Team Providers Name Role Phone Austin MARI Primary Care Physician Unavailable Dennis GRANT Attending Clinician Willa GRANT S Attending Clinician Darryl CARR Attending Clinician Austin MARI Attending Clinician Unavailable Payers Payer Name Policy Type Policy Effective Date Expiration Date Sour ce Number OGDEN [id number] 2018 MD [place] [employer] 00:00:00 HEALTHCARE [id number] 2018-P resentPPO Problems Condition Condition Condition Status Onset Resolution Last Treating Co mments Source Name Details Category Date Date Treatment Clinician Date Iron Iron Disease Active deficiency deficiency 03-17 An derso anemia anemia 00:00: n 00 Abnormal Abnormal Disease Active uterine uterine 03-17 Anderso bleeding bleeding 00:00: n 00 Uterine Uterine Disease Active leiomyoma leiomyoma 03-17 Iraj rso 00:00: n 00 Mixed Mixed Disease Active anxiety anxiety 03-17 Anderso and and 00:00: n depressive depressive 00 disorder disorder Essential Essential Disease Active (primary) (primary) 03-17 Iraj rso hypertensi hypertensi 00:00: n on on 00 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 n L) 25 mg 18 tablet cholecalcif Yes 1{tbl} Take 1 MD margie, 9-06 tablet by Anderso vitamin D3, 13:16: mouth n (VITAMIN D3 18 daily. ORAL) ferrous Yes 1{tbl} Take 1 MD sulfate 9-06 tablet by Anderso (IRON ORAL) 13:16: mouth n 18 daily. multivitami Yes 1{tbl} Take 1 MD n 9-06 tablet by Anderso (multivitam 13:16: mouth n in) tablet 18 daily. ibuprofen Yes Uterine 600mg Take 1 MD (ADVIL,MOTR 7-25 leiomyoma tablet A nderso IN) 600 mg 00:00: (600 mg) n tablet 00 by mouth every 6 (six) hours as needed for moderate pain. PARoxetine 2018- Yes 1{tbl} Take 1 MD (PAXIL) 10 [...] HCl Duran in the [facility] - morning [facility] Hydrochloro Hydrochloro Yes Jerod [address] [facility] thiazide thiazide Duran in the Luke [facility] - morning [facility] Vitamin D Vitamin D Yes Jerod [address] [facility] Duran [facility] - [facility] Lisinopril Lisinopril Yes Jerod TAKE [address] [facility] Duran TABLET BY [facility] - MOUTH ONCE Memoria DAILY [facility] Metformin Metformin Yes Jerod [address] [facility] HCl HCl Duran with a Lukes - meal [facility] Ferrous Ferrous Yes Jerod as [facility] Sulfate Sulfate Duran directed Luke s - [facility] Jardiance Jardiance 2019- No Jerod [address] [facility] 07-14 Duran [facility] - 00:00 [facility] :00 [facility] Immunizations Ordered Filled Immunization Date Status Comments [facility] e Immunization Name Name Afluria single dose Afluria single dose 2019-06-[address] [facility] 00[facility]00 [facility] Afluria Afluria 2018-11-[address] [facility]00 [facility] Procedures This patient has no known procedures. Encounters Start End Encounter Admission Attending Care Care Encounter Source Date/Time Date/Time Type Type Clinicians Facility Department ID 2021-01-06 2021-01-06 Outpatient [facility] [id number] [facility] 2020-12-22 2020-12-22 Outpatient [facility] [id number] [facility] 2020-12-14 2020-12-14 Out[facility] [id number] [facility] 2020-12-05 2020-12-05 Out[facility] [id number] [facility] 2020-11-25 2020-11-25 Out[facility] [id number] [facility] 2020-08-08 2020-08-08 Out[facility] [id number] [facility] 2020-08-01 2020-08-01 Out[facility] [id number] [facility] 2020-07-31 2020-07-31 Emergency [place] [id number] 04:17:00 06:08:00 Eyad Del Rosario [id number] [place] [id number] [place] [id number] 2020-05-25 2020-05-25 [facility] [id number] [facility] 08:28:00 08:28:00 t [facility] Outpati ent Clinics 2020-03-22 2020-03-22 [facility] [id number] [facility] 08:00:00 08:00:00 t [facility] s - [facility] Medicine Outpati ent Clinics 2020-03-08 2020-03-[id number] 00:00:00 00:00:00 Serge Del Rosario [id number] [place] [id number] [place] [id number] 2020-01-19 2020-01-19 [facility] [id number] 13:45:00 13:45:00 t [employer] s [employer] [facility] Medicine Outpati ent Clinics 2019-09-14 2019-09-14 [facility] [id number] 14:15:00 14:15:00 t [employer] s [employer] [facility] Medicine Outpati ent Clinics 2019-08-17 2019-08-17 [facility] [id number] 16:50:00 16:50:00 t [employer] [facility] Medicine Outpati ent Clinics 2019-06-02 2019-06-02 [facility] [id number] 08:45:00 08:45:00 t [employer] [facility] Medicine Outpati ent Clinics 2019-04-10 2019-04-10 [facility] [id number] 12:23:00 12:23:00 t [employer] [facility] Medicine Outpati ent Clinics 2019-04-02 2019-04-02 Outpatient [id number] 05:39:00 05:39:00 2019-03-31 2019-03-31 [facility] [id number] 11:59:00 11:59:00 t [employer] [facility] Medicine Outpati ent Clinics 2019-03-31 2019-03-31 [facility] [id number] 11:55:00 11:55:00 t [employer] [facility] Medicine Outpati ent Clinics 2019-03-18 2019-03-18 Outpatient LATOSHA MARI MDA MDA [id number] 10:03:12 10:03:12 SASKIA vanegas 2019-02-19 2019-02-19 [facility] [id number] 08:14:00 08:14:00 t [facility] Outpati ent Clinics 2019-02-17 2019-02-17 [facility] [id number] 09:45:00 09:45:00 t [facility] l Outpati ent Clinics 2019-01-05 2019-01-05 [facility] [id number] 16:38:00 16:38:00 t [employer]fall [employer] s - Drive [facility] Medicine Outpati ent Clinics 2019-01-01 2019-01-01 [facility] [id number] 09:48:00 09:48:00 t [facility] l Outpati ent Clinics 2018-12-31 2018-12-31 [facility] [id number] 16:40:00 16:40:00 t Waterfall [employer] s - Drive [facility] Medicine Outpati ent Clinics 2018-12-30 2018-12-30 [facility] [id number] 11:15:00 11:15:00 t [facility] Outpati ent Clinics 2018-12-12 2018-12-12 [facility] [id number] 15:33:00 15:33:00 t [employer] s - Drive [facility] Medicine Outpati ent Clinics 2018-12-12 2018-12-12 [facility] [id number] 12:57:00 12:57:00 t [employer] s - Drive [facility] Medicine Outpati ent Clinics 2018-12-12 2018-12-12 [facility] [id number] 08:15:00 08:15:00 t [employer] s - Drive [facility] Medicine Outpati ent Clinics 2018-12-04 2018-12-04 [facility] [id number] 11:46:00 11:46:00 t [employer] s - Drive [facility] Medicine Outpati ent Clinics 2018-12-03 2018-12-03 [facility] [id number] 11:55:00 11:55:00 t [facility] Care [facility] l Outpati ent Clinics 2018-11-05 2018-11-05 [facility] [id number] 15:59:00 15:59:00 t [employer] [facility] Clinics 2018-11-05 2018-11-05 Outpatient Bob Sethi [id number] [facility] 10:00:00 10:00:00 [email or web address] [facility] 2018-08-26 2018-08-26 Outpatient Bob Sethi [id number] [facility] 09:15:00 09:15:00 [email or web address] [facility] Results This patient has no known results.
[2021-01-20 09:07] LABS: Urine Blood 3+ (Negative); Urine Glucose Negative (Negative); Urine Protein 2+ (Negative); Urine Specific Gravity >=1.030 (1.005-1.030); Urine pH 5.5 (5.0-7.0)
[2021-01-20] MEDS ORDERED: NA CHLORIDE 0.9% 1,000 ML ONE ×2 (09:32→10:38)
[2021-01-20 09:34] LABS: Basophils % 0.4 % (0-1.3); Hematocrit 40.6 % (36.0-45.0); Lymphocytes % 12.1 % (15.3-44.8); MPV 8.5 fL (7.6-11.3); RBC Red Blood Cell Count 4.48 M/uL (3.86-4.86)
--- NOTE | 2021-01-20 09:41 | RAD REPORT ---
EXAM DESCRIPTION: CT - Stone Protocol - 01/20/2021 9:30 am CLINICAL HISTORY: Flank pain. Abd pain;Flank pain COMPARISON: Abdomen Pelvis W Contrast dated 12/02/2018 TECHNIQUE: Axial images were obtained without oral or IV contrast. Lack of contrast limits solid org an and vascular assessment. The [id number] spans the entirety of the system partially obscuring uppermost abdomen and lung bases. Coronal reformatted images were obtained and reviewed. All CT scans are performed using dose optimization technique as appropriate and may include automated exposure control or mA/KV adjustment according to patient size. FINDINGS: The lower lung torres are clear. Imaged portions of the liver and spleen show no suspicious findings on non-contrast imaging. The panc reas and adrenal glands are normal. No pathologic lymphadenopathy in the abdomen or pelvis. 7 mm stone is present proximal right ureter with moderate right hydronephrosis. Small calculi are pre sent in both kidneys as well, slightly greater in the inferior right renal calyx. No bowel obstruction, free air, free fluid or abscess. Normal appendix noted. Large calcified disc bulge is present at L5-S1. IMPRESSION: 7 mm obstructive stone proximal right ureter with moderate right hydronephrosis. Additional bilateral nephrolithiasis is present, most notable in the inferior calyx of the right kidn ey.
[2021-01-20] MEDS ORDERED: CEFTRIAXONE/SWI 1gm 1 GM/10 ML SYR ONE (09:42)
[2021-01-20] MEDS ORDERED: TAMSULOSIN 0.4 MG SR CAP ONE (09:42)
[2021-01-20] MEDS ORDERED: MORPHINE 2 MG/ML SYR ONE (09:42)
[2021-01-20] MEDS ORDERED: ONDANSETRON 4 MG/2 ML VIAL ONE (09:42)
[2021-01-20] MEDS ORDERED: KETOROLAC 30 MG/ML INJ ONE (09:42)
[2021-01-20 09:48] LABS: ALT/SGPT 32 U/L (12-78); AST/SGOT 15 U/L (15-37); Alkaline Phosphatase 98 U/L (45-117); BUN Blood Urea Nitrogen 18 mg/dL (7-18); Bicarbonate 23 mmol/L (21-32); Bilirubin Direct 0.2 mg/dL (0-0.2); Bilirubin Total 0.6 mg/dL (0.2-1.0); Glucose Level 142 mg/dL (74-106); Lipase 499 U/L (73-393); Potassium 3.9 mmol/L (3.5-5.1); Protein, Total 8.5 g/dL (6.4-8.2); Sodium Level 136 mmol/L (136-145)
--- NOTE | 2021-01-20 10:12 | EDPHYS ---
Physician Documentation [facility] Name: Luz Maria Gonzalez Age: 50 yrs Sex: Female : 1970 Arrival Date: 01/20/2021 Time: 08:51 Bed 5 Private MD: Chau Hill HPI: 01/20 09:17 This 50 yrs old Female presents to ER via EMS with complaints of right flank maykel pain, nausea and vomiting. 09:17 The patient presents with abdominal pain right lower quadrant. Onset: The maykel symptoms/episode began/occurred just prior to arrival. The patient complains of pain in the right mid back. The pain radiates to the right mid back and right low back. Onset: The symptoms/episode began/occurred just prior to arrival. Modifying factors: The symptoms are alleviated by nothing. Associated signs and symptoms: The patient has no apparent associated signs or symptoms. The symptoms radiate to the right flank. Associated signs and symptoms: Pertinent positives: nausea, vomiting. Modifying factors: The symptoms are alleviated by nothing, the symptoms are aggravated by nothing. 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 - Social history:: Smoking status: Patient denies any tobacco usage or history of. - Family history:: not pertinent. ROS: 09:17 Constitutional: Negative for fever, chills, and weight loss, Eyes: Negative for injury, maykel pain, redness, and discharge, ENT: Negative for injury, pain, and discharge, Neck: Negative for injury, pain, and swelling, Cardiovascular: Negative for chest pain, palpitations, and edema, Respiratory: Negative for shortness of breath, cough, wheezing, and pleuritic chest pain, : Negative for injury, bleeding, discharge, and swelling, MS/Extremity: Negative for injury and deformity, Skin: Negative for injury, rash, and discoloration, Neuro: Negative for headache, weakness, numbness, tingling, and seizure, Psych: Negative for depression, anxiety, suicide ideation, homicidal ideation, and hallucinations, Allergy/Immunology: Negative for hives, rash, and allergies, Endocrine: Negative for neck swelling, polydipsia, polyuria, polyphagia, and marked weight changes, Hematologic/Lymphatic: Negative for swollen nodes, abnormal bleeding, and unusual bruising. 09:17 Abdomen/GI: Positive for nausea and vomiting, abdominal cramps, of the posterior aspect of right lateral abdomen, anterior aspect of right lateral abdomen and right lower quadrant. Exam: 09:17 Constitutional: This is a well developed, well nourished patient who is awake, alert, maykel and in no acute distress. Head/Face: Normocephalic, atraumatic. Eyes: Pupils equal round and reactive to light, extra-ocular motions intact. Lids and lashes normal. Conjunctiva and sclera are non-icteric and not injected. Cornea within normal limits. Periorbital areas with no swelling, redness, or edema. ENT: Nares patent. No nasal discharge, no septal abnormalities noted. Tympanic membranes are normal and external auditory canals are clear. Oropharynx with no redness, swelling, or masses, exudates, or evidence of obstruction, uvula midline. Mucous membranes moist. Neck: Trachea midline, no thyromegaly or masses palpated, and no cervical lymphadenopathy. Supple, full range of motion without nuchal rigidity, or vertebral point tenderness. No Meningismus. Chest/axilla: Normal chest wall appearance and motion. Nontender with no deformity. No lesions are appreciated. Cardiovascular: Regular rate and rhythm with a normal S1 and S2. No gallops, murmurs, or rubs. Normal PMI, no JVD. No pulse deficits. Respiratory: Lungs have equal breath sounds bilaterally, clear to auscultation and percussion. No rales, rhonchi or wheezes noted. No increased work of breathing, no retractions or nasal flaring. Back: No spinal tenderness. No costovertebral tenderness. Full range of motion. Skin: Warm, dry with normal turgor. Normal color with no rashes, no lesions, and no evidence of cellulitis. MS/ Extremity: Pulses equal, no cyanosis. Neurovascular intact. Full, normal range of motion. Neuro: Awake and alert, GCS 15, oriented to person, place, time, and situation. Cranial nerves II-XII grossly intact. Motor strength 5/5 in all extremities. Sensory grossly intact. Cerebellar exam normal. Normal gait. Psych: Awake, alert, with orientation to person, place and time. Behavior, mood, and affect are within normal limits. 09:17 Abdomen/GI: Inspection: abdomen appears normal, Bowel sounds: normal, Palpation: mild abdominal tenderness, in the right lower quadrant, Liver: no appreciated palpable abnormalities, Hernia: not appreciated. Vital Signs: 09:00 BP 148 / 86; Pulse 68; Resp 15 S; Temp 98(O); Pulse Ox 98% on R/A; Weight 81.65 kg (R); jl7 Height 5 ft. 2 in. (157.48 cm) (R); 10:09 BP 119 / 78; Pulse 64; Resp 15; Pulse Ox 100% ; jl7 10:51 BP 131 / 78; Pulse 56; Pulse Ox 99% on R/A; ap3 09:00 Body Mass Index 32.92 (81.65 kg, 157.48 cm) jl7 MDM: 08:52 Patient medically screened. [facility] 09:21 Differential diagnosis: diverticulitis, cholecystitis, Cholelithiasis, non-specific abd maykel pain, pancreatitis, Peptic Ulcer Disease, Pyelonephritis, Ureterolithiasis, urinary tract infection. Data reviewed: vital signs, nurses notes, lab test result(s), CBC, electrolytes, radiologic studies, CT scan. Data interpreted: living advisor: rate is 68 beats/min, rhythm is regular, Pulse oximetry: on room air is 98 %. Counseling: I had a detailed discussion with the patient and/or guardian regarding: the historical points, exam findings, and any diagnostic results supporting the discharge/admit diagnosis, lab results, radiology results. 01/20 09:07 Order name: Urine Dipstick-Ancillary; Complete Time: 09:11 EDMS 01/20 09:08 Order name: Urine --Ancillary (enter results) eb 01/20 09:15 Order name: Basic Metabolic Panel; Complete Time: 10:10 maykel 01/20 09:15 Order name: CBC with Diff; Complete Time: 10:10 [facility] 01/20 09:15 Order name: Hepatic Function; Complete Time: 10:10 [facility] 01/20 09:15 Order name: Lipase; Complete Time: 10:10 [facility] 01/20 09:15 Order name: CT Stone Protocol; Complete Time: 10:10 [facility] 01/20 09:15 Order name: IV Saline Lock; Complete Time: 09:17 [facility] 01/20 09:15 Order name: Labs collected and sent; Complete Time: 09:18 [facility] Administered Medications: 09:17 Drug: NS 0.9% 1000 ml Route: IV; Rate: 1 bolus; Site: right wrist; ap3 10:25 Follow up: Response: No adverse reaction; IV Status: Completed infusion ap3 09:43 Drug: Zofran (Ondansetron) 4 mg Route: IVP; Site: right wrist; ap3 10:49 Follow up: Response: No adverse reaction; Nausea is decreased ap3 09:43 Drug: Flomax (tamsulosin) 0.4 mg Route: PO; ap3 10:50 Follow up: Response: No adverse reaction ap3 09:43 Drug: Rocephin (cefTRIAXone) 1 grams Route: IV; Rate: per protocol; Site: right wrist; ap3 10:50 Follow up: Response: No adverse reaction ap3 11:27 Follow up: Response: No adverse reaction; IV Status: Completed infusion ap3 09:44 Drug: TORadol (ketorolac) 30 mg Route: IVP; Site: right wrist; ap3 10:49 Follow up: Response: No adverse reaction; Pain is decreased ap3 09:44 Drug: morphine 2 mg Route: IVP; Site: right wrist; ap3 10:49 Follow up: Response: No adverse reaction; Pain is decreased ap3 10:25 Drug: Cipro (ciprofloxacin) 500 mg Route: PO; ap3 11:26 Follow up: Response: No adverse reaction ap3 10:48 Drug: NS 0.9% 1000 ml Route: IV; Rate: 1 bolus; Site: right wrist; ap3 11:27 Follow up: Response: No adverse reaction; IV Status: Completed infusion ap3 Disposition: 01/20/21 10:12 Discharged to Home. Impression: Hydronephrosis with renal and ureteral calculous obstruction - 7 mm right proximal, moderate hydro. - Condition is Stable. - Discharge Instructions: Kidney Stones, Kidney Stones, [id number], Hydronephrosis, Dietary Guidelines to Help Prevent Kidney Stones. - Prescriptions for Tylenol- Codeine #3 300-30 mg Oral Tablet - take 2 tablets by ORAL route every 4-6 hours As needed; 26 tablet. Zofran 4 mg Oral Tablet - take 1 tablet by ORAL route every 12 hours As needed; 20 tablet. Flomax 0.4 mg Oral Capsule, Sust. Release 24 hr - take 1 capsule by ORAL route once daily 1/2 hour following the same meal each day; 30 capsule. Cipro 500 mg Oral Tablet - take 1 tablet by ORAL route every 12 hours for 7 days; 14 tablet. - Medication Reconciliation Form, Thank You Letter, Antibiotic Education, Prescription Opioid Use, Work release form form. - Follow up: Private Physician; When: 2 - 3 days; Reason: Recheck today's complaints, Continuance of care, Re-evaluation by your physician. Follow up: Socrates Munoz; When: 2 - 3 days; Reason: Recheck today's complaints, Re-evaluation by your physician. - Problem is new. - Symptoms have improved. Signatures: Dispatcher [employer] EDMS Chau Mattson MD MD cha Leal, Jahala, RN RN jl7 Marianne Wong RN RN ap3 Corrections: (The following items were deleted from the chart) 11:35 10:12 01/20/2021 10:12 Discharged to Home. Impression: Hydronephrosis with renal and ap3 ureteral calculous obstruction - 7 mm right proximal, moderate hydro. Condition is Stable. Discharge Instructions: Kidney Stones, Kidney Stones, [id number], Hydronephrosis, Dietary Guidelines to Help Prevent Kidney Stones. Prescriptions for Tylenol-Codeine #3 300-30 mg Oral Tablet - take 2 tablets by ORAL route every 4-6 hours As needed; 26 tablet, Zofran 4 mg Oral Tablet - take 1 tablet by ORAL route every 12 hours As needed; 20 tablet, Flomax 0.4 mg Oral Capsule, Sust. Release 24 hr - take 1 capsule by ORAL route once daily 1/2 hour following the same meal each day; 30 capsule, Cipro 500 mg Oral Tablet - take 1 tablet by ORAL route every 12 hours for 7 days; 14 tablet. and Forms are Medication Reconciliation Form, Thank You Letter, Antibiotic Education, Prescription Opioid Use. Follow up: Private Physician; When: 2 - 3 days; Reason: Recheck today's complaints, Continuance of care, Re-evaluation by your physician. Follow up: Socrates Munoz; When: 2 - 3 days; Reason: Recheck today's complaints, Re-evaluation by your physician. Problem is new. Symptoms have improved. maykel
--- NOTE | 2021-01-20 10:12 | ER ---
Nurse's Notes [facility] Name: Luz Maria Gonzalez Age: 50 yrs Sex: Female : 1970 Arrival Date: 01/20/2021 Time: 08:51 Bed 5 Private MD: Diagnosis: Hydronephrosis with renal and ureteral calculous obstruction-7 mm right proximal, moderate hydro Presentation: 01/20 09:00 Chief complaint: Patient states: Right flank pain radiates to RLQ x 1 hr, reports jl7 Vomited once and diarrhea x1. Coronavirus screen: Client denies travel out of the [place] in the last 14 days. At this time, the client does not indicate any symptoms associated with coronavirus-19. Ebola Screen: No symptoms or risks identified at this time. Initial Sepsis Screen: Does the patient meet any 2 criteria? No. Patient's initial sepsis screen is negative. Does the patient have a suspected source of infection? No. Patient's initial sepsis screen is negative. Risk Assessment: Do you want to hurt yourself or someone else? Patient reports no desire to harm self or others. Onset of symptoms was January 20, 2021 at 08:00. Care prior to arrival: None. 09:00 Method Of Arrival: EMS: [facility] jl7 09:00 Acuity: ROLO 3 jl7 Triage Assessment: 09:03 General: Appears in no apparent distress. uncomfortable, Behavior is calm, cooperative, jl7 appropriate for age. Pain: Complains of pain in posterior aspect of right lateral abdomen Pain radiates to right lower quadrant Pain currently is 10 out of 10 on a pain scale. Quality of pain is described as sharp, Pain began 1 hour ago. Is intermittent. Neuro: Level of Consciousness is awake, alert, obeys commands, Oriented to person, place, time, situation. Cardiovascular: Patient's skin is warm and dry. Respiratory: Airway is patent Respiratory effort is even, unlabored, Respiratory pattern is regular, symmetrical. GI: Abdomen is non-distended, Reports diarrhea, vomiting. : Reports pain in right flank(s), Denies burning with urination. Derm: Skin is pink, warm \T\ dry. 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 - Social history:: Smoking status: Patient denies any tobacco usage or history of. - Family history:: not pertinent. Screenin:06 Abuse screen: Denies threats or abuse. Denies injuries from another. Nutritional jl7 screening: No deficits noted. Tuberculosis screening: No symptoms or risk factors identified. Fall Risk IV access (20 points). Total Chirinos Fall Scale indicates No Risk (0-24 pts). Assessment: 09:06 General: See triage assessment. jl7 10:09 Reassessment: Dr. Mattson at bedside discussing results and POC. jl7 10:51 General: awaiting completion of liter bolus prior to discharging the patient. ap3 Vital Signs: 09:00 BP 148 / 86; Pulse 68; Resp 15 S; Temp 98(O); Pulse Ox 98% on R/A; Weight 81.65 kg (R); jl7 Height 5 ft. 2 in. (157.48 cm) (R); 10:09 BP 119 / 78; Pulse 64; Resp 15; Pulse Ox 100% ; jl7 10:51 BP 131 / 78; Pulse 56; Pulse Ox 99% on R/A; ap3 09:00 Body Mass Index 32.92 (81.65 kg, 157.48 cm) jl7 ED Course: 08:51 Patient arrived in ED. ds1 08:51 Chau Mattson MD is Attending Physician. maykel 09:00 Vahe Adams RN is Primary Nurse. jl7 09:01 Triage completed. jl7 09:03 Arm band placed on right wrist. jl7 09:06 Patient has correct armband on for positive identification. Placed in gown. Bed in low jl7 position. Call light in reach. Side rails up X 1. Pulse ox on. NIBP on. 09:07 Warm blanket given. Pulse ox on. NIBP on. mh5 09:07 Urine collected: clean catch specimen, cloudy. mh5 09:10 Initial lab(s) drawn, by ED staff, sent to lab. jl7 09:11 ED physician to see patient. ap3 09:11 Inserted saline lock: 20 gauge in right wrist, using aseptic technique. ap3 09:30 CT Stone Protocol In Process Unspecified. EDMS 10:11 Socrates Munoz MD is Referral Physician. maykel 11:26 No provider procedures requiring assistance completed. IV discontinued, intact, ap3 bleeding controlled, No redness/swelling at site. Pressure dressing applied. Administered Medications: 09:17 Drug: NS 0.9% 1000 ml Route: IV; Rate: 1 bolus; Site: right wrist; ap3 10:25 Follow up: Response: No adverse reaction; IV Status: Completed infusion ap3 09:43 Drug: Zofran (Ondansetron) 4 mg Route: IVP; Site: right wrist; ap3 10:49 Follow up: Response: No adverse reaction; Nausea is decreased ap3 09:43 Drug: Flomax (tamsulosin) 0.4 mg Route: PO; ap3 10:50 Follow up: Response: No adverse reaction ap3 09:43 Drug: Rocephin (cefTRIAXone) 1 grams Route: IV; Rate: per protocol; Site: right wrist; ap3 10:50 Follow up: Response: No adverse reaction ap3 11:27 Follow up: Response: No adverse reaction; IV Status: Completed infusion ap3 09:44 Drug: TORadol (ketorolac) 30 mg Route: IVP; Site: right wrist; ap3 10:49 Follow up: Response: No adverse reaction; Pain is decreased ap3 09:44 Drug: morphine 2 mg Route: IVP; Site: right wrist; ap3 10:49 Follow up: Response: No adverse reaction; Pain is decreased ap3 10:25 Drug: Cipro (ciprofloxacin) 500 mg Route: PO; ap3 11:26 Follow up: Response: No adverse reaction ap3 10:48 Drug: NS 0.9% 1000 ml Route: IV; Rate: 1 bolus; Site: right wrist; ap3 11:27 Follow up: Response: No adverse reaction; IV Status: Completed infusion ap3 Outcome: 10:12 Discharge ordered by . maykel 11:26 Discharged to home ambulatory, with family. ap3 11:26 Condition: good 11:26 Discharge instructions given to patient, significant other, Instructed on discharge instructions, follow up and referral plans. medication usage, Demonstrated understanding of instructions, follow-up care, medications, Prescriptions given X 4. 11:35 Patient left the ED. ap3 Signatures: Dispatcher [employer] EDTN Chau Mattson MD MD cha Sanford, Demi ds1 Luz Maria Hernandez Vahe Shaw RN RN jl7 Marianne Wong RN RN ap3
[2021-01-20] MEDS ORDERED: CIPROFLOXACIN HCL 500 MG TAB ONE (10:37)
[2021-01-20 11:46] VITALS: TEMP 98
[2021-01-20 11:49] VITALS: BP 131/78; O2SAT 99
== END 2021-01-20 11:35 | disposition home or self-care (01) ==
LOC: ER 08:50
DX: N13.2 Hydronephrosis with renal and ureteral calculous obstruction (principal); E11.9 Type 2 diabetes mellitus without complications; F32.9 Major depressive disorder, single episode, unspecified; E78.00 Pure hypercholesterolemia, unspecified; I10 Essential (primary) hypertension; Z79.84 Long term (current) use of oral hypoglycemic drugs
CPT/HCPCS: 96365; 85025; 80048; 36415; 81025; 80076; 81003; 83690; 76377; 74176; 96375; 99284; 96366; J2270; J0696; J7030 ×2; J2405

== ENCOUNTER 2021-01-30 08:39 | Observation (INO) | payer OTHER ==
--- OUTSIDE RECORDS SUMMARY | 2021-01-30 08:46 | XMS REPORT | Continuity of Care Document ---
:1970 Author Organization [facility] t Address [address] [place] [address] Care Team Providers Name Role Phone Austin MARI Primary Care Physician Unavailable Dennis GRANT Attending Clinician Willa GRANT S Attending Clinician Darryl CARR Attending Clinician Austin MARI Attending Clinician Unavailable Payers Payer Name Policy Type Policy Effective Date Expiration Date Sour ce Number [place] [id number] 2018 MD Mattson [employer] 00:00:00 HEALTHCARE [id number] 2018-P resentPPO Problems Condition Condition Condition Status Onset Resolution Last Treating Co mments Source Name Details Category Date Date Treatment Clinician Date 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 Family History Family Member Diagnosis Comments Start Date Stop Date Source Paternal grandfather Prostate cancer MD Mattson Social History Social Habit Start Date Stop Date Quantity Comments Source Tobacco use and 2019-05-15 2019-05-15 Never used MD Guzman on exposure 00:00:00 00:00:00 Alcohol intake 2019-05-15 2019-05-15 Current drinker MD Francy fink 00:00:00 00:00:00 of alcohol (finding) Sex [birth year] MD Guzman on 00:00:00 00:00:00 Smoking Status Start Date Stop Date Source [...] [facility] hydroCHLORO Yes 25mg Take 25 mg MD thiazide -06 by mouth Anderso (HYDRODIURI 13:16: daily. n [...] HCl [facility]an in the [facility] - [facility] Hydrochloro Hydrochloro Yes Jerod [address] [facility] thiazide thiazide [facility] Vitamin D Vitamin D Yes Jerod [address] [facility] Lisinopril Lisinopril Yes Jerod TAKE [address] [facility] Duran TABLET BY [facility] - MOUTH ONCE [facility] DAILY [facility] Metformin Metformin Yes Jerod [address] [facility] HCl HCl Duran with a [facility] - meal [facility] Ferrous Ferrous Yes Jerod as [facility] Sulfate Sulfate Duran directed [facility] - [facility] Jardiance Jardiance No Jerod [address] [facility] 07-14 [facility] - 00:00 [facility] :00 [facility] Immunizations Ordered Filled Immunization Date Status Comments [facility] e Immunization Name Name Afluria single dose Afluria single dose 2019-06-[address] [facility] Afluria Afluria 2018-11-[address] [facility] Procedures This patient has no known procedures. Encounters Start End Encounter Admission Attending Care Care Encounter Source Date/Time Date/Time Type Type Clinicians Facility Department ID 2021-01-24 2021-01-24 Outpatient [id number] 2021-01-23 2021-01-23 Outpatient [facility] [id number] [facility] 2021-01-06 2021-01-06 Outpatient [facility] [id number] [facility] 2020-12-22 2020-12-22 Outpatient [facility] [id number] [facility] 2020-12-14 2020-12-14 Outpatient [facility] [id number] [facility] 2020-12-05 2020-12-05 Outpatient [facility] [id number] [facility] 2020-11-25 2020-11-25 Outpatient [facility] [id number] [facility] 2020-08-08 2020-08-08 Outpatient [facility] [id number] [facility] 2020-08-01 2020-08-01 Outpatient [facility] [id number] [facility] 2020-07-31 2020-07-31 [facility] [id number] 04:17:00 06:08:00 Eyad Del Rosario [id number] [place] [id number] [place] [id number] 2020-05-25 2020-05-25 [facility] [id number] [facility] 08:28:00 08:28:00 [employer] [facility] Outpat[facility] ent Clinics 2020-03-22 2020-03-22 [facility] [id number] 08:00:00 08:00:00 t [employer] s - [place] [facility] Medicine l Medicine Outpati ent Clinics 2020-03-08 2020-03-08 KIM Schumacher [id number] 00:00:00 00:00:00 Serge Del Rosario [id number] [place] [id number] [place] [id number] 2020-01-19 2020-01-19 [facility] [id number] [facility] 13:45:00 13:45:00 [place] [employer] - Drive [facility] l Medicine Outpati ent Clinics 2019-09-14 2019-09-14 [facility] [id number] [address] 14:15:00 14:15:00 [place] [employer] s - Drive [facility] l Medicine Outpati ent Clinics 2019-08-17 2019-08-17 [facility] [id number] [address] 16:50:00 16:50:00 [place] [employer] - Drive [facility] Medicine Medicine Outpati ent Clinics 2019-06-02 2019-06-02 [facility] [id number] 08:45:00 08:45:00 [place] [employer] - Drive [facility] Medicine l Medicine Outpati ent Clinics 2019-04-10 2019-04-10 [facility] [id number] 12:23:00 12:23:00 [place] [employer] - Drive [facility] Medicine l Medicine Outpati ent Clinics 2019-04-02 2019-04-02 Outpatient [id number] 05:39:00 05:39:00 2019-03-31 2019-03-31 [facility] [id number] 11:59:00 11:59:00 [place] [employer] - Drive [facility] Medicine l Medicine Outpati ent Clinics 2019-03-31 2019-03-31 [facility] [id number] 11:55:00 11:55:00 [place] [employer] s - Drive [facility] l Medicine Outpati ent Clinics 2019-03-18 2019-03-18 Outpatient LATOSHA MARI MDA MDA [id number] MD 10:03:12 10:03:12 SASKIA Guzman audrey vanegas 2019-02-19 2019-02-19 [facility] [id number] 08:14:00 08:14:00 [facility] 2019-02-17 2019-02-17 [facility] [id number] 09:45:00 09:45:00 t [facility]ens [facility] L [facility] - Care [facility] 2019-01-05 2019-01-05 [facility] [id number] 16:38:00 16:38:00 [place] [address] [facility] - Drive [facility] ent Clinics 2019-01-01 2019-01-01 [facility] [id number] 09:48:00 09:48:00 t Women Womens [facility] 2018-12-31 2018-12-31 [facility] [id number] 16:40:00 16:40:00 [place] [address] [facility] 2018-12-30 2018-12-30 [facility] [id number] 11:15:00 11:15:00 t [facility] 2018-12-12 2018-12-12 [facility] [id number] 15:33:00 15:33:00 [place] [address] [facility] - Drive [facility] 2018-12-12 2018-12-12 [facility] [id number] 12:57:00 12:57:00 [place] [address] [facility] - Drive [facility] 2018-12-12 2018-12-12 [facility] [id number] 08:15:00 08:15:00 [place] [address] [facility] - Drive [facility] 2018-12-04 2018-12-04 [facility] [id number] 11:46:00 11:46:00 t [facility] Medicine Outpati ent Clinics 2018-12-03 2018-12-03 [facility] [id number] 11:55:00 11:55:00 t [facility] Outpati ent Clinics 2018-11-05 2018-11-05 [facility] [id number] 15:59:00 15:59:00 t [employer] [facility] Outpati ent Clinics 2018-11-05 2018-11-05 [facility] [id number] 10:00:00 10:00:00 t [employer] [facility] Outpati ent Clinics 2018-08-26 2018-08-26 [facility] [id number] [facility] 09:15:00 09:15:00 t [employer] [facility] Outpati ent Clinics Results This patient has no known results.
[2021-01-30 09:33] LABS: Absolute Lymphocytes (CBC) 1.3 K/uL (0.7-4.9); Basophils % 0.7 % (0-1.3); Hematocrit 41.4 % (36.0-45.0); Lymphocytes % 20.9 % (15.3-44.8); MPV 8.5 fL (7.6-11.3); RBC Red Blood Cell Count 4.62 M/uL (3.86-4.86)
[2021-01-30 09:35] LABS: Albumin 4.2 g/dL (3.4-5.0); Bilirubin Direct 0.2 mg/dL (0-0.2); Bilirubin Total 0.6 mg/dL (0.2-1.0); Potassium 3.6 mmol/L (3.5-5.1); Protein, Total 8.5 g/dL (6.4-8.2)
[2021-01-30] MEDS ORDERED: MORPHINE 4 MG/ML SYR ONE ×2 (09:46→15:14)
[2021-01-30] MEDS ORDERED: NA CHLORIDE 0.9% 1,000 ML ONE (09:47)
[2021-01-30] MEDS ORDERED: KETOROLAC 30 MG/ML INJ ONE (09:47)
[2021-01-30] MEDS ORDERED: CEFTRIAXONE/SWI 1gm 1 GM/10 ML SYR ONE (09:47)
[2021-01-30] MEDS ORDERED: ONDANSETRON 4 MG/2 ML VIAL ONE (09:47)
--- NOTE | 2021-01-30 10:18 | RAD REPORT ---
EXAM DESCRIPTION: CT - Stone Protocol - 01/30/2021 9:17 am CLINICAL HISTORY: FLANK PAIN COMPARISON: Stone Protocol dated 01/20/2021 TECHNIQUE: Axial 5 mm thick images were obtained without oral or IV contrast. The [id number] span s the entirety of the system including uppermost abdomen and lung bases. All CT scans are performed using dose optimization technique as appropriate and may include automated exposure control or mA/KV adjustment according to patient size. FINDINGS: Moderate severity right-sided hydronephrosis is present to the mid ureter level. Approxima tely 10 x 5 mm stone is present. The stone was present on the prior examination. Size differential ma y be differences in image selection and technique or interval enlargement. Severity of hydronephrosis has not changed. Nonobstructing calculus in the lower pole of the right kidney has not changed. No l eft-sided acute finding. No suspicious renal masses. Isodense masses and pyelonephritis are not excluded on a stone protocol C T scan. No significant adrenal finding. Partially contracted urinary bladder shows no suspicious find ing. Uterus is absent. No ovarian abnormality seen. Imaged portions of the liver, spleen and pancreas show no suspicious findings on non-contrast imaging . No gallbladder or biliary tree abnormality identified. No suspicious bowel findings. No hernia, mass or bulky lymphadenopathy noted. No free air, free fluid or inflammatory stranding. No significant bony abnormality. IMPRESSION: Moderate severity right-sided hydronephrosis secondary to a 10 x 5 mm mid ureter stone. Severity of hydronephrosis has not changed since January 20. Stone measures slightly larger which could b e true growth during the interval or possibly a difference in image selection or measuring technique. The nonobstructing bilateral calculi have not changed. 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 Isodense masses and pyelonephritis are not excluded on stone protocol technique.
[2021-01-30 12:08] LABS: Urine Blood 2+ (Negative); Urine Glucose Negative (Negative); Urine Protein Negative (Negative); Urine Specific Gravity 1.015 (1.005-1.030)
--- NOTE | 2021-01-30 13:02 | ER ---
Nurse's Notes [facility] Name: Luz Maria Gonzalez Age: 50 yrs Sex: Female : 1970 Arrival Date: 01/30/2021 Time: 08:41 Bed 5 Private MD: Diagnosis: Hydronephrosis with renal and ureteral calculous obstruction-10 X 5 CM MID URETER;Type 2 diabetes mellitus Presentation: 01/30 08:54 Chief complaint: Patient states: R lower back pain continues since her last visit here. ll1 Has seen her urologist, in too much pain. + nausea, slight diarrhea. Coronavirus screen: Client denies travel out of the [place] in the last 14 days. At this time, the client does not indicate any symptoms associated with coronavirus-19. Ebola Screen: Patient denies travel to an Ebola-affected area in the 21 days before illness onset. Initial Sepsis Screen: Does the patient meet any 2 criteria? No. Patient's initial sepsis screen is negative. Does the patient have a suspected source of infection? Yes: Dysuria/Frequency/Urgency/UTI. Risk Assessment: Do you want to hurt yourself or someone else? Patient reports no desire to harm self or others. Onset of symptoms was January 20, 2021. 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 - Social history:: Smoking status: Patient denies any tobacco usage or history of. - Family history:: not pertinent. Screenin:42 Abuse screen: Denies threats or abuse. Nutritional screening: No deficits noted. jd3 Tuberculosis screening: No symptoms or risk factors identified. Fall Risk Ambulatory Aid- None/Bed Rest/Nurse Assist (0 pts). Gait- Normal/Bed Rest/Wheelchair (0 pts) Mental Status- Oriented to own ability (0 pts). Total Chirinos Fall Scale indicates No Risk (0-24 pts). Assessment: 09:40 General: Appears in no apparent distress. uncomfortable, Behavior is calm, cooperative, jd3 appropriate for age. Pain: Complains of pain in low back area Quality of pain is described as sharp, tender. Neuro: Level of Consciousness is awake, alert, obeys commands, Oriented to person, place, time, situation. Cardiovascular: Denies chest pain, Capillary refill < 3 seconds Patient's skin is warm and dry. Respiratory: Airway is patent Respiratory effort is even, unlabored, Respiratory pattern is regular, symmetrical, Denies cough, shortness of breath. GI: Abdomen is non-distended, Abd is soft and non tender X 4 quads. Reports nausea. : Reports history of a kidney stone. EENT: No signs and/or symptoms were reported regarding the EENT system. Derm: Skin is intact, Skin is dry, Skin is normal, Skin temperature is warm. Musculoskeletal: Circulation, motion, and sensation intact. Range of motion: intact in all extremities. 10:40 Reassessment: Patient appears in no apparent distress at this time. Patient and/or jd3 family updated on plan of care and expected duration. Pain level reassessed. Patient is alert, oriented x 3, equal unlabored respirations, skin warm/dry/pink. 12:05 Reassessment: Patient appears in no apparent distress at this time. Patient and/or jd3 family updated on plan of care and expected duration. Pain level reassessed. Patient is alert, oriented x 3, equal unlabored respirations, skin warm/dry/pink. 13:13 Reassessment: Patient appears in no apparent distress at this time. Patient and/or jd3 family updated on plan of care and expected duration. Pain level reassessed. Patient is alert, oriented x 3, equal unlabored respirations, skin warm/dry/pink. hospitalist at bedside. 14:18 Reassessment: Patient appears in no apparent distress at this time. Patient and/or jd3 family updated on plan of care and expected duration. Pain level reassessed. Patient is alert, oriented x 3, equal unlabored respirations, skin warm/dry/pink. reporting pain, provider notified. 16:05 Reassessment: Patient appears in no apparent distress at this time. Patient and/or jd3 family updated on plan of care and expected duration. Pain level reassessed. Patient is alert, oriented x 3, equal unlabored respirations, skin warm/dry/pink. Vital Signs: 08:54 BP 141 / 87; Pulse 71; Resp 16; Temp 97.5; Pulse Ox 96% ; Weight 80.74 kg; Height 5 ft. ll1 2 in. (157.48 cm); Pain 9/10; 09:42 BP 140 / 86; Pulse 69; Resp 17 S; Pulse Ox 100% on R/A; jd3 10:40 BP 117 / 72; Pulse 62; Resp 16 S; Pulse Ox 96% on R/A; jd3 12:05 BP 128 / 82; Pulse 59; Resp 17 S; Pulse Ox 100% on R/A; jd3 13:13 BP 135 / 85; Pulse 69; Resp 17 S; Pulse Ox 100% on R/A; jd3 14:19 BP 119 / 73; Pulse 63; Resp 17 S; Pulse Ox 99% on R/A; jd3 16:05 BP 102 / 62; Pulse 63; Resp 17 S; Pulse Ox 99% on R/A; jd3 08:54 Body Mass Index 32.56 (80.74 kg, 157.48 cm) ll1 ED Course: 08:41 Patient arrived in ED. bp1 08:50 Chau Mattson MD is Attending Physician. maykel 08:55 Triage completed. ll1 08:56 Arm band placed on Patient placed in an exam room, on a stretcher. ll1 09:09 Marcello Tellez, VALENTÍN is Primary Nurse. jd3 09:09 Inserted saline lock: 20 gauge in right forearm, using aseptic technique. Blood mt collected. 09:17 CT Stone Protocol In Process Unspecified. EDMS 09:42 Patient has correct armband on for positive identification. Placed in gown. Bed in low jd3 position. Call light in reach. Side rails up X 1. Adult w/ patient. Pulse ox on. NIBP on. 12:55 Rodolfo Parish is Hospitalizing Provider. maykel 16:05 No provider procedures requiring assistance completed. Patient admitted, IV remains in jd3 place. Administered Medications: 09:38 Drug: TORadol (ketorolac) 30 mg Route: IVP; Site: right forearm; jd3 10:30 Follow up: Response: No adverse reaction jd3 09:38 Drug: Rocephin (cefTRIAXone) 1 grams Route: IV; Rate: per protocol; Site: right forearm;jd3 10:30 Follow up: Response: No adverse reaction; IV Status: Completed infusion jd3 09:38 Drug: morphine 4 mg Route: IVP; Site: right forearm; jd3 10:30 Follow up: Response: No adverse reaction; RASS: Alert and Calm (0) jd3 09:38 Drug: Zofran (Ondansetron) 4 mg Route: IVP; Site: right forearm; jd3 10:30 Follow up: Response: No adverse reaction jd3 09:39 Drug: NS 0.9% 1000 ml Route: IV; Rate: 1 bolus; Site: right forearm; jd3 10:30 Follow up: Response: No adverse reaction; IV Status: Completed infusion jd3 15:01 Drug: morphine 4 mg Route: IVP; Site: right antecubital; jd3 16:00 Follow up: Response: No adverse reaction jd3 Outcome: 13:01 Decision to Hospitalize by Provider. maykel 16:05 Admitted to Med/surg accompanied by tech, via wheelchair, room 207, with chart, Report jd3 called to Aileen LAURA 16:05 Condition: stable 16:05 Instructed on the need for admit, Demonstrated understanding of instructions. 17:14 Patient left the ED. jd3 Signatures: Dispatcher [employer] Chau Vieyra MD MD cha Thompson, Marcello Orr mt RN RN jd3 Bc Garcia RN RN ll1 Annabelle Laguerre
--- NOTE | 2021-01-30 13:02 | EDPHYS ---
Physician Documentation [facility] Name: Luz Maria Gonzalez Age: 50 yrs Sex: Female : 1970 Arrival Date: 01/30/2021 Time: 08:41 Bed 5 Private MD: Chau Hill HPI: 01/30 11:08 This 50 yrs old Female presents to ER via Ambulatory with complaints of maykel Possible Kidney Stone. 11:08 The patient presents with abdominal pain in the right upper quadrant, right lower maykel quadrant. Onset: The symptoms/episode began/occurred 2 week(s) ago. The patient complains of pain in the right mid back and right low back. The pain does not radiate. Onset: The symptoms/episode began/occurred 5 day(s) ago. Modifying factors: The symptoms are alleviated by nothing. the symptoms are aggravated by nothing. movement. Associated signs and symptoms: The patient has no apparent associated signs or symptoms. The symptoms radiate to the right flank. Associated signs and symptoms: Pertinent positives: nausea. Modifying factors: The symptoms are alleviated by nothing, the symptoms are aggravated by nothing. 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 - Social history:: Smoking status: Patient denies any tobacco usage or history of. - Family history:: not pertinent. ROS: 11:08 Constitutional: Negative for fever, chills, and weight loss, Eyes: Negative for injury, maykel pain, redness, and discharge, ENT: Negative for injury, pain, and discharge, Neck: Negative for injury, pain, and swelling, Cardiovascular: Negative for chest pain, palpitations, and edema, Respiratory: Negative for shortness of breath, cough, wheezing, and pleuritic chest pain, : Negative for injury, bleeding, discharge, and swelling, MS/Extremity: Negative for injury and deformity, Skin: Negative for injury, rash, and discoloration, Neuro: Negative for headache, weakness, numbness, tingling, and seizure, Psych: Negative for depression, anxiety, suicide ideation, homicidal ideation, and hallucinations, Allergy/Immunology: Negative for hives, rash, and allergies, Endocrine: Negative for neck swelling, polydipsia, polyuria, polyphagia, and marked weight changes, Hematologic/Lymphatic: Negative for swollen nodes, abnormal bleeding, and unusual bruising. 11:08 Abdomen/GI: Positive for abdominal pain, nausea, of the posterior aspect of right lateral abdomen, anterior aspect of right lateral abdomen, right upper quadrant and right lower quadrant. Exam: 11:11 Constitutional: This is a well developed, well nourished patient who is awake, alert, maykel and in no acute distress. Head/Face: Normocephalic, atraumatic. Eyes: Pupils equal round and reactive to light, extra-ocular motions intact. Lids and lashes normal. Conjunctiva and sclera are non-icteric and not injected. Cornea within normal limits. Periorbital areas with no swelling, redness, or edema. ENT: Nares patent. No nasal discharge, no septal abnormalities noted. Tympanic membranes are normal and external auditory canals are clear. Oropharynx with no redness, swelling, or masses, exudates, or evidence of obstruction, uvula midline. Mucous membranes moist. Neck: Trachea midline, no thyromegaly or masses palpated, and no cervical lymphadenopathy. Supple, full range of motion without nuchal rigidity, or vertebral point tenderness. No Meningismus. Chest/axilla: Normal chest wall appearance and motion. Nontender with no deformity. No lesions are appreciated. Cardiovascular: Regular rate and rhythm with a normal S1 and S2. No gallops, murmurs, or rubs. Normal PMI, no JVD. No pulse deficits. Respiratory: Lungs have equal breath sounds bilaterally, clear to auscultation and percussion. No rales, rhonchi or wheezes noted. No increased work of breathing, no retractions or nasal flaring. Female : Normal external genitalia. Skin: Warm, dry with normal turgor. Normal color with no rashes, no lesions, and no evidence of cellulitis. MS/ Extremity: Pulses equal, no cyanosis. Neurovascular intact. Full, normal range of motion. Neuro: Awake and alert, GCS 15, oriented to person, place, time, and situation. Cranial nerves II-XII grossly intact. Motor strength 5/5 in all extremities. Sensory grossly intact. Cerebellar exam normal. Normal gait. Psych: Awake, alert, with orientation to person, place and time. Behavior, mood, and affect are within normal limits. 11:11 Abdomen/GI: Inspection: distension, Bowel sounds: active, all quadrants, Palpation: mild abdominal tenderness, in all quadrants, in the right upper quadrant and right lower quadrant, Liver: no appreciated palpable abnormalities, Hernia: not appreciated. Vital Signs: 08:54 BP 141 / 87; Pulse 71; Resp 16; Temp 97.5; Pulse Ox 96% ; Weight 80.74 kg; Height 5 ft. ll1 2 in. (157.48 cm); Pain 9/10; 09:42 BP 140 / 86; Pulse 69; Resp 17 S; Pulse Ox 100% on R/A; jd3 10:40 BP 117 / 72; Pulse 62; Resp 16 S; Pulse Ox 96% on R/A; jd3 12:05 BP 128 / 82; Pulse 59; Resp 17 S; Pulse Ox 100% on R/A; jd3 13:13 BP 135 / 85; Pulse 69; Resp 17 S; Pulse Ox 100% on R/A; jd3 14:19 BP 119 / 73; Pulse 63; Resp 17 S; Pulse Ox 99% on R/A; jd3 16:05 BP 102 / 62; Pulse 63; Resp 17 S; Pulse Ox 99% on R/A; jd3 08:54 Body Mass Index 32.56 (80.74 kg, 157.48 cm) ll1 MDM: 09:11 Patient medically screened. maykel 11:11 Differential diagnosis: nephrolithiasis, pyelonephritis, diverticulitis, pancreatitis, maykel cholecystitis, Cholelithiasis, Irritable bowel syndrome, non-specific abd pain, urinary tract infection. Data reviewed: vital signs, nurses notes, lab test result(s), radiologic studies, CT scan, plain films. Data interpreted: residential monitor: not applicable for this patient encounter. rate is 62 beats/min, rhythm is regular, Pulse oximetry: on room air is 96 %. Test interpretation: by ED physician or midlevel provider:. Counseling: I had a detailed discussion with the patient and/or guardian regarding: the historical points, exam findings, and any diagnostic results supporting the discharge/admit diagnosis, lab results, radiology results. 01/30 08:54 Order name: Basic Metabolic Panel [facility] 01/30 08:54 Order name: CBC with Diff; Complete Time: 11:06 [facility] 01/30 08:54 Order name: Hepatic Function [facility] 01/30 08:54 Order name: Lipase; Complete Time: 11:06 [facility] 01/30 08:54 Order name: Urine Culture [facility] 01/30 08:54 Order name: Basic Metabolic Panel; Complete Time: 11:06 [facility] 01/30 08:54 Order name: CT Stone Protocol; Complete Time: 11:06 [facility] 01/30 08:54 Order name: Liver (Hepatic) Function; Complete Time: 11:06 [facility] 01/30 12:08 Order name: Urine Dipstick-Ancillary [facility] 01/30 14:07 Order name: Lipase [facility] 01/30 14:07 Order name: Lipase [facility] 01/30 14:21 Order name: COVID-19 : Document "Date of Symptom Onset" if Symptomatic. [facility] 01/30 14:45 Order name: CORONAVIRUS [facility] 01/30 15:34 Order name: SARS-COV-2 RT PCR [facility] 01/30 08:54 Order name: IV Saline Lock; Complete Time: 09:09 [facility] 01/30 08:54 Order name: Labs collected and sent; Complete Time: 09:09 [facility] 01/30 08:54 Order name: Urine Dipstick-Ancillary (obtain specimen); Complete Time: 12:39 [facility] 01/30 13:17 Order name: Diet Ada 2000 Gio; Complete Time: 13:18 [facility] 01/30 13:23 Order name: Consistent Carb (ADA) 2000 Gio EDMS Administered Medications: 09:38 Drug: TORadol (ketorolac) 30 mg Route: IVP; Site: right forearm; jd3 10:30 Follow up: Response: No adverse reaction jd3 09:38 Drug: Rocephin (cefTRIAXone) 1 grams Route: IV; Rate: per protocol; Site: right forearm;jd3 10:30 Follow up: Response: No adverse reaction; IV Status: Completed infusion jd3 09:38 Drug: morphine 4 mg Route: IVP; Site: right forearm; jd3 10:30 Follow up: Response: No adverse reaction; RASS: Alert and Calm (0) jd3 09:38 Drug: Zofran (Ondansetron) 4 mg Route: IVP; Site: right forearm; jd3 10:30 Follow up: Response: No adverse reaction jd3 09:39 Drug: NS 0.9% 1000 ml Route: IV; Rate: 1 bolus; Site: right forearm; jd3 10:30 Follow up: Response: No adverse reaction; IV Status: Completed infusion jd3 15:01 Drug: morphine 4 mg Route: IVP; Site: right antecubital; jd3 16:00 Follow up: Response: No adverse reaction jd3 Disposition: 01/30/21 13:01 Hospitalization ordered by [facility] for Observation. Preliminary diagnosis are Hydronephrosis with renal and ureteral calculous obstruction - 10 X 5 CM MID URETER, Type 2 diabetes mellitus. - Bed requested for Telemetry/MedSurg (observation). - Status is Observation. jd3 - Condition is Stable. - Problem is new. - Symptoms have improved. Signatures: Dispatcher [employer] EDMS Karla Siddiqui Corey, MD MD cha Davies, Jonathon, RN RN jd3 Lewis, Lynsay, RN RN ll1 Corrections: (The following items were deleted from the chart) 15:43 13:01 Hospitalization Ordered by [facility] for Observation. Preliminary diagnosis bd is Hydronephrosis with renal and ureteral calculous obstruction - 10 X 5 CM MID URETER; Type 2 diabetes mellitus. Bed requested for Telemetry/MedSurg (observation). Status is Observation. Condition is Stable. Problem is new. Symptoms have improved. [facility] 17:14 15:43 01/30/2021 13:01 Hospitalization Ordered by [facility] for Observation. jd3 Preliminary diagnosis is Hydronephrosis with renal and ureteral calculous obstruction - 10 X 5 CM MID URETER; Type 2 diabetes mellitus. Bed requested for Telemetry/MedSurg (observation). Status is Observation. Condition is Stable. Problem is new. Symptoms have improved. bd
[2021-01-30] MEDS ORDERED: HYDRALAZINE HCL 20 MG/ML VIAL IV PRN (14:08)
--- NOTE | 2021-01-30 14:22 | P.HP ---
Certification for Inpatient Patient admitted to: Observation With expected LOS: <2 Midnights Patient will require the following post-hospital care: None Practitioner: I am a practitioner with admitting privileges, knowledge of patient current condition, hospital course, and medical plan of care. Services: Services provided to patient in accordance with Admission requirements found in Title 42 Section 412.3 of the Code of Federal Regulations <Haris Contreras - Last Filed: 01/30/21 15:26> Patient admitted to: Observation <NancyTanmay reddy - Last Filed: 01/30/21 17:14> Patient History Date of Service: 01/30/21 Reason for admission: Right flank pain History of Present Illness: Patient is a 50-year-old female with a past medical history significant for hypertension, DM 2, HLD, hypertension, Depression, Uterine fibroid who presents with complaint of right flank pain onset 10 days ago. Patient rated pain as 10/ 10 in severity and described pain as cramping\throbbing in quality. Patient indicated that pain radiates to her right lower quadrant as well as her right groin area. Patient reported associated signs and symptoms of nausea and vomiting. Patient indicated that pain is aggravated with movement and pressure on the right flank and relieved by nothing. Patient denies any other signs and symptoms. Patient reported that she was in the hospital 10 days ago for similar symptoms and was discharged home with antibiotics. Patient followed up with a urologist after discharge. She indicated that she was placed on a medication that could help her pass the stone. Patient reported that she was informed to come to the ER if symptoms became worse. Patient decided to present to the hospital due to worsening symptoms. Home medications list reviewed: No - Social History Smoking Status: Never smoker Alcohol use: Yes CD- Drugs: No Caffeine use: No Place of Residence: Home <Haris Contreras Last Filed: 01/30/21 15:26> Date of Service: 01/30/21 - Past Medical/Surgical History Diabetic: No Past Medical History: Patient denies medical history Past Surgical History: Reviewed- Non-Contributory Psychosocial/ Personal History: patient lives at home - Family History Family History: Reviewed- Non-Contributory <MartinaTanmay - Last Filed: 01/30/21 17:14> Allergies No Known Allergies Allergy (Unverified 08/02/17 08:53) Review of Systems General: Unremarkable Eyes: Unremarkable ENT: Unremarkable Respiratory: Unremarkable Cardiovascular: Unremarkable Gastrointestinal: Nausea, Vomiting, Abdominal Pain, Other (Right Flank pain ) Genitourinary: Unremarkable Musculoskeletal: Unremarkable Integumentary: Unremarkable Neurological: Unremarkable Lymphatics: Unremarkable <DianePeeverena Davies - Last Filed: 01/30/21 15:26> Physical Examination - Physical Exam General: Alert, In no apparent distress, Oriented x3 HEENT: Atraumatic, PERRLA, Mucous membr. moist/pink, EOMI, Sclerae nonicteric Neck: Supple, 2+ carotid pulse no bruit, No LAD, Without JVD or thyroid abnormality Respiratory: Clear to auscultation bilaterally, Normal air movement Cardiovascular: No edema, Normal pulses, Regular rate/rhythm, Normal S1 S2 Capillary refill: Brisk Gastrointestinal: Normal bowel sounds, Tenderness Musculoskeletal: No clubbing, No tenderness Integumentary: No rashes, No significant lesion Neurological: Normal gait, Normal speech, Normal strength at 5/5 x4 extr, Normal tone, Normal affect Lymphatics: No axilla or inguinal lymphadenopathy External genitalia: Deferred Rectal: Deferred - Studies Laboratory Data (last 24 hrs) 01/30/21 09:10: WBC 6.30 D, Hgb 14.3, Hct 41.4, Plt Count 290 01/30/21 09:10: Sodium 137, Potassium 3.6, BUN 22 H, Creatinine 0.70, Glucose 113 H, Total Bilirubin 0.6, AST 23, ALT 38, Alkaline Phosphatase 104, Lipase 577 H <Haris Contreras - Last Filed: 01/30/21 15:26> - Studies Laboratory Data (last 24 hrs) 01/30/21 09:10: WBC 6.30 D, Hgb 14.3, Hct 41.4, Plt Count 290 01/30/21 09:10: Sodium 137, Potassium 3.6, BUN 22 H, Creatinine 0.70, Glucose 113 H, Total Bilirubin 0.6, AST 23, ALT 38, Alkaline Phosphatase 104, Lipase 577 H <Tanmay Mack - Last Filed: 01/30/21 17:14> Assessment and Plan - Plan --Right Ureterolithiasis. CT Imaging indicates Moderate severity right-sided hydronephrosis secondary to a 10 x 5 mm mid ureter stone. Urology consulted. Plans for surgical procedure in a.m.. Will keep patient NPO after midnight. Patient placed on Flomax. UA does not indicate a UTI. Continue IV hydration. -- Acute pain. Will manage pain with current pain medication regimen. --Nausea and vomiting. Antiemetics on board. Continue IV hydration. --DM 2. BS monitoring with sliding scale insulin. --Hypertension. Stable. Will manage blood pressure with hydralazine p.r.n.. --HLD. Continue home medication. --Depression. Continue home medication when available. -- History of uterine fibroid. Status unknown. Continue supportive care. --DVT prophylaxis with SCDs. Discharge Plan: Home Plan to discharge in: 48 Hours - Advance Directives Does patient have a Living Will: No Does patient have a Durable POA for Healthcare: No - Code Status/Comfort Care Code Status Assessed: Yes Code Status: Full Code Critical Care: No <Haris Contreras - Last Filed: 01/30/21 15:26> - Plan agree with plan Time Spent Managing Pts Care (In Minutes): 55 <Tanmay Mack - Last Filed: 01/30/21 17:14>
[2021-01-30] MEDS ORDERED: ACETAMINOPHEN 500 MG TAB PO PRN (16:14)
[2021-01-30] MEDS ORDERED: GLUCAGON 1 MG/VIAL IM PRN (16:14)
[2021-01-30] MEDS ORDERED: ONDANSETRON 4 MG/2 ML VIAL IV PRN (16:14)
[2021-01-30] MEDS ORDERED: D50W 25 GM/50 ML SYRINGE IV PRN (16:14)
[2021-01-30] MEDS: INSULIN -REGULAR HUMAN 50 UNIT/0.5 ML ML SQ SCH ×2 (16:30→20:17)
[2021-01-30 17:39] VITALS: BMI 32.7
[2021-01-30 17:49] LABS: Protime INR 1.08
[2021-01-30] MEDS: NA CHLORIDE 0.9% 1,000 ML IV SCH (18:40)
[2021-01-30 18:59] LABS: Urine Appearance CLOUDY (Clear); Urine Bilirubin NEGATIVE (Negative); Urine Blood TRACE (Negative); Urine Color YELLOW (Yellow); Urine Glucose NEGATIVE (Negative); Urine Protein NEGATIVE (Negative); Urine Urobilinogen 0.2 mg/dL (0.2-1.0)
[2021-01-30 19:03] LABS: Urine Microscopic Reflex ORDER UMIC
[2021-01-30 20:18] LABS: Calcium Oxalate Crystals- Ur FEW (NONE SEEN); Urine Bacteria <20 /HPF (<20); Urine RBC <5 /HPF (NONE SEEN); Urine Urothelial Cells <5 /HPF (NONE SEEN)
[2021-01-30] MEDS ORDERED: PNEUMOCOCCAL VACCINE 0.5 ML IMVAC ONE (21:00)
[2021-01-30] MEDS: MORPHINE 4 MG/ML SYR IV PRN (21:19)
[2021-01-31] MEDS: MORPHINE 4 MG/ML SYR IV PRN ×3 (03:05→13:58)
[2021-01-31] MEDS: NA CHLORIDE 0.9% 1,000 ML IV SCH ×3 (04:02→14:05)
[2021-01-31 06:20] LABS: Absolute Lymphocytes (CBC) 1.9 K/uL (0.7-4.9); Basophils % 0.8 % (0-1.3); Hematocrit 34.7 % (36.0-45.0); Lymphocytes % 31.6 % (15.3-44.8); MPV 8.1 fL (7.6-11.3); RBC Red Blood Cell Count 3.82 M/uL (3.86-4.86)
[2021-01-31 06:40] LABS: BUN Blood Urea Nitrogen 14 mg/dL (7-18); Bicarbonate 28 mmol/L (21-32); Glucose Level 108 mg/dL (74-106); HDL Cholesterol 55 mg/dL (40-60); LDL Cholesterol, Calculated 61 (<130); Lipase 682 U/L (73-393); Magnesium 1.7 mg/dL (1.8-2.4); Potassium 3.7 mmol/L (3.5-5.1); Sodium Level 142 mmol/L (136-145)
[2021-01-31] MEDS: INSULIN -REGULAR HUMAN 50 UNIT/0.5 ML ML SQ SCH ×3 (07:30→16:30)
[2021-01-31] MEDS ORDERED: TAMSULOSIN 0.4 MG SR CAP PO SCH (09:00)
[2021-01-31] MEDS ORDERED: MAGNESIUM SULFATE 1 gm IVPB 1 GM/100 ML BAG IV ONE (09:00)
[2021-01-31] MEDS ORDERED: CEFAZOLIN/SWI 2gm 2 GM/20 ML SYR IV ONE (10:30)
--- NOTE | 2021-01-31 10:43 | P.PN ---
Subjective Date of Service: 01/31/21 Primary Care Provider: Dr. Duran Chief Complaint: Right flank pain Subjective: Improving, Doing well Physical Examination - Vital Signs Temperature: 97.7 F Blood Pressure: 129/73 Pulse: 55 Respirations: 18 Pulse Ox (%): 97 Assessment & Plan Discharge Plan: Home Plan to discharge in: 24 Hours Physician Review Additional Text: Physical Exam: GENERAL: The patient is a well-developed, well-nourished, in no apparent distress. Alert and oriented x3. VITAL SIGNS: Reviewed HEENT: Head is normocephalic and atraumatic. Extraocular muscles are intact. Pupils are equal, round, and reactive to light and accommodation. Nares appeared normal. Mouth is well hydrated and without lesions. Mucous membranes are moist. NECK: Supple. No carotid bruits. No lymphadenopathy or thyromegaly. LUNGS: Clear to auscultation. No crackles or wheezes are heard. HEART: Regular rate and rhythm, no appreciable gallops, rubs, murmurs or extra heart sounds ABDOMEN: Abdominal sounds normal. No significant abdominal pain noted at this time. EXTREMITIES: Without any cyanosis, clubbing, rash, lesions or peripheral edema. NEUROLOGIC: The patient is oriented to person, place and time. Strength and sensation are grossly intact. Face is symmetric. SKIN: Normal color, turgor and temperature. No ulcerations or rashes noted. Impression: Flank pain secondary to right ureterolithiasis(10 x 5 mm mid ureteral stone) with moderate right-sided hydronephrosis Diabetes mellitus type 2 Hypertension Hyperlipidemia Depression Plan: Flank pain secondary to right ureterolithiasis(10 x 5 mm mid ureteral stone) with moderate right-sided hydronephrosis: Patient remains n.p.o. at this time. Spoke with urology yesterday. Urological intervention is planned for today. Await findings and intervention. Continue with current pain control medication. Continue IV fluids. Continue Flomax. Anticipate improvement over the next 24 hours with likely discharge later today after procedure. Diabetes mellitus type 2: Hold glipizide and Metformin at this time. Continue insulin sliding scale. Monitor closely. Hypertension: Continue medicationlisinopril. Hold hydrochlorothiazide Hyperlipidemia: Continue home medicationstatin medication Depression: Continue home medicationPaxil Code Status: Full Code DVT prophylaxis: Lovenox Advanced Care Planning-30 minutes: Plan of care for the patient's discharge was discussed in detail with the patient and at bedside. Time Spent Managing Pts Care (In Minutes): 55
[2021-01-31] MEDS ORDERED: MIDAZOLAM HCL 2 MG/2 ML INJ ONE (10:55)
[2021-01-31] MEDS ORDERED: KCL 20 MEQ/100 mL IVPB 20 MEQ/100 ML BAG IV SCH (11:00)
[2021-01-31] MEDS ORDERED: LIDOCAINE 1% MPF 5 ML VIAL ONE (11:01)
[2021-01-31] MEDS ORDERED: propofoL 200 MG/20 ML VIAL IV ONE (11:01)
[2021-01-31] MEDS ORDERED: FENTANYL CITR 100 MCG/2 ML ONE (11:01)
[2021-01-31] MEDS ORDERED: KETOROLAC 30 MG/ML INJ ONE (11:13)
[2021-01-31] MEDS ORDERED: dexAMETHasone 10 MG/ML VIAL ONE (11:13)
[2021-01-31] MEDS ORDERED: ONDANSETRON 4 MG/2 ML VIAL ONE (11:13)
--- NOTE | 2021-01-31 11:25 | RAD REPORT ---
EXAM DESCRIPTION: RAD - Urethrocystogrphy Retrograde - 01/31/2021 11:19 am CLINICAL HISTORY: ICD N 20.0 FINDINGS: 7 fluoroscopic spot images obtained. Fluoroscopy time 0.1 minutes The right ureter was cannulated and contrast administered. Subsequently an ureteral stent was placed. Examination was performed by Dr Munoz
[2021-01-31 11:36] VITALS: TEMP 97.3; O2SAT 100
[2021-01-31] MEDS ORDERED: PHENAZOPYRIDINE 100MG TAB PO ONE (11:41)
[2021-01-31] MEDS ORDERED: POTASSIUM CL SA 10 MEQ TAB PO ONE (13:00)
[2021-01-31] MEDS ORDERED: DOCUSATE NA 100 MG CAP PO SCH (14:00)
--- NOTE | 2021-01-31 14:33 | CON ---
Date of consultation: 01/31/2021 Reason For Consultation: Right flank pain and obstructive ureterolithiasis. History Of Present Illness: Ms. Gonzalez is a 50-year-old woman with a past medical history significant for hypertension, type 2 diabetes, hyperlipidemia, depression, and a uterine fibroid, who presented with right severe flank pain. The pain initially occurred nearly 2 weeks ago on Saturday and resulted in an Emergency Department presentation, where a CT scan was performed. It revealed the presence of an approximately 7 mm right proximal ureteral calculus, and she saw nurse practitioner, Krupa Ramon in the Urology Clinic subsequent to that. They discussed potential observation with expectant management of the calculus at that visit and she was scheduled for followup about 2 weeks later, but in the interim, she presented again to the Emergency Department with severe 10/10 pain that was cramping and throbbing/colicky in nature. She had some associated nausea and retching, but denied any fever or chills. Of note, she recalls 6 or 7 years ago having an episode of gross hematuria that was partially evaluated in an Emergency Department in another [facility] where they presumed she had passed a stone. There is no specific documentation of the stone being passed and no calculus was collected. Because of the severity of her pain, she was admitted and because of the size of the stone where she has a less than 10% to 30% chance of successful spontaneous passage, she desires placement of a right ureteral stent. Past Medical History: As above. Past Surgical History: None. Social History: She is a never smoker and utilizes no recreational drugs other than alcohol. Physical Examination: The patient is alert, awake, oriented x3 and in no acute distress. She is comfortable and well-appearing at this time. There is no dyspnea or sign of respiratory distress or use of accessory muscles to breathe. She is pleasant and cooperative. Lying in a stretcher. Laboratory Assessment: Creatinine 0.7, within normal limits and likely at a reasonable baseline. Assessment And Recommendation: This is a 50-year-old woman with a prior episode of gross hematuria, potentially a recurrent stone former, now with a right 10-mm ureteral calculus and renal colic. I counseled the patient that given the likely less than 10% chance of successful spontaneous passage, that she would benefit from placement of a ureteral stent. I explained that because the situation is not optimized with a result of a urine culture available, laser lithotripsy would not be recommended at this time to attempt to avoid causing sepsis. I did explain the potential side effects of a stent to include stent discomfort as well as urinary frequency and we discussed the potential complications of a procedure to include infection and urethral stricture, which is very low. The patient agreed and was consented accordingly for cystoscopy and right ureteral stent placement, possible right percutaneous nephrostomy tube placement if we are unsuccessful in placement of the stent. NICOLE/LIANA Voice ID: [id number] Report ID: [id number] MTDD
--- NOTE | 2021-01-31 15:43 | P.DS ---
Admission Date: 01/30/21 Discharge Date: 01/31/21 Primary Care Provider: Dr. Duran Disposition: ROUTINE DISCHARGE Discharge Condition: GOOD Reason for Admission: Right flank pain Consultations: Urology-Dr. Munoz Procedures: COVID: Negative CT scan: FINDINGS: Moderate severity right-sided hydronephrosis is present to the mid ureter level. Approximately 10 x 5 mm stone is present. The stone was present on the prior examination. Size differential may be differences in image selection and technique or interval enlargement. Severity of hydronephrosis has not changed. Nonobstructing calculus in the lower pole of the right kidney has not changed. No left-sided acute finding. No suspicious renal masses. Isodense masses and pyelonephritis are not excluded on a stone protocol CT scan. No significant adrenal finding. Partially contracted urinary bladder shows no suspicious finding. Uterus is absent. No ovarian abnormality seen. Imaged portions of the liver, spleen and pancreas show no suspicious findings on non-contrast imaging. No gallbladder or biliary tree abnormality identified. No suspicious bowel findings. No hernia, mass or bulky lymphadenopathy noted. No free air, free fluid or inflammatory stranding. No significant bony abnormality. IMPRESSION: Moderate severity right-sided hydronephrosis secondary to a 10 x 5 mm mid ureter stone. Severity of hydronephrosis has not changed since January 20. Stone measures slightly larger which could be true growth during the interval or possibly a difference in image selection or measuring technique. The nonobstructing bilateral calculi have not changed. No acute GI/ OIL TESTER process. Isodense masses and pyelonephritis are not excluded on stone protocol technique. Surgery: Cystoscopy, Right Ureter Stent placement Medical Problem List: Flank pain secondary to right ureterolithiasis(10 x 5 mm mid ureteral stone) with moderate right-sided hydronephrosis status post cystoscopy with right stent placement Diabetes mellitus type 2 Hypertension Hyperlipidemia Depression Brief History of Present Illness: 50-year-old female with a past medical history significant for hypertension, type 2 diabetes, hyperlipidemia, depression, and a uterine f ibroid, who presented with right severe flank pain. The pain initially occurred nearly 2 weeks ago on Saturday and resulted in an Emergency Department presentation, where a CT scan was performed. It revealed the presence of an approximately 7 mm right proximal ureteral calculus, and she saw nurse practitioner, Krupa Ramon in the Urology Clinic subsequent to that. They discussed potential observation with expectant management of the calculus at that visit and she was scheduled for followup about 2 weeks later, but in the interim, she presented again to the Emergency Department with severe 10/10 pain that was cramping and throbbing/colicky in nature. She had some associated nausea and retching, but denied any fever or chills. Of note, she recalls 6 or 7 years ago having an episode of gross hematuria that was partially evaluated in an Emergency Department in another city where they presumed she had passed a stone. There is no specific documentation of the stone being passed and no calculus was collected. Because of the severity of her pain, she was admitted for further evaluation and treatment. Hospital Course: Patient presented with flank pain. This was secondary to right ureterolithiasis(10 x 5 mm mid ureteral stone) with moderate right-sided hydronephrosis. Patient was seen and evaluated by Urology. Urology recommended intervention. Cystoscopy and right stent was placed. Patient tolerated procedure well. Postoperatively patient without significant pain. Patient will follow up with urology in 1-2 weeks to follow up this hospitalization. Patient will likely require lithotripsy. Patient to follow up with Urology for definitive treatment. Patient is to monitor for any fever, chills, or worsening pain. Patient with history of diabetes mellitus type 2, hypertension, hyperlipidemia, and depression. Patient will resume her home medications. Recommend follow up with her PCP to further address. Vital Signs/Physical Exam: Temp Pulse Resp BP Pulse Ox 97.3 F 78 16 137/74 97 01/31/21 12:00 01/31/21 12:00 01/31/21 13:58 01/31/21 12:00 01/31/21 13:58 General: Alert, In no apparent distress, Oriented x3, Cooperative HEENT: Atraumatic Neck: Supple Respiratory: Clear to auscultation bilaterally, Normal air movement Cardiovascular: Normal pulses, Regular rate/rhythm Gastrointestinal: Normal bowel sounds, Soft and benign, Non-distended, No tenderness, No masses, No rebound, No guarding Musculoskeletal: No erythema, No tenderness, No warmth Integumentary: No tenderness/swelling Neurological: Normal speech, Normal strength at 5/5 x4 extr, Normal tone, Normal affect Laboratory Data at Discharge: WBC 6.00 K/uL (4.3-10.9) 01/31/21 05:52 Hgb 11.8 g/dL (12.0-15.0) L D 01/31/21 05:52 Hct 34.7 % (36.0-45.0) L D 01/31/21 05:52 Plt Count 253 K/uL (152-406) 01/31/21 05:52 PT 12.4 SECONDS (9.5-12.5) 01/30/21 17:31 INR 1.08 01/30/21 17:31 Sodium 142 mmol/L (136-145) 01/31/21 05:52 Potassium 3.7 mmol/L (3.5-5.1) 01/31/21 05:52 BUN 14 mg/dL (7-18) 01/31/21 05:52 Creatinine 0.47 mg/dL (0.55-1.3) L 01/31/21 05:52 Glucose 108 mg/dL (74-106) H 01/31/21 05:52 Magnesium 1.7 mg/dL (1.8-2.4) L 01/31/21 05:52 Total Bilirubin 0.6 mg/dL (0.2-1.0) 01/30/21 09:10 AST 23 U/L (15-37) 01/30/21 09:10 ALT 38 U/L (12-78) 01/30/21 09:10 Alkaline Phosphatase 104 U/L (45-117) 01/30/21 09:10 Triglycerides 108 mg/dL (<150) 01/31/21 05:52 Cholesterol 138 mg/dL (<200) 01/31/21 05:52 HDL Cholesterol 55 mg/dL (40-60) 01/31/21 05:52 Cholesterol/HDL Ratio 2.51 01/31/21 05:52 Lipase 682 U/L (73-393) H 01/31/21 05:52 Home Medications: Atorvastatin Calcium 1 tab PO BEDTIME 01/30/21 Cholecalciferol (Vitamin D3) [Vitamin D 1000 Iu Tab*] 1 tab PO DAILY 01/30/21 Glipizide [Glipizide Xl] 1 tab PO DAILY 01/30/21 Lisinopril [Zestril] 1 tab PO DAILY 01/30/21 Metformin HCl 1,000 mg PO BID 01/30/21 PARoxetine HCL [Paxil*] 1 tab PO DAILY 01/30/21 hydroCHLOROthiazide [Hydrochlorothiazide] 1 tab PO DAILY 01/30/21 Atorvastatin Calcium [Lipitor*] 10 mg PO BEDTIME tab 01/31/21 Docusate [Colace Cap*] 100 mg PO DAILY cap 01/31/21 Physician Discharge Instructions: Patient presented with flank pain. This was secondary to right ureterolithiasis(10 x 5 mm mid ureteral stone) with moderate right-sided hydronephrosis. Patient was seen and evaluated by Urology. Urology recommended intervention. Cystoscopy and right stent was placed. Patient tolerated procedure well. Postoperatively patient without significant pain. Patient will follow up with urology in 1-2 weeks to follow up this hospitalization. Patient will likely require lithotripsy. Patient to follow up with Urology for definitive treatment. Patient is to monitor for any fever, chills, or worsening pain. Patient with history of diabetes mellitus type 2, hypertension, hyperlipidemia, and depression. Patient will resume her home medications. Recommend follow up with her PCP to further address. Diet: ADA Activity: Ad angel Followup: Jerod Duran DO [Primary Care Provider] - Socrates uMnoz [ACTIVE - CAN ADMIT] - Time spent managing pt's care (in minutes): 55
[2021-01-31 17:33] VITALS: BP 150/81
[2021-01-31] MEDS ORDERED: ATORVASTATIN 10 MG TAB PO SCH (21:00)
--- NOTE | 2021-01-31 21:53 | OP ---
Surgeon: JESUS MCKNIGHT Preoperative Diagnoses: 1. Right renal colic. 2. Right ureterolithiasis. Postoperative Diagnoses: 1. Right renal colic. 2. Right ureterolithiasis. 3. Cystitis cystica. Principle Procedure: Cystoscopy and right ureteral stent placement. Date of procedure 01/31/2021 Indication For Procedure: Ms. Gonzalez presented to the emergency department after having been seen last week in the Urology Clinic with an obstructing ureteral calculus. To my measurement, the stone is about 5 mm, but the CT report suggested it was 10 mm x 5 mm in size. Because of intractable pain, she was admitted and is having a stent placed today. Procedure In Detail: The patient was consented in the preoperative holding area before being transferred to the operative suite where general anesthesia using an LMA was induced. She was given Ancef 2 g IV antimicrobial prophylaxis and pneumo boots were provided for DVT prophylaxis. She was placed in the lithotomy position, padded and secured to the table appropriately. Her genitalia were prepped using Hibiclens, and she was draped in standard fashion. The case was begun using a 22-Macanese rigid cystoscope to traverse the urethra and into the bladder with ease. The bladder was surveyed, and there were multiple areas consistent with cystitis cystica. I then identified the trigone and the right ureteral orifice, which was cannulated using the tip of a 5-Macanese ureteral access catheter. A retrograde pyelogram was then performed to identify contrast entry into the renal pelvis. When contrast did enter the lower pole after navigating a point of obstruction in the mid proximal ureter, I was able to pass a Sensor wire into the putative upper pole of the kidney. Over the Sensor wire, I then passed a 6-Macanese x 26 cm double-J right ureteral stent, the Percuflex Ultra stent, which has a softer bladder coil, and a coil was observed in the putative renal pelvis with an additional coil formed within the bladder. I then decompressed her bladder and removed the cystoscope. The patient was taken out of lithotomy, awakened from general anesthesia, transferred to a stretcher and then to the recovery room in good condition. Complications: None. Discharge Disposition: She will maintain the ureteral stent for the next 2 weeks and be scheduled for definitive management with right ureteroscopy and laser lithotripsy anytime after 1 week from today. Urine culture is currently pending from her emergency department visit and will suffice if she is rescheduled within the next 2 weeks. If not, we will plan repeat preoperative evaluation with urine culture prior to definitive management of her stone, which is imperceptible on plain films/fluoroscopy. She subsequently will require metabolic profile assessment given her presumptive recurrent ureterolithiasis. Also, we will look for resolution of the lesions consistent in appearance with cystitis cystica or on followup we will plan biopsy of those lesions. NICOLE/LIANA Voice ID: [id number] Report ID: [id number] MTDD
[2021-02-01] MEDS ORDERED: lisinopriL 10 MG TAB PO SCH (09:00)
[2021-02-01] MEDS ORDERED: PARoxetine HCL 10 MG TAB PO SCH (09:00)
== END 2021-01-31 18:06 | disposition home or self-care (01) ==
LOC: ER 08:39 → ERHOLD 14:17 → 2ND 16:12
PROVIDERS: ADMIT Family Medicine; ATTEND Family Medicine
PROC: 0T9680Z Drainage of Right Ureter with Drainage Device, Via Natural or Artificial Opening Endoscopic (ICD-10-PCS; principal; 2021-01-31 14:45)
DX: N13.2 Hydronephrosis with renal and ureteral calculous obstruction (principal); N30.80 Other cystitis without hematuria; E11.9 Type 2 diabetes mellitus without complications; I10 Essential (primary) hypertension; E78.5 Hyperlipidemia, unspecified; F32.9 Major depressive disorder, single episode, unspecified; Z20.822 Contact with and (suspected) exposure to COVID-19; Z23 Encounter for immunization
CPT/HCPCS: 52332; 85025 ×2; 80048 ×2; 36415; 83735; 85610; 80061; 82947 ×5; 80076; 83690 ×2; 83880; 76377; 74176; 74450; 51610; 90471; 90732; 99285; U0003; J2704; J2250; J3010; J3475; J1100; J0690; J0696; J7030 ×4; J2405 ×3; G0378 ×3; 81003; 81015; J3480

== ENCOUNTER 2021-02-14 08:17 | Day surgery (SDC) | payer OTHER ==
[2021-02-14] MEDS ORDERED: AMPICILLIN SODIUM 2 GM in NA CHLORIDE 0.9% 100 ML IVPB ONE (09:00)
[2021-02-14] MEDS ORDERED: Gentamicin Inj 160 MG in NA CHLORIDE 0.9% 100 ML IV ONE (09:00)
[2021-02-14] MEDS ORDERED: NA CHLORIDE 0.9% 1,000 ML ONE (09:06)
[2021-02-14] MEDS ORDERED: FENTANYL CITR 100 MCG/2 ML ONE (09:12)
[2021-02-14] MEDS ORDERED: propofoL 200 MG/20 ML VIAL IV ONE (09:12)
[2021-02-14] MEDS ORDERED: MIDAZOLAM HCL 2 MG/2 ML INJ ONE (09:13)
[2021-02-14] MEDS ORDERED: ONDANSETRON 4 MG/2 ML VIAL ONE (09:13)
[2021-02-14] MEDS ORDERED: dexAMETHasone 10 MG/ML VIAL ONE (09:13)
[2021-02-14] MEDS ORDERED: LIDOCAINE JELLY 2%- 5 ML TUBE ONE (09:16)
[2021-02-14] MEDS ORDERED: LIDOCAINE 1% MPF 2 ML AMPULE ONE (09:17)
[2021-02-14] MEDS ORDERED: LIDOCAINE 1% MPF 5 ML VIAL ONE (09:18)
[2021-02-14] MEDS ORDERED: HYDROCODONE/APAP 5/325 MG TAB PO PRN (09:19)
[2021-02-14] MEDS ORDERED: PHENAZOPYRIDINE 100MG TAB PO ONE ×2 (09:19→11:34)
[2021-02-14] MEDS ORDERED: Mastisol Adhesive Liq ONE (10:13)
--- NOTE | 2021-02-14 10:14 | RAD REPORT ---
EXAM DESCRIPTION: RAD - Urethrocystogrphy Retrograde - 02/14/2021 10:05 am FINDINGS: Fluoro time was 16 seconds. There approximately 17 fluoroscopic KUB images obtained during fluoroscopic assisted placement or rep ositioning of a ureteral stent. No unexpected finding.
[2021-02-14 10:59] VITALS: BP 134/72; TEMP 97.5; O2SAT 100
[2021-02-14] MEDS ORDERED: HYDROCODONE/APAP 5/325 MG TAB ONE (11:33)
--- NOTE | 2021-02-14 16:17 | OP ---
Surgeon: JESUS MCKNIGHT Preoperative Diagnosis: Right nephroureterolithiasis. Postoperative Diagnosis: Right nephroureterolithiasis with an 8 x 5 mm proximal ureteral calculus and a 4 mm lower pole renal calculus. Principle Procedures: 1. Cystoscopy. 2. Right ureteroscopy with laser lithotripsy. 3. Right ureteral stent exchange. Date of Procedure: 02/14/21 Indication For Procedure: Ms. Gonzalez presented to the Urology Clinic with obstructing right ureterolithiasis measured 5 mm x 8 mm in longitudinal length. She underwent right ureteral stent placement and presents today for definitive management of the stones. Procedure In Detail: The patient was consented in the preoperative holding area before being transferred to operative suite where general anesthesia was induced. She was given ampicillin 2 g and gentamicin 160 mg IV antimicrobial prophylaxis. Pneumo boots were provided for DVT prophylaxis. She was placed in the lithotomy position, padded and secured to the table appropriately. The case was begun after her genitalia was prepped using Hibiclens and draped in standard fashion. Using a 22-Beninese rigid cystoscope to traverse the urethra and into the bladder. The bladder was decompressed of its urine and the stent was noted to emanate from the right ureteral orifice. It was grasped using an alligator grasper and delivered to the meatus. A Sensor wire was passed via the stent into the putative renal pelvis where a coil was observed fluoroscopically. Over the Sensor wire, a dual-lumen catheter was placed into the mid distal ureter and a retrograde pyelogram was performed. Right retrograde pyelography: Using a 70:30 mixture of Omnipaque and saline, contrast mixture was injected via the second lumen of the dual-lumen catheter and did delineate the renal pelvis and calices with the wire coiled appropriately within the renal pelvis. As such, a [employer] guidewire was then passed via the second lumen of the dual-lumen catheter and did coil within the upper pole calyx. The dual-lumen catheter was removed, and over the secondary wire, a flexible ureteroscope was then passed into the upper pole of the kidney. The calices of the kidney were then surveyed, and there were no stones noted within the upper pole or mid pole calices, but in the lower pole calyx was an approximately 4 mm Pierce plaque that had yet to detach into a fully formed stone. As a result, using a 270 nm laser fiber, I was able to dust the stone and release it from its papillary attachment. I then turned my attention to the renal pelvis and the proximal ureter, which was surveyed without any additional stones until in the mid proximal ureter, a stone that was the 5 mm x 8 mm stone was noted. Using the same laser fiber at this time at a setting of 0.8 joules and 8 hertz, I was able to dust the stone out of the ureter to a partial degree using the flexible ureteroscope. I thus removed the flexible ureteroscope and utilized the semi- rigid ureteroscope to directly visualize and more easily complete the fragmentation of the calculus out of the ureter where it was minimally impacted with no sense of ureteral damage or stricture. As a result, once the fragments were smaller than the size of 4 around the size of the laser fiber, I removed the ureteroscope and then back-loaded the cystoscope over the indwelling safety wire. I then passed a 6-Beninese by 26 cm double-J right ureteral stent into the collecting system with a coil observed fluoroscopically within the kidney and one cystoscopically within the bladder as observed visually. The stent was left on its tether, which was then secured using benzoin and Steri-Strips to her introitus. The case was then completed and she was taken out of the lithotomy position, transferred to a stretcher and then transferred to the recovery room after being awakened from general anesthesia. Complications: None. Discharge Disposition: She may follow up on or Saturday this week for tethered ureteral stent extraction with nurse practitioner, Tristen in the office. Subsequent management or evaluation of her recurrent nephrolithiasis should be done using 2 times 24-hour urine studies and blood work if she is a recurrent stone former. This should be done no sooner than 1 month from now with followup established about a month later for review and determination of management steps. NICOLE/LIANA Voice ID: [id number] Report ID: [id number] RAFI
== END 2021-02-14 11:40 | disposition home or self-care (01) ==
LOC: OR 08:17
PROVIDERS: ATTEND Urology
PROC: 0T768DZ Dilation of Right Ureter with Intraluminal Device, Via Natural or Artificial Opening Endoscopic (ICD-10-PCS; 2021-02-14)
PROC: 0TF68ZZ Fragmentation in Right Ureter, Via Natural or Artificial Opening Endoscopic (ICD-10-PCS; principal; 2021-02-14 09:45)
DX: N20.1 Calculus of ureter (principal); R39.9 Unspecified symptoms and signs involving the genitourinary system; I10 Essential (primary) hypertension; E11.9 Type 2 diabetes mellitus without complications; E78.5 Hyperlipidemia, unspecified; F32.9 Major depressive disorder, single episode, unspecified; Z20.822 Contact with and (suspected) exposure to COVID-19
CPT/HCPCS: 82947 ×2; 74450; 51610; 52356; U0003; J2704; J1580; J2250; J3010; J1100; J7030; J2405; J0290

== ENCOUNTER 2021-08-29 13:44 | Emergency (ER) | payer SELFPAY ==
--- OUTSIDE RECORDS SUMMARY | 2021-08-29 13:48 | XMS REPORT | Clinical Summary ---
:1970 Author Organization [facility] MD [facility] Address [address] [place] [address] Care Team Providers Name Role Phone Hu "Kassie" Unavailable Austin Stevens MD Primary Care Provider Allergies No known active allergies Medications Medication Sig Dispensed Refills Start Date End Date Status hydroCHLOROthiazide Take 25 mg by 0 Active (HYDRODIURIL) 25 mg tablet mouth daily. JARDIANCE 10 mg tab Take 1 tablet 2 02/06/2019 Active by mouth daily. metFORMIN (GLUCOPHAGE) Take 1 tablet 1 12/30/2018 Active 1000 mg tablet by mouth twice daily. PARoxetine (PAXIL) 10 mg Take 1 tablet 2 02/25/2019 Active tablet by mouth daily. cholecalciferol, vitamin Take 1 tablet 0 Active D3, (VITAMIN D3 ORAL) by mouth daily. ferrous sulfate (IRON Take 1 tablet 0 Active ORAL) by mouth daily. multivitamin Take 1 tablet 0 Act josette (multivitamin) tablet by mouth daily. ibuprofen (ADVIL,MOTRIN) Take 1 tablet 30 tablet 1 04/02/2019 Active 600 mg tabletIndications: (600 mg) by Uterine leiomyoma mouth every 6 (six) hours as needed for moderate pain. Active Problems Problem Noted Date Essential (primary) hypertension 03/17/2019 Diabetes mellitus type 2 without retinopathy 9 Iron deficiency anemia 03/17/2019 Abnormal uterine bleeding 03/17/2019 Uterine leiomyoma 03/17/2019 Mixed anxiety and depressive disorder 03/17/2019 Encounters Date Type Specialty Care Team Description 12/01/2020 Orders Only Infectious Diseases Alondra Collins MD S ARS-CoV-2 vaccination after 08/29/2020 Surgical History Surgery Date Site/Laterality Comments TUBAL LIGATION 25 years ago WRIST FRACTURE SURGERY 09/09/2000 - 09/08/2001 Medical History Medical History Date Comments Hypertension Diabetes mellitus Uterine leiomyoma Chronic depression 2017 Family History Medical History Relation Name Comments Prostate cancer Paternal Grandfather Relation Name Status Comments Paternal Grandfather Social History Tobacco Use Types Packs/Day Years Used Date Never Smoker Smokeless Tobacco: Never Used Alcohol Use Standard Drinks/Week Comments Yes 7 (1 standard drink = 0.6 oz pure alcoho l) Sex Assigned at Date Recorded Not on file Obstetrics History Para Term AB IAB SAB Ectopic Multiple Living Live Births 4 4 4 4 Date Outcome GA Total Labor/2nd/3rd Weight Sex Delivery Anes PTL Neeta A 1 A5 Name Clin Labor Term Term Term Term Comments 4 normal vaginal delivery- 8lbs 10oz Last Filed Vital Signs Not on file Plan of Treatment Health Maintenance Due Date Last Done Comments COVID-19 Vaccination (1) 02/27/1976 Results Not on fileafter 08/29/2020 Insurance Payer Benefit Plan / Subscriber ID Effective Dates Phone Addre ss Type Group [facility] [id number] 2018-Presen [address] [facility] [place] [address] Care Teams Credit Risk Analytics Manager Relationship Specialty Start Date End Date Carlos Lui PCP - External Obstetrics/Gynecology 02/25/19 "Kassie"MD Referring Aileen Stevens, PCP - General Gynecological Oncology 02/25/19 [place] [address]
--- OUTSIDE RECORDS SUMMARY | 2021-08-29 13:49 | XMS REPORT | Continuity of Care Document ---
:1970 Author Organization [facility] t Address [address] [place] [address] Care Team Providers Name Role Phone Austin MARI Primary Care Physician Unavailable Dennis GRANT Attending Clinician Willa GRANT S Attending Clinician Darryl CARR Attending Clinician Pob[facility] Attending Clinician Unavailable Prasad HOSKINS Attending Clinician PRASAD Attending Clinician Unavailable Amee LAURA G Attending Clinician Unavailable Maykel LAURA Attending Clinician Unavailable Austin MARI Attending Clinician Unavailable Payers Payer Name Policy Type Policy Effective Date Expiration Date Sour ce Number [facility] [id number] 2020 6 00:00:00 JENNINGS [id number] 2018 MD Mattson HEALTHCAREUNITED 00:00:00 HEALTHCARE [id number] 2018-P [address] [address] Problems Condition Condition Condition Status Onset Resolution Last Treating Co mments Source Name Details Category Date Date Treatment Clinician Date Diabetes Diabetes Disease Active MD mellitus mellitus 03-17 Thomas o type 2 [...] 00:00: n 00 Mixed Mixed Disease Active MD anxiety anxiety 03-17 Anderso and and 00:00: n depressive depressive 00 disorder disorder Essential Essential Disease Active MD (primary) (primary) 03-17 Iraj rso hypertensi hypertensi 00:00: n on on No known No known Disease Unive rs active active ity of problems problems [facility] Allergies, Adverse Reactions, Alerts Allergy Allergy Status Severity Reaction(s) Onset Inactive Treating Comm ents Source Name Type Date Date Clinician NO KNOWN Drug Active Univers ALLERGIE Class ity of S [facility] Family History Family Member Diagnosis Comments Start Date Stop Date Source Paternal grandfather Prostate cancer MD Mattson Social History Social Habit Start Date Stop Date Quantity Comments Source Exposure to Not sure University SARS-CoV-[address] [facility] [place] (event) Branch Alcohol intake 2019-05-15 2019-05-15 Current drinker MD Francy fink 00:00:00 00:00:00 of alcohol (finding) Tobacco use and 2019-03-18 2019-03-18 Smokeless tobacco MD Mattson exposure 00:00:00 00:00:00 non-user Sex Ass[birth year] At [birth year] MD Guzman on 00:00:00 00:00:00 Smoking Status Start Date Stop Date Source Unknown if ever smoked Universit y [facility] Never smoked tobacco MD Mattson Medications Ordered Filled Start Stop Current Ordering Indication Dosage Frequency Signature Comments Components Source Medication Medication Date Date Medication? Clinician (SIG) Name Name tetanus-dip 2019- 2020- No .5mL 0.5 mL, Un melanie htheria 09-30 Intramuscu ity o f toxoids 12:00: 11:57 lar, ONCE, Jonatan as (TENIVAC) 00 :00 1 dose, Medical 5-2 [facility] unit/0.5 mL 11/22/20 injection at 0600, 0.5 mL Routine metFORMIN 2020-1 Yes 1000mg Take 1,000 Univers 1,000 mg 1-22 mg by ity of tablet 10:19: mouth 2 [place] [address] (two) Medical times Branch daily with meals. hydroCHLORO 2020-1 Yes 25mg Take 25 mg Univers thiazide 25 1-22 by mouth ity of mg tablet 10:19: daily. [place] [address] Medical Branch traMADoL 2020-1 Yes [id number] 50mg Take 1 Univers (ULTRAM) 50 1-22 tablet by ity of mg tablet 00:00: mouth [place] 00 every 6 Medical (six) Branch hours as needed for Pain (scale 7-10). Indication s: acute pain Janumet XR Janumet XR 2020-0 Yes Jerod [address] [facility] 7-14 [facility] evening [facility] 00 meal l Outpati ent Clinics cholecalcif 2020-0 Yes 1{tbl} Take 1 Un melanie margie, 6-29 tablet by ity of vitamin D3, 13:34: [place] 25 [place] 50 Medical (1,000 Branch unit) tablet cholecalcif 2020-0 Yes 1{tbl} Take 1 Un melanie margie, 6-29 tablet by ity of vitamin D3, 13:34: [place]. [place] 25 [place] 50 Medical (1,000 Branch unit) tablet cholecalcif 2020-0 Yes 1{tbl} Take 1 Un melanie margie, 6-29 tablet by ity of vitamin D3, 13:34: [place]. [place] 25 [place] 50 Medical (1,000 Branch unit) tablet cholecalcif 2020-0 Yes 1{tbl} Take 1 Un melanie margie, 6-29 tablet by ity of vitamin D3, 13:34: [place]. [place] 25 [place] 50 Medical (1,000 Branch unit) tablet metFORMIN 2020-0 Yes 1000mg Take 1,000 Univers 1,000 mg 6-29 mg by ity of tablet 13:31: mouth 2 [place] [address] (two) Medical times [place] daily with meals. hydroCHLORO 2020-0 Yes 25mg Take 25 mg Univers thiazide 25 6-29 by mouth ity of mg tablet 13:31: daily. [place] [address] Medical [place] metFORMIN 2020-0 Yes 1000mg Take 1,000 Univers 1,000 mg 6-29 mg by ity of tablet 13:31: mouth 2 [place] [address] (two) Medical times Branch daily with meals. hydroCHLORO 2019-0 Yes 25mg Take 25 mg Univers thiazide 25 6-29 by mouth ity of mg tablet 13:31: daily. [place] [address] Medical Branch metFORMIN 2019-0 Yes 1000mg Take 1,000 Univers 1,000 mg 6-29 mg by ity of tablet 13:31: mouth 2 [place] [address] (two) Medical times [place] daily with meals. hydroCHLORO 2019-0 Yes 25mg Take 25 mg Univers thiazide 25 6-29 by mouth ity of mg tablet 13:31: daily. [place] [address] Medical Branch atorvastati Yes TAKE 1 Univ ers n 10 mg 6-23 TABLET BY ity of tablet 00:00: MOUTH ONCE [place] 00 DAILY FOR Medical 30 DAYS Branch lisinopril Yes TAKE 1 Unive rs 10 mg 6-23 TABLET BY ity of tablet 00:00: MOUTH ONCE [place] 00 DAILY FOR Medical 30 DAYS Branch atorvastati Yes TAKE 1 Univ ers n 10 mg 6-23 TABLET BY ity of tablet 00:00: MOUTH ONCE [place] DAILY FOR Medical 30 DAYS Branch lisinopril Yes TAKE 1 Unive rs 10 mg 6-23 TABLET BY ity of tablet 00:00: MOUTH ONCE [place] 00 DAILY FOR Medical 30 DAYS Branch atorvastati Yes TAKE 1 Univ ers n 10 mg 6-23 TABLET BY ity of tablet 00:00: MOUTH ONCE DAILY FOR Medical 30 DAYS Branch lisinopril Yes TAKE 1 Unive rs 10 mg 6-23 TABLET BY ity of tablet 00:00: MOUTH ONCE [place] 00 DAILY FOR Medical 30 DAYS Branch atorvastati Yes TAKE 1 Univ ers n 10 mg 6-23 TABLET BY ity of tablet 00:00: MOUTH ONCE [place] 00 DAILY FOR Medical 30 DAYS Branch lisinopril Yes TAKE 1 Unive rs 10 mg 6-23 TABLET BY ity of tablet 00:00: MOUTH ONCE [place] 00 DAILY FOR Medical 30 DAYS Branch Lipitor Lipitor Yes Jerod [address] 06-02 [facility] - 00:[facility]: [facility]oria 00 l Outpati ent Clinics hydroCHLORO Yes 25mg Take 25 mg MD thiazide 9-06 by mouth Anderso (HYDRODIURI 08:16: daily. n L) 25 mg 18 tablet cholecalcif Yes 1{tbl} Take 1 MD margie, 9-06 tablet by Anderso vitamin D3, 08:16: mouth n (VITAMIN D3 18 daily. ORAL) ferrous Yes 1{tbl} Take 1 MD sulfate 9-06 tablet by Anderso (IRON ORAL) 08:16: mouth n 18 daily. multivitami Yes 1{tbl} Take 1 MD n 9-06 tablet by Anderso (multivitam 08:16: mouth n in) tablet 18 daily. ibuprofen Yes Uterine 600mg Take 1 MD (ADVIL,MOTR 7-25 leiomyoma tablet A nderso IN) 600 mg 00:00: (600 mg) n tablet 00 by mouth every 6 (six) hours as needed for moderate pain. PARoxetine Yes 1{tbl} Take 1 Uni vers 10 mg 6-19 tablet by ity of tablet 00:00: mouth. [address] PARoxetine Yes 1{tbl} Take 1 Uni vers 10 mg 6-19 tablet by ity of tablet 00:00: mouth. [address] PARoxetine Yes 1{tbl} Take 1 Uni vers 10 mg 6-19 tablet by ity of tablet 00:00: mouth. [address] PARoxetine Yes 1{tbl} Take 1 Uni vers 10 mg 6-19 tablet by ity of tablet 00:00: mouth. [address] PARoxetine Yes 1{tbl} Take 1 MD (PAXIL) 10 6-19 tablet by Iraj rso mg tablet 00:00: mouth n 00 daily. empaglifloz Yes 1{tbl} Take 1 Un melanie in 5-31 tablet by ity of ([place]) 00:[place]: [place]. [place] 10 mg Tab [facility] Branch empaglifloz Yes 1{tbl} Take 1 Un melanie in 5-31 tablet by ity of (JARDIANCE) 00:00: [place]. [place] 10 mg Tab [facility] empaglifloz Yes 1{tbl} Take 1 Un melanie in 5-31 tablet by ity of (J[place]IANCE) 00:00: [place]. [place] 10 mg Tab Medical Branch empaglifloz 2019-0 Yes 1{tbl} Take 1 Un melanie in 5-31 tablet by ity of (JARDIANCE) 00:00: [place]. [place] 10 mg Tab 00 [facility] Branch JARDIANCE 2019-0 Yes 1{tbl} Take 1 MD 10 mg tab 5-31 tablet by Norbert so 00:00: mouth n 00 daily. metFORMIN 2019-0 Yes 1000mg Take 1,000 Univers 1,000 mg 5-17 mg by ity of tablet 17:26: mouth 2 [place] [address] ([facility] Medical times [place] daily with meals. hydroCHLORO 2019-0 Yes 25mg Take 25 mg Univers thiazide 25 5-17 by mouth ity of mg tablet 17:26: daily. [address] metFORMIN 2019-0 Yes 1000mg Take 1,000 Univers 1,000 mg 5-17 mg by ity of tablet 17:26: mouth [address] times [place] daily with meals. hydroCHLORO 2019-0 Yes 25mg Take 25 mg Univers thiazide 25 5-17 by mouth ity of mg tablet 17:26: daily. [address] metFORMIN 2019-0 Yes 1000mg Take 1,000 Univers 1,000 mg 5-17 mg by ity of tablet 17:26: mouth [address] daily with meals. hydroCHLORO 2019-0 Yes 25mg Take 25 mg Univers thiazide 25 5-17 by mouth ity of mg tablet 17:26: daily. [address] sulfamethox 2019-0 Yes [id number] 1{tbl} Take 1 Univers azole-trime 5-17 tablet by ity of thoprim 00:00: mouth [place] 800-160 mg 00 every 12 Medic al per tablet (twelve) Branc h hours. sulfamethox 2019-0 Yes [id number] 1{tbl} Take 1 Univers azole-trime 5-17 tablet by ity of thoprim 00:00: mouth [place] 800-160 mg 00 every 12 Medic al per tablet (twelve) Branc h hours. sulfamethox 2019-0 Yes [id number] 1{tbl} Take 1 Univers azole-trime 5-17 tablet by ity of thoprim 00:00: mouth [place] 800-160 mg 00 every 12 Medic al per tablet (twelve) Branc h hours. sulfamethox 2019-0 Yes [id number] 1{tbl} Take 1 Univers azole-trime 5-17 tablet by ity of thoprim 00:00: mouth [place] 800-160 mg 00 every 12 Medic al per tablet (twelve) Branc h hours. sulfamethox 2019- Yes [id number] 1{tbl} Take 1 Univers azole-trime 5-17 tablet by ity of thoprim 00:00: mouth [place] 800-160 mg 00 every 12 Medic al per tablet (twelve) Branc h hours. sulfamethox 2019- Yes [id number] 1{tbl} Take 1 Univers azole-trime 5-17 tablet by ity of thoprim 00:00: mouth [place] 800-160 mg 00 every 12 Medic al per tablet (twelve) Branc h hours. sulfamethox 2020- No [id number] 1{tbl} Take 1 Univers azole-trime 5-17 - tablet by it y of thoprim 00:00: 00:00 mouth [place] 800-160 mg 00 :00 every 12 Medic al per tablet (twelve) Branc h hours. metFORMIN Yes 1{tbl} Take 1 MD (GLUCOPHAGE 4-23 tablet by And erso ) 1000 mg 00:00: mouth n tablet 00 twice daily. Paroxetine Paroxetine Yes Jerod [address] [facility] [address] HCl HCl [facility] in the [facility] - morning [facility] ent Clinics Hydrochloro Hydrochloro Yes Jerod [address] [facility] thiazide thiazide [place] in the Luke [facility] - morning [facility] ent [facility]ics Vitamin D Vitamin D Yes Jerod [address] [facility] [facility]ics Lisinopril Lisinopril Yes Jerod TAKE [address] [facility] [facility]an TABLET BY [facility] - MOUTH ONCE Memoria DAILY l [facility] ent Clinics Metformin Metformin Yes Jerod [address] HCl HCl [facility] with a [facility] - meal [facility] ent [facility]ics Ferrous Ferrous Yes Jerod as [facility] Sulfate Sulfate [facility]an directed Luke s - [facility] ent Clinics Jardiance Jardiance 2019- No Jerod [address] [facility] 07-14 [facility] - 00:00 Memoria :00 [facility] ent Clinics Immunizations Ordered Filled Immunization Date Status Comments Sour e Immunization Name Name Td 2020-07-31 Completed University of 00:00:00 [facility] Afluria single dose Afluria single dose 2019-06-[address] [facility] Afluria Afluria 2018-11-[address] [facility] - 00:[facility]00 [facility] Vital Signs Vital Name Observation Time Observation Value Comments Source Systolic blood 2020-07-31 12:05:00 127 mm[Hg] Univer sity of pressure [facility] [place] Branch Diastolic blood 2020-07-31 12:05:00 78 mm[Hg] Unive rsity of pressure [place] [facility] Branch Heart rate 2020-07-31 12:05:00 90 /min Universi ty of [place] [facility] Respiratory rate 2020-07-31 12:05:00 16 /min Univ ersity of [place] [facility] Branch Oxygen saturation in 2020-07-31 12:05:00 98 /min University of Arterial blood by [facility] Pulse oximetry Branch Body temperature 2020-07-31 10:23:00 36.33 Danuta Univ ersity of [place] [facility] Body height 2020-07-31 10:23:00 157.5 cm Universi ty of [place] [facility] Body weight 2020-07-31 10:23:00 95.255 kg Universi ty of [place] [facility] BMI 2020-07-31 10:23:00 38.41 kg/m2 Universi ty of [place] [facility] Systolic blood 2020-07-31 12:05:00 127 mm[Hg] Univer sity of pressure [place] [facility] Diastolic blood 2020-07-31 12:05:00 78 mm[Hg] Unive rsity of pressure [place] [facility] Heart rate 2020-07-31 12:05:00 90 /min Universi ty of [place] [facility] Respiratory rate 2020-07-31 12:05:00 16 /min Univ ersity of [place] [facility] Oxygen saturation in 2020-07-31 12:05:00 98 /min University of Arterial blood by [facility] Pulse oximetry Branch Body temperature 2020-07-31 10:23:00 36.33 Danuta Univ ersity of [place] [facility] Body height 2020-07-31 10:23:00 157.5 cm Universi ty of [place] [facility] Body weight 2020-07-31 10:23:00 95.255 kg Universi ty of [place] [facility] BMI 2020-07-31 10:23:00 38.41 kg/m2 Universi ty of [facility] [place] Branch Systolic blood 2020-03-07 13:32:00 133 mm[Hg] Univer sity of pressure [facility] Diastolic blood 2020-03-07 13:32:00 86 mm[Hg] Unive rsity of pressure [facility] Heart rate 2020-03-07 13:32:00 74 /min [facility] Body temperature 2020-03-07 13:32:00 36.44 Danuta [facility] Respiratory rate 2020-03-07 13:32:00 18 /min [facility] Body weight 2020-03-07 13:32:00 96.616 kg [facility] BMI 2020-03-07 13:32:00 38.96 kg/m2 [facility] Oxygen saturation in 2020-03-07 13:32:00 98 /min [facility] Arterial blood by [facility] Pulse oximetry [place] Procedures Procedure Date / Time Performed Performing Clinician Sourc e SD LAYR CLOS WND 2020-07-31 11:40:00 Eyad Crouch [facility] FACE,FACIAL 2.5-5 CM Medical [facility] Plan of Care Planned Activity Planned Date Details Comments Source Future Scheduled Test 1975-02-27 00:00:00 COVID-19 Vaccination MD Mattson (1) [code = COVID-19 Vaccination (1)] Encounters Start End Encounter Admission Attending Care Care Encounter Source Date/Time Date/Time Type Type Clinicians Facility Department ID 2021-07-08 Emergency [facility] [id number] [facility] 07:06:17 ity [facility] 2021-08-16 2021-08-16 ambulatory [facility] [id number] [facility] 2021-05-12 2021-05-12 Outpatient [facility] [id number] [facility] 2021-05-11 2021-05-11 Outpatient [facility] [id number] [facility] 2021-04-12 2021-04-12 Outpatient [facility] [id number] [facility] 2021-02-17 2021-02-17 Outpatient [facility] [id number] [facility] 2021-02-08 2021-02-08 Outpatient [facility] [id number] [facility] 2021-02-03 2021-02-03 Outpatient [facility] [id number] [facility] 2021-01-24 2021-01-24 Outpatient [facility] [id number] [facility] 2021-01-23 2021-01-23 Outpatient [facility] [id number] [facility] 2021-01-06 2021-01-06 Outpatient [facility]ML[facility] [id number] [facility] 2020-12-22 2020-12-22 Outpatient [facility] [id number] [facility] 2020-12-14 2020-12-14 Outpatient [facility] [id number] [facility] 2020-12-05 2020-12-05 Outpatient [facility]ML[facility] [id number] [facility] 2020-11-25 2020-11-25 Outpatient [facility]MLC [facility] [id number] [facility] 2020-08-08 2020-08-08 Outpatient [facility] [id number] [facility] 2020-08-01 2020-08-01 [facility] [id number] [facility] 00[facility]00 [facility] 2020-07-31 2020-07-31 [facility], [facility] [id number] [facility] 04:17:00 06:08:00 Eyad Epps Carin [id number] ity of [place] [id number] [place] [address] [id number] [place] [id number] Branch 2020-07-31 2020-07-31 [facility] [id number] 04:17:00 06:08:00 Eyad Epps aCrin [id number] [place] [id number] [place] [address] [id number] [facility] 2020-05-25 2020-05-25 [facility] [id number] 08:28:00 08:28:00 [facility] 2020-03-22 2020-03-22 [facility] [id number] 08:00:00 08:00:00 [facility] 2020-03-08 2020-03-08 Telephone [facility] [id number] [facility] 00:00:00 00:00:00 Violeta Del Rosario [id number] i ty of [place] [id number] [place] [address] [id number] [place] [address] Branch 2020-03-08 2020-03-08 Telephone [facility] [id number] 00:00:00 00:00:00 Violeta Del Rosario [id number] [place] [id number] [place] [id number] [facility] 2020-03-07 2020-03-07 Urgent Pob1, Acute Care Clinic [facility] [id number] Univers 08:20:03 08:40:03 [facility] [id number] ity of [place] [id number] Jonatan as Professio [phone] [address] Office Building One 2020-03-07 2020-03-07 Outpatient Jatinder PARHAM [facility] [id number] Univers 08:40:00 08:40:00 YULY ity [facility] 2020-01-19 2020-01-19 [facility] [id number] 13:45:00 13:45:00 [employer] [facility] Outpati ent [facility] 2019-11-25 2019-11-25 Nurse Jennifer MCDANIEL [id number] Univers 00:00:00 00:00:00 Triage julio Beccalavell MCGINNIS [id number] ity [facility] [id number] Jonatan as [phone] [address] 2019-11-25 2019-11-25 Nurse VIOLETA Brar [id number] Univers 00:00:00 00:00:00 Triage Bri MCGINNIS [id number] it y of [facility] [id number] Jonatan as [id number] [address] 2019-09-14 2019-09-14 [facility] [id number] 14:15:00 14:15:00 12Return [facility] Medicine Outpati ent Clinics 2019-08-17 2019-08-17 [facility] [id number] 16:50:00 16:50:00 [employer] [facility] Medicine Outpati ent Clinics 2019-06-02 2019-06-02 [facility] [id number] 08:45:00 08:45:00 [employer] [facility] Medicine Outpati ent Clinics 2019-04-10 2019-04-10 [facility] [id number] 12:23:00 12:23:00 [employer] [facility] Medicine Outpati ent Clinics 2019-04-02 2019-04-02 Outpatient [facility]FB [id number] 05:39:00 05:39:00 2019-03-31 2019-03-31 [facility] [id number] 11:59:00 11:59:00 t [employer] [facility] ent [facility] 2019-03-31 2019-03-31 [facility] [id number] 11:55:00 11:55:00 t [employer] [facility] ent [facility] 2019-03-18 2019-03-18 Outpatient LATOSHA MARI MDA MDA [id number] MD 10:03:12 10:03:12 SASKIA vanegas 2019-02-19 2019-02-19 [facility] [id number] 08:14:00 08:14:00 [facility] Outpati ent Clinics 2019-02-17 2019-02-17 [facility] [id number] 09:45:00 09:45:00 [facility] Outpati ent Clinics 2019-01-05 2019-01-05 [facility] [id number] 16:38:00 16:38:00 t [employer] [facility] 2019-01-01 2019-01-01 [facility] [id number] 09:48:00 09:48:00 [facility] Outpati ent Clinics 2018-12-31 2018-12-31 [facility] [id number] 16:40:00 16:40:00 t [employer] [facility] Clin[facility] 2018-12-30 2018-12-30 [facility] [id number] 11:15:00 11:15:00 [facility] Outpati ent Clinics 2018-12-12 2018-12-12 [facility] [id number] 15:33:00 15:33:00 t [employer] [facility] - Drive [facility] Medicine Outpati ent Clinics 2018-12-12 2018-12-12 [facility] [id number] 12:57:00 12:57:00 t [place] [employer] Luke s - Drive [facility] Outpati ent Clinics 2018-12-12 2018-12-12 [facility] [id number] 08:15:00 08:15:00 t [place] [employer] Luke s - Drive [facility] Medicine Outpati ent Clinics 2018-12-04 2018-12-04 [facility] [id number] 11:46:00 11:46:00 t [place] qunb s - Drive [facility] Outpati ent Clinics 2018-12-03 2018-12-03 [facility] [id number] 11:55:00 11:55:00 [facility] Outpati ent Clinics 2018-11-05 2018-11-05 [facility] [id number] 15:59:00 15:59:00 t [place] qun[place] - Drive [facility] Outpati ent Clinics 2018-11-05 2018-11-05 [facility] [id number] 10:00:00 10:00:00 t [place] [employer] s - Drive [facility] Outpati ent Clinics 2018-08-26 2018-08-26 [facility] [id number] 09:15:00 09:15:00 t [place] [employer] s - Drive [facility] Outpati ent Clinics Results Test Description Test Time Test Results Result Source Comments Comments Laceration 2020-07-11 Eyad Crouch MD ? Un iversity of Repair 2 ? 07/31/2020 ?5:[address] [facility] [place] 11:40:00 AMLaceration Branch RepairPerformed by: Eyad Crouch MDAuthorized by: Eyad Crouch MD Consent: ?Consent obtained: ?Verbal ?Consent given by: ?Patient ?Risks discussed: ?Infection, need for additional repair, nerve damage, pain, poor cosmetic result, poor wound healing, retained foreign body, tendon damage and vascular damage ?Alternatives discussed: ?No treatmentAnesthesia (see MAR for exact dosages): ?Anesthesia method: ?Local infiltration ?Local anesthetic: ?Lidocaine 1% WITH epiLaceration details: ?Location: ?Face ?Face location: ?Forehead ?Length (cm): ?5 ?Depth (mm): ?0.5Repair type: ?Repair type: ?IntermediatePre-proce dure details: ?Preparation: ?Patient was prepped and draped in usual sterile fashionExploration: ?Hemostasis achieved with: ?Epinephrine and direct pressure ?Wound exploration: wound explored through full range of motion ? ?Wound extent: fascia violated ? ?Wound extent: no foreign bodies/material noted, no muscle damage noted, no nerve damage noted, no tendon damage noted, no underlying fracture noted and no vascular damage noted ? ?Contaminated: no ?Treatment: ?Area cleansed with: ?Hibiclens ?Amount of cleaning: ?Standard ?Irrigation solution: ?Sterile saline ?Irrigation volume: ?500 ?Irrigation method: ?Pressure wash ?Visualized foreign bodies/material removed: no ?Skin repair: ?Repair method: ?Sutures ?Suture size: ?5-0 ?Suture technique: ?Simple interrupted ?Number of sutures: ?11Approximation: ?Approximation: ?ClosePost-procedure details: ?Dressing: ?Antibiotic ointment ?Patient tolerance of procedure: ?Tolerated well, no immediate complications
[2021-08-29 14:47] LABS: Urine Blood 3+ (Negative); Urine Glucose Trace (Negative); Urine Protein Trace (Negative); Urine Specific Gravity <=1.005 (1.005-1.030)
[2021-08-29] MEDS ORDERED: ACETAMINOPHEN 500 MG TAB ONE (14:51)
--- NOTE | 2021-08-29 14:58 | ER ---
Nurse's Notes [facility] Name: Luz Maria Gonzalez Age: 51 yrs Sex: Female : 1970 Arrival Date: 08/29/2021 Time: 13:48 Bed 20 Private MD: Jerod Duran Diagnosis: Dysuria Presentation: 08/29 14:03 Chief complaint: Patient states: she has pain and burning when urinating. Patient ap3 reports taking AZO this morning to see if the symptoms would subside. Coronavirus screen: At this time, the client does not indicate any symptoms associated with coronavirus-19. Ebola Screen: No symptoms or risks identified at this time. Initial Sepsis Screen: Does the patient meet any 2 criteria? No. Patient's initial sepsis screen is negative. Does the patient have a suspected source of infection? No. Patient's initial sepsis screen is negative. Risk Assessment: Do you want to hurt yourself or someone else? Patient reports no desire to harm self or others. Onset of symptoms was August 28, 2021. 14:03 Method Of Arrival: Ambulatory ap3 14:03 Acuity: ROLO 4 ap3 Triage Assessment: 14:05 General: Appears in no apparent distress. comfortable, Behavior is calm, cooperative, ap3 appropriate for age. Pain:. Neuro: Level of Consciousness is awake, alert, obeys commands, Oriented to person, place, time, situation, Appropriate for age. Respiratory: Airway is patent Respiratory effort is even, unlabored. : Reports burning with urination, pain with urination, urgency. 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 - Social history:: Smoking status: Patient denies any tobacco usage or history of. Patient uses alcohol, occasionally. Screenin:05 Abuse screen: Denies threats or abuse. Nutritional screening: No deficits noted. ap3 Tuberculosis screening: No symptoms or risk factors identified. Fall Risk None identified. Assessment: 14:15 General: Appears in no apparent distress. Behavior is calm, cooperative. Pain: monet Complains of pain in pelvis. : Reports pain flank(s), with urination, Pain is 6 out of 10 on a pain scale. Vital Signs: 14:03 BP 143 / 70; Pulse 72; Resp 17; Temp 98.4(TE); Pulse Ox 100% on R/A; Weight 86.18 kg; ap3 Height 5 ft. 2 in. (157.48 cm); 14:30 BP 138 / 64; Pulse 72; Resp 16; Pulse Ox 96% on R/A; jg9 14:03 Body Mass Index 34.75 (86.18 kg, 157.48 cm) ap3 ED Course: 13:48 Patient arrived in ED. mr 13:48 Jerod Duran DO is Private Physician. mr 14:04 Triage completed. ap3 14:06 Arm band placed on right wrist. ap3 14:06 Patient has correct armband on for positive identification. Bed in low position. Call ap3 light in reach. Side rails up X 1. Pulse ox on. NIBP on. Door closed. Noise minimized. 14:11 Chau Mcmahon PA is PHCP. cp 14:11 Chau Mattson MD is Attending Physician. cp 14:12 Kath Smith is Primary Nurse. monet 14:15 No provider procedures requiring assistance completed. monet 14:46 Urine Microscopic Only Sent. jg9 14:46 Urine Microscopic Only Sent. jg9 14:47 Urine collected: clean catch specimen, tea colored. jg9 15:12 Patient did not have IV access during this emergency room visit. jg9 Administered Medications: 14:54 Drug: Tylenol 1000 mg Route: PO; jg9 15:13 Follow up: Response: No adverse reaction; Medication administered at discharge. jg9 Point of Care Testing: Urine : 14:47 hCG Reading: Negative; Control Reading: Positive; jg9 14:47 Exp: 01/06/2023; Lot #: [id number]; jg9 Outcome: 14:57 Discharge ordered by . cp 15:12 Discharged to home ambulatory. jg9 15:12 Condition: stable 15:12 Discharge instructions given to patient, Instructed on discharge instructions, follow up and referral plans. Demonstrated understanding of instructions, follow-up care, medications, Prescriptions given X 1. 15:14 Patient left the ED. jg9 Signatures: [place] mr Chau Mcmahon PA PA cp Prokisch, Amanda, RN RN ap3 Porsha Macario jg9 Kath Smith
--- NOTE | 2021-08-29 14:58 | EDPHYS ---
Physician Documentation [facility] Name: Luz Maria Gonzalez Age: 51 yrs Sex: Female : 1970 Arrival Date: 08/29/2021 Time: 13:48 Bed 20 Private MD: Jerod Duran ED Physician Chau Mattson HPI: 08/29 14:27 This 51 yrs old Female presents to ER via Ambulatory with complaints of cp Urinary Problem. 14:27 The patient presents with urinary symptoms, dysuria. Onset: The symptoms/episode cp began/occurred yesterday. Associated signs and symptoms: Pertinent positives: dysuria, urinary frequency, Pertinent negatives: fever, vomiting. Severity of symptoms: in the emergency department the symptoms are unchanged, despite home interventions. Patient reports she has been taking OTC Azo for burning with urination since yesterday. 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 - Social history:: Smoking status: Patient denies any tobacco usage or history of. Patient uses alcohol, occasionally. ROS: 14:29 Eyes: Negative for injury, pain, redness, and discharge. cp 14:29 Constitutional: Negative for body aches, chills, fever, poor PO intake. 14:29 Cardiovascular: Negative for chest pain. 14:29 Respiratory: Negative for cough, shortness of breath, wheezing. 14:29 Abdomen/GI: Negative for abdominal pain, nausea, vomiting, and diarrhea. 14:29 Back: Positive for pain at rest, of the right low back. 14:29 : Positive for burning with urination. 14:29 All other systems are negative. Exam: 14:30 Head/Face: Normocephalic, atraumatic. cp 14:30 Constitutional: The patient appears in no acute distress, alert, awake, non-toxic, well developed, well nourished. 14:30 Eyes: Periorbital structures: appear normal, Conjunctiva: normal, no exudate, no injection, Lids and lashes: appear normal, bilaterally. 14:30 ENT: External ear(s): are unremarkable, Nose: is normal, Posterior pharynx: Airway: no evidence of obstruction, patent. 14:30 Chest/axilla: Inspection: normal. 14:30 Cardiovascular: Rate: normal, Rhythm: regular. 14:30 Respiratory: the patient does not display signs of respiratory distress, Respirations: normal, no use of accessory muscles, no retractions. 14:30 Abdomen/GI: Exam negative for discomfort, distension, guarding, Inspection: abdomen appears normal. 14:30 Back: pain, that is very mild, of the right low back, ROM is normal. Vital Signs: 14:03 BP 143 / 70; Pulse 72; Resp 17; Temp 98.4(TE); Pulse Ox 100% on R/A; Weight 86.18 kg; ap3 Height 5 ft. 2 in. (157.48 cm); 14:30 BP 138 / 64; Pulse 72; Resp 16; Pulse Ox 96% on R/A; jg9 14:03 Body Mass Index 34.75 (86.18 kg, 157.48 cm) ap3 MDM: 14:13 Patient medically screened. [facility] 14:30 Differential diagnosis: urinary tract infection, kidney stone, ureter stone, cp pyelonephritis. 14:56 Data reviewed: vital signs, nurses notes, lab test result(s), and as a result, I will cp discharge patient. 14:56 Counseling: I had a detailed discussion with the patient and/or guardian regarding: the cp historical points, exam findings, and any diagnostic results supporting the discharge/admit diagnosis, to return to the emergency department if symptoms worsen or persist or if there are any questions or concerns that arise at home. ED course: VSS. Urine dip results affected by patient taking AZO. Will treat dysuria with oral antibiotics and discharge to home for continued monitoring. 08/29 14:18 Order name: Urine Microscopic Only 08/29 14:19 Order name: Urine Microscopic Only [facility] 08/29 14:18 Order name: Urine Dipstick-Ancillary (obtain specimen); Complete Time: 14:46 cp 08/29 14:46 Order name: Urine Dipstick-Ancillary [facility] 08/29 15:08 Order name: Urine Culture [facility] 08/29 14:18 Order name: Urine Test (obtain specimen); Complete Time: 14:46 cp Administered Medications: 14:54 Drug: Tylenol 1000 mg Route: PO; jg9 15:13 Follow up: Response: No adverse reaction; Medication administered at discharge. jg9 Point of Care Testing: Urine : 14:47 hCG Reading: Negative; Control Reading: Positive; jg9 14:47 Exp: 01/06/2023; Lot #: [id number]; jg9 Disposition: 18:55 Co-signature as Attending Physician, Chau Mattson MD I agree with the assessment and [facility] plan of care. Disposition Summary: 08/29/21 14:57 Discharge Ordered Location: Home cp Problem: new cp Symptoms: are unchanged cp Condition: Stable cp Diagnosis - Dysuria cp Followup: cp - With: Private Physician - When: 2 - 3 days - Reason: Worsening of condition Discharge Instructions: - Discharge Summary Sheet cp - Dysuria cp Forms: - Medication Reconciliation Form cp - Thank You Letter cp - Antibiotic Education cp - Prescription Opioid Use cp Prescriptions: - Bactrim DS 800-160 mg Oral Tablet - take 1 tablet by ORAL route every 12 hours for 5 days; 10 tablet; Refills: 0, cp Product Selection Permitted Signatures: Dispatcher [employer] Chau Vieyra MD MD cha Page, Corey, PA PA Marianne Ramirez, VALENTÍN RN apPorsha Cooley jg9
[2021-08-29 15:06] LABS: Urine Bacteria <20 /HPF (<20); Urine RBC <5 /HPF (NONE SEEN)
[2021-08-29 15:22] VITALS: TEMP 98.4
[2021-08-29 15:23] VITALS: BP 138/64; O2SAT 96
== END 2021-08-29 15:14 | disposition home or self-care (01) ==
LOC: ER 13:44
DX: R30.0 Dysuria (principal); I10 Essential (primary) hypertension
CPT/HCPCS: 81003; 81015; 87086; 87088; 99284

== ENCOUNTER 2021-10-02 17:09 | Emergency (ER) | payer SELFPAY ==
--- OUTSIDE RECORDS SUMMARY | 2021-10-02 17:12 | XMS REPORT | Continuity of Care Document ---
:1970 Author Organization [facility] t Address [address] [place] [address] Care Team Providers Name Role Phone [place] [...] Effective Date Expiration Date Sour ce Number [facility] [id number] 2020 6 00:00:00 ENID [id number] 2018 MD Mattson HEALTHCAREUNITED 00:00:00 HEALTHCARE [id number] 2018-P [address], [place] [address] Problems Condition Condition Condition Status Onset Resolution [...] rs active active ity of problems problems [facility] Allergies, Adverse Reactions, Alerts Allergy Allergy Status Severity Reaction(s) Onset Inactive Treating Comm ents Source Name Type Date Date Clinician NO KNOWN Drug Active Univers ALLERGIE Class ity of S [facility] Family History Family Member Diagnosis Comments Start Date Stop Date Source Paternal grandfather Prostate cancer MD Mattson Social History Social Habit Start Date Stop Date Quantity Comments Source Exposure to Not sure University SARS-CoV-2 [facility] (event) Branch Alcohol intake 2019-05-15 2019-05-15 Current drinker MD Francy fink 00:00:00 00:00:00 of alcohol (finding) Tobacco use and 2019-03-18 2019-03-18 Smokeless tobacco MD Mattson exposure 00:00:00 00:00:00 non-user Sex Ass[birth year] At [birth year] MD Guzman on 00:00:00 00:00:00 Smoking Status Start Date Stop Date Source Unknown if ever smoked Universit y [facility] Never smoked tobacco MD Mattson Medications Ordered Filled Start Stop Current Ordering Indication Dosage Frequency Signature Comments Components Source Medication Medication Date Date Medication? Clinician (SIG) Name Name tetanus-dip 2019- 2020- No .5mL 0.5 mL, Un melanie htheria 09-30 Intramuscu ity o f toxoids 12:00: 11:57 lar, ONCE, Jonatan as (TENIVAC) 00 :00 1 dose, Medical 5-2 [facility]/0.5 mL 11/22/20 injection at 0600, 0.5 mL Routine metFORMIN 2020-1 Yes 1000mg Take 1,000 Univers 1,000 mg 1-22 mg by ity of tablet 10:19: mouth 2 [place] [address] (two) Medical times Branch daily with meals. hydroCHLORO 2020-1 Yes 25mg Take 25 mg Univers thiazide 25 1-22 by mouth ity of mg tablet 10:19: daily. [place] [address] Medical Branch traMADoL 2020-1 Yes [id number] 50mg [...] by ity of tablet 13:31: mouth 2 [place] [address] (two) Medical times [place] daily with meals. hydroCHLORO 2020-0 Yes 25mg Take 25 mg Univers thiazide 25 6-29 by mouth ity of mg tablet 13:31: daily. [place] [address] Medical [place] metFORMIN 2020-0 Yes 1000mg Take 1,000 Univers 1,000 mg 6-29 mg by ity of tablet 13:31: mouth 2 [place] [address] (two) Medical times Branch daily with meals. hydroCHLORO 2019-0 Yes 25mg Take 25 mg Univers thiazide 25 6-29 by mouth ity of mg tablet 13:31: daily. [place] [address] Medical Branch metFORMIN 2019-0 Yes 1000mg Take 1,000 Univers 1,000 mg 6-29 mg by ity of tablet 13:31: mouth 2 [place] [address] (two) Medical times [place] daily with meals. hydroCHLORO 2019-0 Yes 25mg Take 25 mg Univers thiazide 25 6-29 by mouth ity of mg tablet 13:31: daily. [place] [address] Medical Branch atorvastati Yes TAKE 1 Univ ers n 10 mg 6-23 TABLET BY ity of tablet 00:00: MOUTH ONCE [place] 00 DAILY FOR Medical 30 DAYS Branch lisinopril Yes TAKE 1 Unive rs 10 mg 6-23 TABLET BY ity of tablet 00:00: MOUTH ONCE [place] 00 DAILY FOR Medical 30 DAYS Branch atorvastati Yes TAKE 1 Univ ers n 10 mg 6-23 TABLET BY ity of tablet 00:00: MOUTH ONCE [place] DAILY FOR Medical 30 DAYS Branch lisinopril Yes TAKE 1 Unive rs 10 mg 6-23 TABLET BY ity of tablet 00:00: MOUTH ONCE [place] 00 DAILY FOR Medical 30 DAYS Branch atorvastati Yes TAKE 1 Univ ers n 10 mg 6-23 TABLET BY ity of tablet 00:00: MOUTH ONCE DAILY FOR Medical 30 DAYS Branch lisinopril Yes TAKE 1 Unive rs 10 mg 6-23 TABLET BY ity of tablet 00:00: MOUTH ONCE [place] 00 DAILY FOR Medical 30 DAYS Branch atorvastati Yes TAKE 1 Univ ers n 10 mg 6-23 TABLET BY ity of tablet 00:00: MOUTH ONCE [place] 00 DAILY FOR Medical 30 DAYS Branch lisinopril Yes TAKE 1 Unive rs 10 mg 6-23 TABLET BY ity of tablet 00:00: MOUTH ONCE [place] 00 DAILY FOR Medical 30 DAYS Branch [...] tablet by ity of tablet 00:00: mouth. [address] PARoxetine Yes 1{tbl} Take 1 Uni vers 10 mg 6-19 tablet by ity of tablet 00:00: mouth. [address] PARoxetine Yes 1{tbl} Take 1 Uni vers 10 mg 6-19 tablet by ity of tablet 00:00: mouth. [address] PARoxetine Yes 1{tbl} Take 1 Uni vers 10 mg 6-19 tablet by ity of tablet 00:00: mouth. [address] PARoxetine Yes 1{tbl} Take 1 MD (PAXIL) 10 6-19 tablet by Iraj rso mg tablet 00:00: mouth n 00 daily. empaglifloz Yes 1{tbl} Take 1 Un melanie in 5-31 tablet by ity of ([place]) 00:00: [place]. [place] 10 mg Tab [facility] Branch empaglifloz Yes 1{tbl} Take 1 Un melanie in 5-31 tablet by ity of ([place]) 00:00: [place]. [place] 10 mg Tab [facility] empaglifloz Yes 1{tbl} Take 1 Un melanie in 5-31 tablet by ity of ([place]) 00:00: [place]. [place] 10 mg Tab [place] Branch empaglifloz 2019-0 Yes 1{tbl} Take 1 Un melanie in 5-31 tablet by ity of (J[place]) 00:00: [place]. [place] 10 mg Tab 00 [facility] Branch JARDIANCE 2019-0 Yes 1{tbl} Take 1 MD 10 mg tab 5-31 tablet by Norbert so 00:00: mouth n 00 daily. metFORMIN 2019-0 Yes 1000mg Take 1,000 Univers 1,000 mg 5-17 mg by ity of tablet 17:26: mouth 2 [place] [address] ([facility] Medical times [place] daily with meals. hydroCHLORO 2019-0 Yes 25mg Take 25 mg Univers thiazide 25 5-17 by mouth ity of mg tablet 17:26: daily. [address] metFORMIN 2019-0 Yes 1000mg Take 1,000 Univers 1,000 mg 5-17 mg by ity of tablet 17:26: mouth [address] times [place] daily with meals. hydroCHLORO 2019-0 Yes 25mg Take 25 mg Univers thiazide 25 5-17 by mouth ity of mg tablet 17:26: daily. [address] metFORMIN 2019-0 Yes 1000mg Take 1,000 Univers 1,000 mg 5-17 mg by ity of tablet 17:26: mouth [address] daily with meals. hydroCHLORO 2019-0 Yes 25mg Take 25 mg Univers thiazide 25 5-17 by mouth ity of mg tablet 17:26: daily. [address] sulfamethox 2019-0 Yes [id number] 1{tbl} Take 1 Univers azole-trime 5-17 tablet by ity of thoprim 00:00: mouth [place] 800-160 mg 00 every 12 Medic al per tablet (twelve) Branc h hours. sulfamethox 2019-0 Yes [id number] 1{tbl} Take 1 Univers azole-trime 5-17 tablet by ity of thoprim 00:00: mouth [place] 800-160 mg 00 every 12 Medic al per tablet (twelve) Branc h hours. sulfamethox 2019-0 Yes [id number] 1{tbl} Take 1 Univers azole-trime 5-17 tablet by ity of thoprim 00:00: mouth [place] 800-160 mg 00 every 12 Medic al per tablet (twelve) Branc h hours. sulfamethox 2019-0 Yes [id number] 1{tbl} Take 1 Univers azole-trime 5-17 tablet by ity of thoprim 00:00: mouth [place] 800-160 mg 00 every 12 Medic al per tablet (twelve) Branc h hours. sulfamethox 2019- Yes [id number] 1{tbl} Take 1 Univers azole-trime 5-17 tablet by ity of thoprim 00:00: mouth [place] 800-160 mg 00 every 12 Medic al per tablet (twelve) Branc h hours. sulfamethox 2019- Yes [id number] 1{tbl} Take 1 Univers azole-trime 5-17 tablet by ity of thoprim 00:00: mouth [place] 800-160 mg 00 every 12 Medic al per tablet (twelve) Branc h hours. sulfamethox 2020- No [id number] 1{tbl} Take 1 Univers azole-trime 5-17 - [...] HCl [facility]an in the [facility] - morning [facility] ent Clinics Hydrochloro Hydrochloro Yes Jerod [address] [facility] thiazide thiazide Duran in the Luke s - morning [facility] ent Clinics Vitamin D Vitamin D Yes Jerod [address] [facility] Duran [facility] - [facility] ent Clinics Lisinopril Lisinopril Yes Jerod TAKE [address] [facility] Duran TABLET BY [facility] - MOUTH ONCE Memoria DAILY l [facility] ent Clinics Metformin Metformin Yes Jerod [address] [facility] HCl HCl Duran with a [facility] - meal [facility] ent Clinics Ferrous Ferrous Yes Jerod as [facility] Sulfate Sulfate Duran directed Luke s - [facility] ent Clinics Jardiance Jardiance 2019- No Jerod [address] [facility] [facility] 07-14 Duran [facility] - 00:00 Memoria :00 [facility] ent Clinics Immunizations Ordered Filled Immunization Date Status Comments Sour e Immunization Name Name Td 2020-07-31 Completed University of 00:00:00 [facility] Afluria single dose Afluria single dose 2019-06-[address] [facility]00 [facility] Afluria Afluria 2018-11-[address] [facility]00 [facility] Vital Signs Vital Name Observation Time Observation Value Comments Source Systolic blood 2020-07-31 12:05:00 127 mm[Hg] Univer sity of pressure [facility] Branch Diastolic blood 2020-07-31 12:05:00 78 mm[Hg] Unive rsity of pressure [place] [facility] Heart rate 2020-07-31 12:05:00 90 /min Universi ty of [place] [facility] Respiratory rate 2020-07-31 12:05:00 16 /min Univ ersity of [place] [facility] Oxygen saturation in 2020-07-31 12:05:00 98 /min University of Arterial blood by [facility] Pulse oximetry Branch Body temperature 2020-07-31 10:23:00 36.33 Dan[place] Univ ersity of [place] [facility] Body height 2020-07-31 10:23:00 157.5 cm [facility]i ty [facility] [place] [facility] Body weight 2020-07-31 10:23:00 95.255 kg [facility] [place] [facility] BMI 2020-07-31 10:23:00 38.41 kg/m2 [facility] [place] [facility] Systolic blood 2020-07-31 12:05:00 127 mm[Hg] Univer sity of pressure [place] [facility] Diastolic blood 2020-07-31 12:05:00 78 mm[Hg] Unive rsity of pressure [place] [facility] Heart rate 2020-07-31 12:05:00 90 /min [facility]i ty [facility] [place] [facility] Respiratory rate 2020-07-31 12:05:00 16 /min Univ ersity of [place] [facility] Oxygen saturation in 2020-07-31 12:05:00 98 /min University of Arterial blood by [facility] Pulse oximetry Branch Body temperature 2020-07-31 10:23:00 36.33 [place] Univ ersity of [place] [facility] Body height 2020-07-31 10:23:00 157.5 cm [facility]i ty [facility] [place] [facility] Body weight 2020-07-31 10:23:00 95.255 kg Universi ty [facility] [place] [facility] BMI 2020-07-31 10:23:00 38.41 kg/m2 Universi ty of [facility] Branch Systolic blood 2020-03-07 13:32:00 133 mm[Hg] Univer sity of pressure [facility] Diastolic blood 2020-03-07 13:32:00 86 mm[Hg] Unive rsity of pressure [facility] Heart rate 2020-03-07 13:32:00 74 /min [facility] Body temperature 2020-03-07 13:32:00 36.44 [place] [facility] 2020-03-07 13:32:00 18 /min [facility] Body weight 2020-03-07 13:32:00 96.616 kg [facility] BMI 2020-03-07 13:32:00 38.96 kg/m2 [facility] Oxygen saturation in 2020-03-07 13:32:00 98 /min [facility] Arterial blood by [facility] Pulse oximetry [place] Procedures Procedure Date / Time Performed Performing Clinician Sourc e ME LAYR CLOS WND 2020-07-31 11:40:00 Eayd Crouch [facility] FACE,FACIAL 2.5-5 CM [facility] Plan of Care Planned Activity Planned Date Details Comments Source Future Scheduled Test 1975-02-27 00:00:00 COVID-19 Vaccination MD Mattson (1) [code = COVID-19 Vaccination (1)] Encounters Start End Encounter Admission Attending Care Care Encounter Source Date/Time Date/Time Type Type Clinicians Facility Department ID 2021-07-08 Emergency [facility] [id number] [facility] 07:06:17 ity [facility] 2021-08-16 2021-08-16 ambulatory [facility] [id number] [facility] 2021-05-12 2021-05-12 Outpatient [facility] [id number] [facility] 2021-05-11 2021-05-11 Outpatient [facility] [id number] [facility] 2021-04-12 2021-04-12 Outpatient [facility] [id number] [facility] 2021-02-17 2021-02-17 Outpatient [facility] [id number] [facility] 2021-02-08 2021-02-08 Outpatient [facility] [id number] [facility] 2021-02-03 2021-02-03 Outpatient [facility] [id number] [facility] 2021-01-24 2021-01-24 Outpatient [facility] [id number] [facility] 2021-01-23 2021-01-23 Outpatient [facility] [id number] [facility] 2021-01-06 2021-01-06 Outpatient [facility] [id number] [facility] 2020-12-22 2020-12-22 Outpatient [facility] [id number] [facility] 2020-12-14 2020-12-14 Outpatient [facility] [id number] [facility] 2020-12-05 2020-12-05 Outpatient [facility] [id number] [facility] 2020-11-25 2020-11-25 Outpatient [facility] [id number] [facility] 2020-08-08 2020-08-08 Outpatient [facility] [id number] [facility] 2020-08-01 2020-08-01 Outpatient [facility]LMLC [facility] [id number] [facility] [facility] 2020-07-31 2020-07-31 Emergency [facility], [facility] [id number] [facility] 04:17:00 06:08:00 Eyad Epps Carin [id number] ity of [place] [id number] [place] [address] [phone] [place] [id number] Branch 2020-07-31 2020-07-31 Emergency [facility], [facility] [id number] 04:17:00 06:08:00 Eyad Epps Carin [id number] [place] [address] [place] [address] [id number] [facility] 2020-05-25 2020-05-25 [facility] [id number] [facility] [address] 08:28:00 08:28:00 [facility] 2020-03-22 2020-03-22 [facility] [id number] 08:00:00 08:00:00 [facility] 2020-03-08 2020-03-08 Telephone [facility] [id number] [facility] 00:00:00 00:00:00 Violeta Del Rosario [id number] i ty of [place] [id number] [place] [address] [id number] [place] [address] Branch 2020-03-08 2020-03-08 Telephone [facility] [id number] 00:00:00 00:00:00 Violeta Del Rosario [id number] [place] [id number] [place] [phone] [facility] 2020-03-07 2020-03-07 Urgent Pob1, Acute Care Clinic [facility] [id number] Univers 08:20:03 08:40:03 [facility] [id number] ity of [place] [id number] Jonatan as Professio [phone] [address] Office Building One 2020-03-07 2020-03-07 Outpatient Jatinder PARHAM [facility] [id number] Univers 08:40:00 08:40:00 YULY ity [facility] 2020-01-19 2020-01-19 [facility] [id number] 13:45:00 13:45:00 Chi2gel [facility] Outpati ent [facility] 2019-11-25 2019-11-25 Nurse Jennifer MCDANIEL [id number] Univers 00:00:00 00:00:00 Triage julio Beccalavell MCGINNIS [id number] ity [facility] [id number] Jon[place] as [phone] [address] 2019-11-25 2019-11-25 Nurse VIOLETA Brar [id number] Univers 00:00:00 00:00:00 Triage Bri MCGINNIS [id number] it y of [facility] [id number] Jon[place] as [id number] [address] 2019-09-14 2019-09-14 [facility] [id number] 14:15:00 14:15:00 Madeleine Market [facility] Medicine Outpati ent Clinics 2019-08-17 2019-08-17 [facility] [id number] 16:50:00 16:50:00 Chi2gel [facility] Medicine Outpati ent Clinics 2019-06-02 2019-06-02 [facility] [id number] 08:45:00 08:45:00 Chi2gel [facility] Medicine Outpati ent Clinics 2019-04-10 2019-04-10 [facility] [id number] 12:23:00 12:23:00 Chi2gel [facility] Medicine Outpati ent Clinics 2019-04-02 2019-04-02 Outpatient MHFB [id number] [id number] 05:39:00 05:39:00 2019-03-31 2019-03-31 [facility] [id number] 11:59:00 11:59:00 t Enomaly [facility] ent [facility] 2019-03-31 2019-03-31 [facility] [id number] 11:55:00 11:55:00 t Enomaly [facility] ent [facility] 2019-03-18 2019-03-18 Outpatient LATOSHA MARI MDA MDA [id number] MD 10:03:12 10:03:12 SASKIA vanegas 2019-02-19 2019-02-19 [facility] [id number] 08:14:00 08:14:00 [facility] Outpati ent Clinics 2019-02-17 2019-02-17 [facility] [id number] 09:45:00 09:45:00 t [facility] Outpati ent Clinics 2019-01-05 2019-01-05 [facility] [id number] 16:38:00 16:38:00 t [email or web address] [facility] Outthe medical center ent [facility] 2019-01-01 2019-01-01 [facility] [id number] 09:48:00 09:48:00 t [facility] Outpati ent Clinics 2018-12-31 2018-12-31 [facility] [id number] [facility] 16:40:00 16:40:00 t Enomaly [facility] Outthe medical center ent Clinics 2018-12-30 2018-12-30 [facility] [id number] 11:15:00 11:15:00 t [facility] Outpati ent Clinics 2018-12-12 2018-12-12 [facility] [id number] 15:33:00 15:33:00 t [employer] [facility] s - Drive [facility] Medicine Outpati ent Clinics 2018-12-12 2018-12-12 [facility] [id number] 12:57:00 12:57:00 t [place] [employer] [place] - Drive [facility] Outpati ent Clinics 2018-12-12 2018-12-12 [facility] [id number] 08:15:00 08:15:00 t [place] [employer] [place] - Drive [facility] Medicine Outpati ent Clinics 2018-12-04 2018-12-04 [facility] [id number] 11:46:00 11:46:00 t [place] [employer] s - Drive [facility] Outpati ent Clinics 2018-12-03 2018-12-03 [facility] [id number] 11:55:00 11:55:00 [facility] Outpati ent Clinics 2018-11-05 2018-11-05 [facility] [id number] 15:59:00 15:59:00 t [place] [employer] - Drive [facility] Outpati ent Clinics 2018-11-05 2018-11-05 [facility] [id number] 10:00:00 10:00:00 t [place] Rizzoma s - Drive [facility] Outpati ent Clinics 2018-08-26 2018-08-26 [facility] [id number] 09:15:00 09:15:00 t [place] Rizzoma s - Drive [facility] Outpati ent Clinics Results Test Description Test Time Test Results Result Source Comments Comments Laceration 2020-07-11 Eyad Crouch MD ? Un iversity of Repair 2 ? 07/31/2020 ?5:40 [facility] 11:40:00 AMLaceration Branch RepairPerformed by: Eyad Crouch [...]
--- OUTSIDE RECORDS SUMMARY | 2021-10-02 17:12 | XMS REPORT | Clinical Summary ---
:1970 Author Organization [facility] MD Toussaint [facility] Address [address] [place] [address] Care Team Providers Name Role Phone Hu [...] Alondra Collins MD S ARS-CoV-2 vaccination after 10/02/2020 Surgical History Surgery Date Site/Laterality Comments TUBAL [...] Vaccination (1) 02/27/1976 Results Not on fileafter 10/02/2020 Insurance Payer Benefit Plan / Subscriber ID Effective Dates Phone Addre ss Type Group [facility] [id number] 2018-Presen [address] [place] [address] Care Teams Excellence Consultant Relationship Specialty Start Date End Date Carlos Liu PCP - External Obstetrics/Gynecology 02/25/19 "Kassie"MD Referring Aileen Stevens, PCP - General Gynecological Oncology 02/25/19 [place] [address]
[2021-10-02] MEDS ORDERED: MORPHINE 4 MG/ML SYR ONE (18:59)
[2021-10-02] MEDS ORDERED: ONDANSETRON 4 MG/2 ML VIAL ONE (18:59)
[2021-10-02 19:41] LABS: Absolute Lymphocytes (CBC) 2.4 K/uL (0.7-4.9); Hematocrit 43.1 % (36.0-45.0); Lymphocytes % 26.7 % (15.3-44.8); MPV 8.1 fL (7.6-11.3)
[2021-10-02 19:57] LABS: Albumin 4.3 g/dL (3.4-5.0); BUN Blood Urea Nitrogen 13 mg/dL (7-18); Bicarbonate 28 mmol/L (21-32); Glucose Level 72 mg/dL (74-106); Lipase 433 U/L (73-393); Potassium 3.4 mmol/L (3.5-5.1); Sodium Level 136 mmol/L (136-145)
[2021-10-02 20:01] LABS: AST/SGOT 18 U/L (15-37); Alkaline Phosphatase 93 U/L (45-117); Protein, Total 9.2 g/dL (6.4-8.2)
[2021-10-02 20:03] LABS: ALT/SGPT 32 U/L (12-78); Bilirubin Direct 0.1 mg/dL (0-0.2); Bilirubin Total 0.5 mg/dL (0.2-1.0)
[2021-10-02 20:50] LABS: Urine Blood Trace-intact (Negative); Urine Glucose Negative (Negative); Urine Protein Negative (Negative); Urine Specific Gravity <=1.005 (1.005-1.030)
--- NOTE | 2021-10-02 21:00 | RAD REPORT ---
EXAM DESCRIPTION: CT - Abdomen Pelvis W Contrast - 10/02/2021 8:26 pm CLINICAL HISTORY: ABD PAIN COMPARISON: Abdomen Pelvis W Contrast dated 12/02/2018; [place] Protocol dated 01/30/2021 TECHNIQUE: Biphasic, helical CT imaging of the abdomen and pelvis was performed following 100 ml non -ionic IV contrast. No oral contrast administered. All CT scans are performed using dose optimization technique as appropriate and may include automated exposure control or mA/KV adjustment according to patient size. FINDINGS: No suspicious findings in the lung bases. The liver, spleen, and pancreas show no suspicious focal findings. Liver shows a borderline to mild f atty infiltration pattern. Gallbladder and biliary tree are also without suspicious finding. Symmetric renal function is seen with no hydronephrosis or suspicious renal mass. Small simple cysts are present in both kidneys. There is a 5 mm nonobstructing calculus in the lower pole of the left ki dney. No pyelonephritis or acute parenchymal process. No bladder abnormalities. No adrenal abnormalit ies. Uterus is absent. No ovarian abnormality seen. No dilated bowel loops or bowel wall thickening. No appendicitis findings. No free air, free fluid or inflammatory stranding. No hernia, mass or bulky lymphadenopathy. No suspicious bony findings. IMPRESSION: Contrast enhanced CT abdomen and pelvis showing no acute or emergent finding. Nonacute findings detailed in the body of the report. No significant changes from comparison.
--- NOTE | 2021-10-02 21:34 | EDPHYS ---
Physician Documentation [facility] Name: Luz Maria Gonzalez Age: 51 yrs Sex: Female : 1970 Arrival Date: 10/02/2021 Time: 17:11 Bed 12 Private MD: Jerod Duran ED Physician Adrian Henriquez HPI: 10/02 19:02 This 51 yrs old Female presents to ER via Ambulatory with complaints of pm1 Abdominal Pain, Back Pain. 19:02 The patient presents with abdominal pain in the right upper quadrant, right lower pm1 quadrant. Onset: The symptoms/episode began/occurred yesterday. The symptoms radiate to the right flank. Associated signs and symptoms: Pertinent positives: nausea, Pertinent negatives: chest pain, diarrhea, dysuria, fever, shortness of breath, vomiting. The symptoms are described as crampy. Modifying factors: The symptoms are alleviated by nothing, the symptoms are aggravated by nothing. Severity of pain: in the emergency department the pain has improved. The patient has experienced a previous episode, approximately 9 months ago, similar to prior kidney stone. The patient has not recently seen a physician. 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 - Social history:: Smoking status: Patient denies any tobacco usage or history of. ROS: 19:02 Constitutional: Negative for fever, chills, and weight loss, Cardiovascular: Negative pm1 for chest pain, palpitations, and edema, Respiratory: Negative for shortness of breath, cough, wheezing, and pleuritic chest pain. 19:02 : Negative for injury, bleeding, discharge, and swelling, MS/Extremity: Negative for injury and deformity, Skin: Negative for injury, rash, and discoloration, Neuro: Negative for headache, weakness, numbness, tingling, and seizure. 19:02 Abdomen/GI: Positive for abdominal pain, nausea, of the right upper quadrant and right lower quadrant, Negative for vomiting, diarrhea. 19:02 Back: Positive for flank pain, on the right. 19:02 All other systems are negative. Exam: 19:02 Constitutional: This is a well developed, well nourished patient who is awake, alert, pm1 and in no acute distress. Head/Face: Normocephalic, atraumatic. 19:02 Skin: Warm, dry with normal turgor. Normal color with no rashes, no lesions, and no evidence of cellulitis. MS/ Extremity: Pulses equal, no cyanosis. Neurovascular intact. Full, normal range of motion. 19:02 Eyes: Exam is negative for acute changes, Periorbital structures: appear normal, Extraocular movements: no acute changes, Conjunctiva: no acute changes, no injection. 19:02 ENT: Exam is negative for acute changes, Mouth: no acute changes, Lips: normal, moist, Oral mucosa: normal, pink and intact, moist. 19:02 Cardiovascular: Exam negative for acute changes, Rate: normal, Rhythm: regular, Pulses: no pulse deficits are appreciated. 19:02 Respiratory: Exam negative for acute changes, respiratory distress, shortness of breath, Breath sounds: are clear throughout. 19:02 Abdomen/GI: Palpation: soft, in all quadrants, mild abdominal tenderness, in the right upper quadrant and right lower quadrant. 19:02 Back: pain, that is mild, of the right mid back, vertebral tenderness, is not appreciated. 19:02 Neuro: Exam negative for acute changes, Orientation: is normal, Mentation: is normal, Motor: is normal, moves all fours. Vital Signs: 17:34 BP 132 / 76; Pulse 75; Resp 17 S; Temp 97.8(TE); Pulse Ox 99% on R/A; Weight 84.37 kg jd3 (R); Height 5 ft. 2 in. (157.48 cm) (R); Pain 9/10; 21:09 BP 131 / 63; Pulse 65; Resp 18 S; Pulse Ox 100% on R/A; as6 17:34 Body Mass Index 34.02 (84.37 kg, 157.48 cm) jd3 MDM: 18:55 Patient medically screened. pm1 21:31 ED course: Patient without any urinary symptoms. Offered urine microscopy if she has pm1 any concerns. CT abdomen/pelvis negative for acute findings. 21:31 Data reviewed: vital signs. Data interpreted: Pulse oximetry: on room air is 100 %. pm1 Interpretation: normal. Counseling: I had a detailed discussion with the patient and/or guardian regarding: the historical points, exam findings, and any diagnostic results supporting the discharge/admit diagnosis, lab results, radiology results, the need for outpatient follow up, to return to the emergency department if symptoms worsen or persist or if there are any questions or concerns that arise at home. 10/02 18:56 Order name: Basic Metabolic Panel; Complete Time: 20:25 pm1 10/02 18:56 Order name: CBC with Diff; Complete Time: 20:01 pm1 10/02 18:56 Order name: Hepatic Function; Complete Time: 20:25 pm1 10/02 18:56 Order name: Lipase; Complete Time: 20:25 pm1 10/02 18:56 Order name: CT Abd/Pelvis - IV Contrast Only; Complete Time: 21:15 pm1 10/02 20:49 Order name: Urine Dipstick-Ancillary; Complete Time: 21:00 EDMS 10/02 18:56 Order name: IV Saline Lock; Complete Time: 19:01 pm1 10/02 18:56 Order name: Labs collected and sent; Complete Time: 19:01 pm1 10/02 20:25 Order name: Urine Dipstick-Ancillary (obtain specimen); Complete Time: 20:49 pm1 Administered Medications: 19:01 Drug: morphine 4 mg Route: IVP; Site: right antecubital; jh5 21:19 Follow up: Response: No adverse reaction; RASS: Alert and Calm (0) as6 19:02 Drug: Zofran (Ondansetron) 4 mg Route: IVP; Site: right antecubital; jh5 21:19 Follow up: Response: No adverse reaction as6 Disposition: 10/03 09:01 Co-signature as Attending Physician, Adrian Henriquez MD I agree with the assessment and kdr plan of care. Disposition Summary: 10/02/21 21:33 Discharge Ordered Location: Home pm1 Problem: new pm1 Symptoms: have improved pm1 Condition: Stable pm1 Diagnosis - Abdominal pain, unspecified pm1 Followup: pm1 - With: Emergency Department - When: As needed - Reason: Worsening of condition Followup: pm1 - With: Private Physician - When: 2 - 3 days - Reason: Recheck today's complaints, Continuance of care, Re-evaluation by your physician Discharge Instructions: - Discharge Summary Sheet pm1 - Abdominal Pain, Adult pm1 Forms: - Medication Reconciliation Form pm1 - Thank You Letter pm1 - Antibiotic Education pm1 - Prescription Opioid Use pm1 Prescriptions: - dicyclomine 20 mg Oral tablet - take 1 tablet by ORAL route every 6 hours As needed; 20 tablet; Refills: 0, pm1 Product Selection Permitted - ondansetron 4 mg Oral tablet,disintegrating - place 1 tablet by TRANSLINGUAL route every 8 hours As needed; 15 tablet; pm1 Refills: 0, Product Selection Permitted Signatures: Dispatcher [employer] EDAdrian Malhotra MD MD kdr Marinas, Patrick, NP NIB ASSEMBLER pm1 Marcello Tellez RN RN jd3 Reta Abel RN RN jh5 Montez Salinas RN as6
--- NOTE | 2021-10-02 21:34 | ER ---
Nurse's Notes [facility] Name: Luz Maria Gonzalez Age: 51 yrs Sex: Female : 1970 Arrival Date: 10/02/2021 Time: 17:11 Bed 12 Private MD: Jerod Duran Diagnosis: Abdominal pain, unspecified Presentation: 10/02 17:31 Chief complaint: Patient states: "I have been having stomach pain on the right side jd3 that comes around to my back with nausea.". Coronavirus screen: At this time, the client does not indicate any symptoms associated with coronavirus-19. Ebola Screen: No symptoms or risks identified at this time. Initial Sepsis Screen: Does the patient meet any 2 criteria? No. Patient's initial sepsis screen is negative. Does the patient have a suspected source of infection? No. Patient's initial sepsis screen is negative. Risk Assessment: Do you want to hurt yourself or someone else? Patient reports no desire to harm self or others. Onset of symptoms was September 30, 2021. 17:31 Method Of Arrival: Ambulatory [facility] 17:31 Acuity: ROLO 3 jd3 Triage Assessment: 19:23 General: Appears in no apparent distress. obese, well groomed, well developed, well jh5 nourished, Behavior is calm, cooperative, appropriate for age. Pain: Complains of pain in abdomen. GI: Abdomen is round non-distended, obese. 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 - Social history:: Smoking status: Patient denies any tobacco usage or history of. Screenin:23 Abuse screen: Denies threats or abuse. Denies injuries from another. Nutritional jh5 screening: No deficits noted. Tuberculosis screening: No symptoms or risk factors identified. Fall Risk None identified. Assessment: 19:24 GI: Bowel sounds present X 4 quads. jh5 19:24 GI: Abd is soft and non tender. jh5 21:09 Reassessment: Patient and/or family updated on plan of care and expected duration. Pain as6 level reassessed. Patient is alert, oriented x 3, equal unlabored respirations, skin warm/dry/pink. Patient states feeling better. Vital Signs: 17:34 BP 132 / 76; Pulse 75; Resp 17 S; Temp 97.8(TE); Pulse Ox 99% on R/A; Weight 84.37 kg jd3 (R); Height 5 ft. 2 in. (157.48 cm) (R); Pain 9/10; 21:09 BP 131 / 63; Pulse 65; Resp 18 S; Pulse Ox 100% on R/A; as6 17:34 Body Mass Index 34.02 (84.37 kg, 157.48 cm) jd3 ED Course: 17:11 Patient arrived in ED. mr 17:11 Jerod Duran DO is Private Physician. mr 17:32 Triage completed. jd3 17:34 Arm band placed on. jd3 18:43 [facility] pm1 18:43 Adrian Henriquez MD is Attending Physician. pm1 18:56 Reta Abel, VALENTÍN is Primary Nurse. 5 19:22 Basic Metabolic Panel Sent. jh5 19:22 CBC with Diff Sent. jh5 19:22 Hepatic Function Sent. jh5 19:22 Lipase Sent. jh5 19:23 Patient has correct armband on for positive identification. Bed in low position. Call [facility] light in reach. Side rails up X 1. 19:23 Inserted saline lock: 20 gauge in left wrist, using aseptic technique. jh5 19:23 No provider procedures requiring assistance completed. 5 20:26 CT Abd/Pelvis - IV Contrast Only In Process Unspecified. EDMS 21:49 IV discontinued, intact, bleeding controlled, No redness/swelling at site. Pressure as6 dressing applied. Administered Medications: 19:01 Drug: morphine 4 mg Route: IVP; Site: right antecubital; [facility] 21:19 Follow up: Response: No adverse reaction; RASS: Alert and Calm (0) as6 19:02 Drug: Zofran (Ondansetron) 4 mg Route: IVP; Site: right antecubital; [facility] 21:19 Follow up: Response: No adverse reaction as6 Outcome: 21:33 Discharge ordered by . pm1 21:48 Discharged to home ambulatory, with significant other. as6 21:48 Condition: stable 21:48 Discharge instructions given to patient, Instructed on discharge instructions, follow up and referral plans. medication usage, Demonstrated understanding of instructions, follow-up care, medications, Prescriptions given X 2. 21:49 Patient left the ED. as6 Signatures: Dispatcher [employer] EDVT Brie Mireles HenrryDwight, [employer] ARTILLERY SPECIALIST pm1 Marcello Tellez RN RN jd3 Reta Abel RN RN jh5 Montez Salinas RN RN as6
[2021-10-03 03:21] VITALS: TEMP 97.8
[2021-10-03 03:22] VITALS: BP 131/63; O2SAT 100
== END 2021-10-02 21:49 | disposition home or self-care (01) ==
LOC: ER 17:09
DX: R10.9 Unspecified abdominal pain (principal); E11.9 Type 2 diabetes mellitus without complications; I10 Essential (primary) hypertension
CPT/HCPCS: 36415; 74177; 80048; 80076; 81003; 83690; 85025; 96374; 96375; 99284; J2405; Q9967